=== PATIENT | male | born 1970 | race Caucasian/White ===

== ENCOUNTER 2020-12-05 13:14 | Inpatient (IN) | payer SELFPAY ==
--- NOTE | 2020-12-05 13:27 | Emergency Department Report ---
ED General Adult HPI - General Stated complaint: SWOLLEN LEGS PUI?: No Time Seen by Provider: 12/05/20 13:25 Source: patient, EMS - History of Present Illness Initial comments: Patient was brought in by EMS due to chest pain and palpitations. He is Turkish-speaking. He complains of a 2-day history of substernal chest pain associated palpitations and shortness of breath. He is reported that his legs are also swollen. He has no cough or congestion. There is no vomiting or diarrhea. He states that he came in because his family wanted him to be seen. EMS reports that the family wanted him to be seen previously, but the patient refused. He finally acquiesced today. They noticed that he was in atrial fibrillation with rapid ventricular response. He has no prior history of atrial fibrillation. He also reported significant anasarca with scleral icterus and jaundice. Patient had not noticed any color change. He denies abdominal pain. There is no vomiting. He has no cough. He states that the palpitations and chest pain started over the last 2 days. - Related Data Allergies Allergy/AdvReac Type Severity Reaction Status Date / Time No Known Allergies Allergy Unverified 12/05/20 15:43 ED Review of Systems ROS: Stated complaint: SWOLLEN LEGS Other details as noted in HPI Comment: All other systems reviewed and negative Constitutional: denies: fever Eyes: denies: vision change ENT: denies: throat pain Respiratory: denies: cough Cardiovascular: as per HPI, chest pain, palpitations Endocrine: denies: unexplained weight loss Gastrointestinal: denies: abdominal pain, vomiting Genitourinary: denies: dysuria Musculoskeletal: denies: back pain Skin: denies: rash Neurological: denies: headache Psychiatric: denies: suicidal thoughts Hematological/Lymphatic: denies: easy bruising ED Past Medical Hx - Past Medical History Previous Medical History?: No - Family History Family history: diabetes - Social History Smoking Status: Never Smoker ED Physical Exam - General Limitations: Language Barrier General appearance: alert, in no apparent distress, obese - Head Head exam: Present: atraumatic, normocephalic, normal inspection - Eye Eye exam: Present: PERRL, EOMI, scleral icterus - ENT ENT exam: Present: normal exam, mucous membranes moist - Neck Neck exam: Present: full ROM. Absent: meningismus - Respiratory Respiratory exam: Present: normal lung sounds bilaterally. Absent: respiratory distress - Cardiovascular Cardiovascular Exam: Present: tachycardia, irregular rhythm - GI/Abdominal GI/Abdominal exam: Present: soft. Absent: distended, tenderness - Extremities Exam Extremities exam: Present: pedal edema (Bilateral 4+) - Back Exam Back exam: Absent: CVA tenderness (R), CVA tenderness (L) - Neurological Exam Neurological exam: Present: alert, oriented X3. Absent: motor sensory deficit - Psychiatric Psychiatric exam: Present: normal affect, normal mood - Skin Skin exam: Present: warm, dry, other (Jaundiced) ED Course Vital Signs 12/05/20 12/05/20 12/05/20 14:58 15:01 15:15 Pulse Rate 133 H 127 H 147 H Respiratory 27 H 23 21 Rate Blood Pressure 102/83 O2 Sat by Pulse 94 Oximetry 12/05/20 12/05/20 12/05/20 15:31 15:45 16:01 Pulse Rate 134 H 123 H 134 H Respiratory 22 21 23 Rate Blood Pressure 104/80 112/75 114/77 O2 Sat by Pulse 100 98 Oximetry 12/05/20 12/05/20 12/05/20 16:13 16:15 16:31 Pulse Rate 143 H 82 95 H Respiratory 22 17 Rate Blood Pressure 106/74 101/39 O2 Sat by Pulse 100 Oximetry - Reevaluation(s) Reevaluation #1: 12/05/20 13:27 EMS was actually met upon arrival at 1305 hrs. IV and labs ordered. EKG was ordered. Reevaluation #2: 12/05/20 15:25 Sodium has been reviewed. Labs were being processed. Patient will require admission. Cardizem has been ordered. Reevaluation #3: 12/05/20 18:50 Patient did get improvement with Cardizem. Obviously, we will still proceed with admission. ED Medical Decision Making - Lab Data Result diagrams: 12/05/20 14:14 12/05/20 14:14 - EKG Data -: EKG Interpreted by Me EKG shows normal: intervals Rate: tachycardia (Patient does have atrial fibrillation with rapid ventricular response. There are nonspecific ST and T wave changes noted.) - EKG Data When compared to previous EKG there are: changes noted Interpretation: nonspecific ST-T wave kathrine - Radiology Data Radiology results: report reviewed - Medical Decision Making Patient presented with multiple issues. He was ultimately found to have new onset atrial fibrillation with RVR. This did require Cardizem. Patient has a history of alcohol consumption and was profoundly jaundiced. He likely has some degree of alcoholic liver disease. He will be admitted for further evaluation. He also has hyponatremia at 110 which will require further treatment at admission. He may benefit from fluid restriction. Patient does not have significant hypomagnesemia, but it is sufficiently low that requires treatment. There was no change in troponin. He may develop alcohol withdrawal, but does not have any evidence of tremor at this time. Patient has been discussed with the hospitalist who agrees to admit. Critical Care Time: Yes Critical care attestation.: If time is entered above; I have spent that time in minutes in the direct care of this critically ill patient, excluding procedure time. Critical care time is 35 minutes exclusive of all procedures. ED Disposition Clinical Impression: Atrial fibrillation with rapid ventricular response, Hyponatremia, Transaminitis, Jaundice Disposition: ADMITTED INPATIENT Is pt being admited?: Yes Does the pt Need Aspirin: No Condition: Critical
[2020-12-05 14:27] LABS: Hemoglobin 9.6 gm/dl (11.8-15.2)
[2020-12-05 14:45] LABS: INR 1.5 (0.87-1.13); Mean Corpuscular HGB Conc 32 % (32-34); Mean Corpuscular Volume 93 fl (84-94); Platelet Count 267 K/mm3 (140-440); Red Blood Count 3.25 M/mm3 (3.65-5.03)
[2020-12-05 14:46] LABS: Partial Thromboplastin Time 31.8 Sec. (24.2-36.6)
[2020-12-05 14:55] LABS: Alanine Aminotransferase 55 units/L (7-56); Blood Urea Nitrogen 13 mg/dL (9-20); Calcium 7.7 mg/dL (8.4-10.2); Hemolysis Index 1
[2020-12-05 15:00] LABS: BUN/Creatinine Ratio 65
[2020-12-05 15:03] LABS: Red Cell Distribution Width 23.5 % (13.2-15.2)
--- NOTE | 2020-12-05 15:05 | XRay Report ---
CHEST 2 VIEWS INDICATION / CLINICAL INFORMATION: tachycardia, anasarca. COMPARISON: None available. FINDINGS: SUPPORT DEVICES: None. HEART / MEDIASTINUM: No significant abnormality. LUNGS / PLEURA: Increased interstitial prominence and opacities in bilateral lungs. Peribronchial cuf fing is noted. No pneumothorax. ADDITIONAL FINDINGS: No significant additional findings. IMPRESSION: 1. Increased interstitial prominence and interstitial opacities in bilateral lungs. Findings could re present mild interstitial edema however underlying infection could also have this appearance. Signer Name: Jackson Wick MD Signed: 12/05/2020 3:01 PM Workstation Name: [id number]
[2020-12-05] MEDS ORDERED: MAGNESIUM SULFATE 2 GM/50 ML BAG IV NR (15:41)
--- NOTE | 2020-12-05 15:49 | History and Physical Report ---
History of Present Illness Chief complaint: I feel short of breath History of present illness: 50 YO Male with ETOH Dependence presents to ED for evaluation. Patient reports "I feel short of breath". Patient states that he has experienced shortness of breath, intermittent chest palpitations, as well as chest discomfort over the past 2 days with increased duration and frequency of the aforementioned symptoms over the same timeframe. EMS was notified and upon arrival the patient was found to be in distress and subsequently transported to [facility] for further care and evaluation of the aforementioned symptoms. The patient family reports that patient has been "feeling sick" and has been drinking a lot of alcohol over the past 1 week. Patient seen and evaluated in the emergency department. All lab and imaging studies reviewed. 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 Patient treated with medical cardioversion with improvement in the aforem entioned symptoms. Patient admitted to telemetry due to increased risk of worsening symptoms. Patient treated with IV fluid resuscitation therapy. Patient denies fever, chills, chest pain, productive cough, skin rash, recent ill contacts, or known exposure to COVID-19. No prior admission for review. No medication listed at time of admission for reconciliation. Past History Past Medical History: other (See HPI) Past Surgical History: No surgical history, Other (Reviewed) Social history: single, lives with family, alcohol abuse Family history: no significant family history Medications and Allergies Allergies Allergy/AdvReac Type Severity Reaction Status Date / Time No Known Allergies Allergy Unverified 12/05/20 15:43 Active Meds: Active Medications Diltiazem HCl (Diltiazem 25 Mg/5 Ml Inj) 10 mg IV ONCE NR Stop: 12/05/20 18:00 Magnesium Sulfate (Magnesium Sulfate 2gm/50ml) 2 gm in 50 mls @ 100 mls/hr IV ONCE NR Stop: 12/05/20 18:00 Review of Systems Constitutional: no weight loss, no weight gain, no fever, no chills Ears, nose, mouth and throat: no ear pain, no ear discharge, no decreased hearing, no nasal congestion Cardiovascular: palpitations, shortness of breath, leg edema Respiratory: no cough, no cough with sputum Gastrointestinal: no abdominal pain, no diarrhea, no change in bowel habits, no hematemesis Genitourinary Male: no hematuria, no flank pain, no discharge, no urinary frequency, no urinary hesitancy Rectal: no pain, no incontinence Musculoskeletal: no shooting arm pain, no arm numbness/tingling, no shooting leg pain Integumentary: no rash, no redness, no sores, no wounds Neurological: no head injury, no transient paralysis, no parathesias, no tingling, no seizures, no syncope, no tremors Psychiatric: no anxiety, no memory loss, no insomnia, no hypersomnia, no change in appetite, no change in libido Endocrine: no cold intolerance, no heat intolerance, no excessive thirst, no polydipsia, no polyuria, no excessive sweating Hematologic/Lymphatic: no easy bruising, no easy bleeding, no lymphadenopathy Allergic/Immunologic: no persistent infections, no anaphylaxis Exam - Constitutional Vitals: Temp Pulse Resp BP Pulse Ox 134 H 22 104/80 100 12/05/20 15:31 12/05/20 15:31 12/05/20 15:31 12/05/20 15:31 General appearance: Present: mild distress - EENT Eyes: Present: PERRL, scleral icterus ENT: hearing intact - Neck Neck: Present: supple, normal ROM - Respiratory Respiratory effort: normal Respiratory: bilateral: CTA - Cardiovascular Rhythm: irregularly irregular Heart Sounds: Present: S1 & S2. Absent: rub, click - Extremities Extremities: pulses symmetrical, No edema Extremity abnormal: edema Peripheral Pulses: within normal limits - Abdominal General gastrointestinal: Present: soft, non-tender, non-distended, normal bowel sounds Male genitourinary: Present: normal - Integumentary Integumentary: Present: clear, dry, jaundice - Musculoskeletal Musculoskeletal: generalized weakness - Psychiatric Psychiatric: appropriate mood/affect, intact judgment & insight - Neurologic Neurologic: CNII-XII intact, moves all extremities HEART Score - HEART Score Troponin: Troponin T < 0.010 ng/mL (0.00-0.029) 12/05/20 14:14 Results - Labs CBC & Chem 7: 12/05/20 14:14 12/05/20 14:14 Labs: Abnormal lab results 12/05/20 12/05/20 12/05/20 Range/Units 14:14 14:14 14:14 WBC 11.6 H (4.5-11.0) K/mm3 RBC 3.25 L (3.65-5.03) M/mm3 Hgb 9.6 L (11.8-15.2) gm/dl Hct 30.0 L (35.5-45.6) % RDW 23.5 H (13.2-15.2) % PT 18.6 H (12.2-14.9) Sec. INR 1.50 H (0.87-1.13) Sodium 110 L* (137-145) mmol/L Chloride 79.6 L (98-107) mmol/L Carbon Dioxide 19 L (22-30) mmol/L Creatinine < 0.2 L (0.8-1.3) mg/dL Glucose 105 H (75-100) mg/dL Calcium 7.7 L (8.4-10.2) mg/dL Magnesium (1.7-2.3) mg/dL Total Bilirubin 14.50 H (0.1-1.2) mg/dL AST 64 H (5-40) units/L Alkaline Phosphatase 238 H (35-129) units/L Total Protein 5.8 L (6.3-8.2) g/dL Albumin 3.0 L (3.9-5) g/dL 12/05/20 Range/Units 14:14 WBC (4.5-11.0) K/mm3 RBC (3.65-5.03) M/mm3 Hgb (11.8-15.2) gm/dl Hct (35.5-45.6) % RDW (13.2-15.2) % PT (12.2-14.9) Sec. INR (0.87-1.13) Sodium (137-145) mmol/L Chloride (98-107) mmol/L Carbon Dioxide (22-30) mmol/L Creatinine (0.8-1.3) mg/dL Glucose (75-100) mg/dL Calcium (8.4-10.2) mg/dL Magnesium 1.60 L (1.7-2.3) mg/dL Total Bilirubin (0.1-1.2) mg/dL AST (5-40) units/L Alkaline Phosphatase (35-129) units/L Total Protein (6.3-8.2) g/dL Albumin (3.9-5) g/dL Assessment and Plan - Patient Problems (1) Atrial fibrillation with rapid ventricular response Current Visit: No Status: Acute Plan to address problem: EKG, telemetry monitoring, medical cardioversion in the emergency department. Supportive care, cardiology team consulted. Further care as per cardiology team. (2) Alcoholic liver disease Current Visit: Yes Status: Acute Plan to address problem: CIWA protocol, fractionated bilirubin, CT scan abdomen and pelvis has been ordered and is pending at time of admission to evaluate for hepatobiliary obstruction (3) Hyponatremia Current Visit: No Status: Acute Plan to address problem: IV fluid resuscitation therapy, BMP, repeat BMP in a.m. Oral sodium repletion, monitor fluid balance, (4) DVT prophylaxis Current Visit: Yes Status: Acute Plan to address problem: SCD to bilateral lower extremities while in bed, patient is ambulatory
[2020-12-05] MEDS ORDERED: dilTIAZem 25 MG/5 ML INJ IV NR (16:00)
[2020-12-05 16:01] LABS: Band Neutrophils # (Manual) 0.3 K/mm3; Total Cells Counted 100
[2020-12-05 16:02] LABS: Anisocytosis 1+; Hypochromasia Few; Macrocytosis 1+; Platelet Estimate Consistent w Auto; Target Cells 2+
[2020-12-05 16:43] LABS: Bilirubin,Direct 10.4 mg/dL (0-0.2)
[2020-12-05] MEDS ORDERED: ONDANSETRON 4 MG/2 ML INJ IV PRN (17:11)
[2020-12-05] MEDS ORDERED: ALBUTEROL 2.5 MG/3 ML NEBU IH PRN (17:11)
[2020-12-05] MEDS ORDERED: IBUPROFEN 600 MG TAB PO PRN (17:11)
[2020-12-05] MEDS ORDERED: SODIUM CHLORIDE 0.9% 1000 ML 2,000 ML IV ONE (17:16)
[2020-12-05] MEDS: 1: FOLIC ACID 1 MG, MULTIPLE VITAMIN INJ, ADULT 10 ML, THIAMINE 100 MG in SODIUM CHLORID IV SCH (19:40)
--- NOTE | 2020-12-05 20:09 | Cat Scan Report ---
CT ABDOMEN AND PELVIS WITH CONTRAST INDICATION: jaundice CONTRAST: Unspecified dosage Omnipaque 300 IV COMPARISON: None available. All CT scans at this location are performed using CT dose reduction for ALARA by means of automated e xposure control. FINDINGS: Moderate right pleural effusion is seen with associated atelectatic changes in the right lo wer lobe. Minimal left pleural effusion is noted. Mild chronic changes are seen in the lung bases. No pneumoperitoneum is seen. Moderate diffuse subcutaneous edema is noted and mild edema seen through out the abdomen or pelvis. Moderate ascites is noted diffusely in the abdomen or pelvis. No urinary o bstructive changes are seen. Gallbladder may show mild sludge but no definite calculi are noted. Ther e is some fluid around the gallbladder but is probably just relates to ascites and no definite acute changes noted. No biliary dilatation is seen. Liver shows mild fatty infiltration without obvious foc al lesion. Liver is mildly enlarged and has a length of 18.8 cm. Spleen is not enlarged. I do not christen rony see evidence of cirrhosis and no evidence of portal hypertension is seen. Stomach is mildly dist ended with fluid and air. No evidence of bowel obstruction is noted. Appendix appears within normal l imits. No definite inflammatory changes are seen. No lymphadenopathy is noted. No organized fluid col lections are seen. Pancreas shows no lesions. IMPRESSION: Evidence of anasarca with bilateral pleural effusions, diffuse subcutaneous and internal edema, and moderate ascites. No focal lesions of significance are noted as described. Signer Name: Boogie Wakefield MD Signed: 12/05/2020 8:04 PM Workstation Name: [id number]
[2020-12-05] MEDS: HYDROmorphone 1 MG/1 ML INJ IV PRN (22:48)
[2020-12-05] MEDS: SODIUM CHLORIDE 1 GM TAB PO SCH (22:50)
[2020-12-06 05:42] LABS: Blood Urea Nitrogen 12 mg/dL (9-20); Calcium 6.9 mg/dL (8.4-10.2); Hemolysis Index 8
[2020-12-06 05:45] LABS: BUN/Creatinine Ratio 60
[2020-12-06] MEDS: SODIUM CHLORIDE 1 GM TAB PO SCH ×2 (06:50→12:19)
[2020-12-06] MEDS: MORPHINE 2 MG/1 ML INJ IV PRN ×3 (07:00→15:27)
[2020-12-06] MEDS ORDERED: SODIUM CHLORIDE 0.9% 1000 ML 1,000 ML ONE (09:07)
[2020-12-06] MEDS: 1: FOLIC ACID 1 MG, MULTIPLE VITAMIN INJ, ADULT 10 ML, THIAMINE 100 MG in SODIUM CHLORID IV SCH ×2 (09:20→20:58)
[2020-12-06] MEDS: SODIUM CHLORIDE 0.9% 1000 ML 1,000 ML IV SCH (10:00)
--- NOTE | 2020-12-06 10:24 | Consultation ---
History of Present Illness Consult date: 12/06/20 Requesting physician: KENYA MERCADO Consult reason: atrial fibrillation History of present illness: Patient is a 50-year-old male with a significant history of EtOH dependence. He is previously unknown to our practice. Patient presents to [facility] with chief complaint of nausea/vomiting, shortness of breath, complications, intermittent chest pain x2 days. Patient was found to be severel y hyponatremic (NA 114) and in atrial fibrillation with RVR. Bilateral lower extremity edema 3+ x5 days per patient. At time of interview patient denies any chest discomfort. He does endorse 5-6 alcoholic beverages per day. He is not followed regularly by cardiology. Patient denies any weakness, dizziness, abdominal pain, recent illness or known exposures. Patient does represent language barrier with primary language being Chinese with limited Palestinian. Thus history is supplemented by the chart. No previous admissions or diagnostic records available for comparison. Past History Past Medical History: other (See HPI) Past Surgical History: No surgical history, Other (Reviewed) Social history: single, lives with family, alcohol abuse Family history: no significant family history Medications and Allergies Allergies Allergy/AdvReac Type Severity Reaction Status Date / Time No Known Allergies Allergy Unverified 12/05/20 15:43 Active Meds: Active Medications Albuterol (Albuterol 2.5 Mg/3 Ml Nebu) 2.5 mg IH Q4HRT PRN PRN Reason: Shortness Of Breath Folic Acid (Folic Acid 1 Mg Tab) 1 mg PO QDAY WESLEY Hydromorphone HCl (Hydromorphone 1 Mg/1 Ml Inj) 0.5 mg IV Q12H PRN PRN Reason: Pain , Severe (7-10) Last Admin: 12/05/20 22:48 Dose: 0.5 mg Documented by: Folic Acid 1 mg/ Multivitamins /Minerals 10 ml/ Thiamine HCl 100 mg/ Sodium Chloride 1,000 mls @ 125 mls/hr IV .BY DURATION [facility] Last Admin: 12/05/20 19:40 Dose: 125 mls/hr Documented by: Sodium Chloride (Nacl 0.9% 1000 Ml) 1,000 mls @ 125 mls/hr IV .BY DURATION [facility] Last Admin: 12/06/20 09:20 Dose: 125 mls/hr Documented by: Amiodarone HCl 150 mg/ (Dextrose) 100 mls @ 600 mls/hr IV ONCE ONE; Protocol Stop: 12/06/20 10:24 Amiodarone HCl 150 mg/ (Dextrose) 103 mls @ 600 mls/hr IV ONCE ONE Stop: 12/06/20 10:25 Ibuprofen (Ibuprofen 600 Mg Tab) 600 mg PO Q6H PRN PRN Reason: Pain, Mild (1-3) Lorazepam (Lorazepam 2 Mg/Ml Vial) 2 mg IV Q1HR PRN PRN Reason: CIWA-Ar 8-15 Morphine Sulfate (Morphine 2 Mg/1 Ml Inj) 1 mg IV Q8H PRN PRN Reason: Pain, Moderate (4-6) Last Admin: 12/06/20 07:00 Dose: 1 mg Documented by: Multivitamins (Multivitamins ,Therapeutic Tab) 1 each PO QDAY [facility] Ondansetron HCl (Ondansetron 4 Mg/2 Ml Inj) 4 mg IV Q8H PRN PRN Reason: Nausea And Vomiting Sodium Chloride (Sodium Chloride 0.9% 10 Ml Flush Syringe) 10 ml IV BID [facility] Last Admin: 12/05/20 22:51 Dose: 10 ml Documented by: Sodium Chloride (Sodium Chloride 0.9% 10 Ml Flush Syringe) 10 ml IV PRN PRN PRN Reason: LINE FLUSH Sodium Chloride (Sodium Chloride 1 Gm Tab) 1 gm PO BID [facility] Stop: 12/06/20 17:59 Last Admin: 12/06/20 06:50 Dose: Not Given Documented by: Thiamine HCl (Thiamine 100 Mg Tab) 100 mg PO QDAY [facility] Review of Systems Constitutional: no weight loss, no weight gain, no fever, no chills, no sweats, no night sweats Ears, nose, mouth and throat: no ear pain, no ear discharge, no nasal discharge, no sinus pressure, no sinus pain Cardiovascular: chest pain, palpitations, rapid/irregular heart beat, shortness of breath, no orthopnea, no edema, no syncope, no lightheadedness Respiratory: shortness of breath, no cough, no cough with sputum, no excessive sputum, no hemoptysis, no dyspnea on exertion Gastrointestinal: nausea, vomiting, no abdominal pain, no diarrhea, no constipation, no change in bowel habits, no hematemesis, no coffee ground emesis Genitourinary Male: no flank pain Musculoskeletal: no neck stiffness, no neck pain, no shooting arm pain, no arm numbness/tingling, no low back pain, no shooting leg pain Integumentary: jaundice, no rash, no pruritis, no redness, no sores, no wounds Neurological: no head injury, no paralysis, no weakness, no parathesias, no numbness, no tingling, no seizures, no syncope Psychiatric: no anxiety Endocrine: no cold intolerance, no heat intolerance Hematologic/Lymphatic: no easy bruising, no easy bleeding Allergic/Immunologic: no urticaria Physical Examination Last Vital Signs Temp Pulse 119 H 12/06/20 10:01 Resp 17 12/06/20 10:01 BP 111/86 12/06/20 10:01 Pulse Ox 100 12/06/20 10:09 General appearance: no acute distress HEENT: Positive: PERRL, Normocephaly, Mucus Membranes Moist Neck: Positive: neck supple, trachea midline Cardiac: Positive: irregularly irregular, S1/S2 Lungs: Positive: clear to auscultation, Normal Breath Sounds Neuro: Positive: Grossly Intact Abdomen: Positive: Soft, Active Bowel Sounds Skin: Negative: Rash, Wound Musculoskeletal: No Fluid Collection, No Pain, Normal Range of Motion Extremities: Present: upper extr. pulses, lower extr. pulses, +3 Edema Results 12/05/20 14:14 12/06/20 10:01 Cardiac Enzymes 12/05/20 Range/Units 14:14 AST 64 H (5-40) units/L Coagulation 12/05/20 Range/Units 14:14 PT 18.6 H (12.2-14.9) Sec. INR 1.50 H (0.87-1.13) APTT 31.8 (24.2-36.6) Sec. CBC 12/05/20 Range/Units 14:14 WBC 11.6 H (4.5-11.0) K/mm3 RBC 3.25 L (3.65-5.03) M/mm3 Hgb 9.6 L (11.8-15.2) gm/dl Hct 30.0 L (35.5-45.6) % Plt Count 267 (140-440) K/mm3 Comprehensive Metabolic Panel 12/05/20 12/05/20 12/06/20 Range/Units 14:14 16:05 04:32 Sodium 110 L* 114 L* (137-145) mmol/L Potassium 4.8 4.6 (3.6-5.0) mmol/L Chloride 79.6 L 84.2 L (98-107) mmol/L Carbon Dioxide 19 L 21 L (22-30) mmol/L BUN 13 12 (9-20) mg/dL Creatinine < 0.2 L < 0.2 L (0.8-1.3) mg/dL Glucose 105 H 105 H (75-100) mg/dL Calcium 7.7 L 6.9 L (8.4-10.2) mg/dL Direct Bilirubin 10.4 H (0-0.2) mg/dL Indirect Bilirubin 4.6 mg/dL AST 64 H (5-40) units/L ALT 55 (7-56) units/L Alkaline Phosphatase 238 H (35-129) units/L Total Protein 5.8 L (6.3-8.2) g/dL Albumin 3.0 L (3.9-5) g/dL - Imaging and Cardiology Echo: pending EKG: report reviewed, image reviewed EKG interpretations - Telemetry EKG Rhythm: Atrial Fibrillation - EKG Supraventricular dysrhythmia: atrial fibrillation Assessment and Plan Telemetry reviewed: A. fib heart rate 105 Chest pain, intermittent * Patient is currently chest pain-free. Twelve-lead reviewed shows atrial fibrillation with no acute ischemic changes. Troponin is negative x1. Repeat troponin is pending. We will continue to trend cardiac enzymes * Echocardiogram is pending A. fib RVR * Initiate amiodarone drip with 150 mg loading dose titrate to heart rate less than 100 bpm * No beta-blockers at this time due to soft blood pressure * No anticoagulation at this time as patient is low risk for stroke/TIA/systemic embolism. [id number] evaluation tool. Hyponatremia/hypomagnesemia * Currently being repleted. Management per primary team * 3+ bilateral lower extremity edema noted. No rales or shortness of breath noted. We will plan to optimize volume control once hyponatremia is resolved. [facility] protocol for alcohol dependence * Management per primary team DVT prophylaxis * Heparin SQ Echocardiogram is pending. Will follow. This patient was seen in conjunction with Dr Dai who agrees with this assessment plan of care - Patient Problems (1) Alcohol dependence Current Visit: Yes Status: Chronic (2) Atrial fibrillation with RVR Current Visit: Yes Status: Acute (3) Hyponatremia Current Visit: Yes Status: Acute (4) Hypomagnesemia Current Visit: Yes Status: Acute (5) Chest pain Current Visit: Yes Status: Acute (6) Alcoholic liver disease Current Visit: Yes Status: Chronic (7) DVT prophylaxis Current Visit: Yes Status: Acute
[2020-12-06 10:46] LABS: Blood Urea Nitrogen 12 mg/dL (9-20); Calcium 7.8 mg/dL (8.4-10.2); Hemolysis Index 12
--- NOTE | 2020-12-06 10:46 | Progress Note ---
Assessment and Plan Assessment and plan: (1) Atrial fibrillation with rapid ventricular response Current Visit: No Status: Acute Plan to address problem: EKG, telemetry monitoring, medical cardioversion in the emergency department. Supportive care, cardiology team consulted. (2) Alcoholic liver disease Current Visit: Yes Status: Acute Plan to address problem: CIWA protocol, fractionated bilirubin, CT scan abdomen and pelvis has been ordered and is pending at time of admission to evaluate for hepatobiliary obstruction GI consulted (3) Hyponatremia Current Visit: No Status: Acute Plan to address problem: IV fluid resuscitation therapy, BMP, repeat BMP in a.m. monitor fluid balance, (4) DVT prophylaxis Current Visit: Yes Status: Acute Plan to address problem: SCD to bilateral lower extremities while in bed, patient is ambulatory 12/06/20 Patient with atrial fibrillation with RVR, severe hyponatremia, alcoholic liver disease. Consulted Cardiology, GI and Nephrology. Started on Amiodarone, iv fluids, Thiamine Sodium 114 History Interval history: shortness of breath palpitations Hospitalist Physical - Physical exam Narrative exam: Gen:Not in acute distress, lying in bed,jaundiced HEENT:Normocephalic, atraumatic Neck:supple, no JVD Lungs: Bilateral crackles, no wheeze Heart:S1 and S2 reg, no murmurs, rubs or gallop Abd:Soft, non tender, non distended, normal bowel sounds Ext: Bilateral marked pitting edema. no clubbing, no cyanosis Neuro:Awake, alert, oriented X 3, moves all extremities - Constitutional Vitals: Temp Pulse Resp BP Pulse Ox 119 H 17 111/86 100 12/06/20 10:01 12/06/20 10:01 12/06/20 10:01 12/06/20 10:09 General appearance: Present: no acute distress HEART Score - HEART Score Troponin: Troponin T < 0.010 ng/mL (0.00-0.029) 12/05/20 14:14 Results - Labs CBC & Chem 7: 12/05/20 14:14 12/06/20 10:01 Labs: Laboratory Last Values WBC 11.6 K/mm3 (4.5-11.0) H 12/05/20 14:14 RBC 3.25 M/mm3 (3.65-5.03) L 12/05/20 14:14 Hgb 9.6 gm/dl (11.8-15.2) L 12/05/20 14:14 Hct 30.0 % (35.5-45.6) L 12/05/20 14:14 MCV 93 fl (84-94) 12/05/20 14:14 MCH 30 pg (28-32) 12/05/20 14:14 MCHC 32 % (32-34) 12/05/20 14:14 RDW 23.5 % (13.2-15.2) H 12/05/20 14:14 Plt Count 267 K/mm3 (140-440) 12/05/20 14:14 Add Manual Diff Complete 12/05/20 14:14 Total Counted 100 12/05/20 14:14 Seg Neuts % (Manual) 90.0 % (40.0-70.0) H 12/05/20 14:14 Band Neutrophils % 3.0 % 12/05/20 14:14 Lymphocytes % (Manual) 4.0 % (13.4-35.0) L 12/05/20 14:14 Monocytes % (Manual) 2.0 % (0.0-7.3) 12/05/20 14:14 Eosinophils % (Manual) 1.0 % (0.0-4.3) 12/05/20 14:14 Nucleated RBC % Not Reportable 12/05/20 14:14 Seg Neutrophils # Man 10.4 K/mm3 (1.8-7.7) H 12/05/20 14:14 Band Neutrophils # 0.3 K/mm3 12/05/20 14:14 Lymphocytes # (Manual) 0.5 K/mm3 (1.2-5.4) L 12/05/20 14:14 Abs React Lymphs (Man) 0.0 K/mm3 12/05/20 14:14 Monocytes # (Manual) 0.2 K/mm3 (0.0-0.8) 12/05/20 14:14 Eosinophils # (Manual) 0.1 K/mm3 (0.0-0.4) 12/05/20 14:14 Basophils # (Manual) 0.0 K/mm3 (0.0-0.1) 12/05/20 14:14 Metamyelocytes # 0.0 K/mm3 12/05/20 14:14 Myelocytes # 0.0 K/mm3 12/05/20 14:14 Promyelocytes # 0.0 K/mm3 12/05/20 14:14 Blast Cells # 0.0 K/mm3 12/05/20 14:14 WBC Morphology Not Reportable 12/05/20 14:14 Hypersegmented Neuts Not Reportable 12/05/20 14:14 Hyposegmented Neuts Not Reportable 12/05/20 14:14 Hypogranular Neuts Not Reportable 12/05/20 14:14 Smudge Cells Not Reportable 12/05/20 14:14 Toxic Granulation Not Reportable 12/05/20 14:14 Toxic Vacuolation Not Reportable 12/05/20 14:14 Dohle Bodies Not Reportable 12/05/20 14:14 Pelger-Huet Anomaly Not Reportable 12/05/20 14:14 Tamiko Rods Not Reportable 12/05/20 14:14 Platelet Estimate Consistent w auto 12/05/20 14:14 Clumped Platelets Not Reportable 12/05/20 14:14 Plt Clumps, EDTA Not Reportable 12/05/20 14:14 Large Platelets Not Reportable 12/05/20 14:14 Giant Platelets Not Reportable 12/05/20 14:14 Platelet Satelliting Not Reportable 12/05/20 14:14 Plt Morphology Comment Not Reportable 12/05/20 14:14 RBC Morphology Not Reportable 12/05/20 14:14 Dimorphic RBCs Not Reportable 12/05/20 14:14 Polychromasia Not Reportable 12/05/20 14:14 Hypochromasia Few 12/05/20 14:14 Poikilocytosis Not Reportable 12/05/20 14:14 Anisocytosis 1+ 12/05/20 14:14 Microcytosis Not Reportable 12/05/20 14:14 Macrocytosis 1+ 12/05/20 14:14 Spherocytes Not Reportable 12/05/20 14:14 Pappenheimer Bodies Not Reportable 12/05/20 14:14 Sickle Cells Not Reportable 12/05/20 14:14 Target Cells 2+ 12/05/20 14:14 Tear Drop Cells Not Reportable 12/05/20 14:14 Ovalocytes Not Reportable 12/05/20 14:14 Helmet Cells Not Reportable 12/05/20 14:14 Guillen-Filer Bodies Not Reportable 12/05/20 14:14 [place] Rings Not Reportable 12/05/20 14:14 [place] Cells Not Reportable 12/05/20 14:14 Bite Cells Not Reportable 12/05/20 14:14 Crenated Cell Not Reportable 12/05/20 14:14 Elliptocytes Not Reportable 12/05/20 14:14 Acanthocytes (Spur) Not Reportable 12/05/20 14:14 Rouleaux Not Reportable 12/05/20 14:14 Hemoglobin C Crystals Not Reportable 12/05/20 14:14 Schistocytes Not Reportable 12/05/20 14:14 Malaria parasites Not Reportable 12/05/20 14:14 Parrish Bodies Not Reportable 12/05/20 14:14 Hem Pathologist Commnt No 12/05/20 14:14 PT 18.6 Sec. (12.2-14.9) H 12/05/20 14:14 INR 1.50 (0.87-1.13) H 12/05/20 14:14 APTT 31.8 Sec. (24.2-36.6) 12/05/20 14:14 Sodium 114 mmol/L (137-145) L* 12/06/20 04:32 Potassium 4.6 mmol/L (3.6-5.0) 12/06/20 04:32 Chloride 84.2 mmol/L (98-107) L 12/06/20 04:32 Carbon Dioxide 21 mmol/L (22-30) L 12/06/20 04:32 Anion Gap 13 mmol/L 12/06/20 04:32 BUN 12 mg/dL (9-20) 12/06/20 04:32 Creatinine < 0.2 mg/dL (0.8-1.3) L 12/06/20 04:32 Estimated GFR > 60 ml/min 12/06/20 04:32 BUN/Creatinine Ratio 60 % 12/06/20 04:32 Glucose 105 mg/dL (75-100) H 12/06/20 04:32 Calcium 6.9 mg/dL (8.4-10.2) L 12/06/20 04:32 Magnesium 1.60 mg/dL (1.7-2.3) L 12/05/20 14:14 Total Bilirubin 15.00 mg/dL (0.1-1.2) H 12/05/20 16:05 Direct Bilirubin 10.4 mg/dL (0-0.2) H 12/05/20 16:05 Indirect Bilirubin 4.6 mg/dL 12/05/20 16:05 AST 64 units/L (5-40) H 12/05/20 14:14 ALT 55 units/L (7-56) 12/05/20 14:14 Alkaline Phosphatase 238 units/L (35-129) H 12/05/20 14:14 Troponin T < 0.010 ng/mL (0.00-0.029) 12/05/20 14:14 Total Protein 5.8 g/dL (6.3-8.2) L 12/05/20 14:14 Albumin 3.0 g/dL (3.9-5) L 12/05/20 14:14 Albumin/Globulin Ratio 1.1 % 12/05/20 14:14 Plasma/Serum Alcohol < 0.01 % (0-0.07) 12/05/20 14:14 Active Medications - Current Medications Current Medications: Generic Name Dose Route Start Last Admin Trade Name Freq PRN Reason Stop Dose Admin Albuterol 2.5 mg 12/05/20 17:11 Albuterol 2.5 Mg/3 Ml Nebu IH Q4HRT PRN Shortness Of Breath Folic Acid 1 mg 12/06/20 10:00 Folic Acid 1 Mg Tab PO QDAY [facility] Hydromorphone HCl 0.5 mg 12/05/20 17:11 12/05/20 22:48 Hydromorphone 1 Mg/1 Ml Inj IV 0.5 mg Q12H PRN Administration Pain , Severe (7-10) Folic Acid 1 mg/ Multivitamins 1,000 mls @ 125 mls/hr 12/05/20 18:00 12/05/20 19:40 /Minerals 10 ml/ Thiamine HCl IV 125 mls/hr 100 mg/ Sodium Chloride .BY DURATION [facility] Administration Sodium Chloride 1,000 mls @ 125 mls/hr 12/05/20 18:00 12/06/20 09:20 Nacl 0.9% 1000 Ml IV 125 mls/hr .BY DURATION [facility] Administration Amiodarone HCl 150 mg/ 100 mls @ 600 mls/hr 12/06/20 10:15 Dextrose IV 12/06/20 10:24 ONCE ONE Protocol Amiodarone HCl 150 mg/ 103 mls @ 600 mls/hr 12/06/20 10:15 Dextrose IV 12/06/20 10:25 ONCE ONE Ibuprofen 600 mg 12/05/20 17:11 Ibuprofen 600 Mg Tab PO Q6H PRN Pain, Mild (1-3) Lorazepam 2 mg 12/05/20 17:13 Lorazepam 2 Mg/Ml Vial IV Q1HR PRN CIWA-Ar 8-15 Morphine Sulfate 1 mg 12/05/20 17:11 12/06/20 07:00 Morphine 2 Mg/1 Ml Inj IV 1 mg Q8H PRN Administration Pain, Moderate (4-6) Multivitamins 1 each 12/06/20 10:00 Multivitamins ,Therapeutic Tab PO QDAY [facility] Ondansetron HCl 4 mg 12/05/20 17:11 Ondansetron 4 Mg/2 Ml Inj IV Q8H PRN Nausea And Vomiting Sodium Chloride 10 ml 12/05/20 22:00 12/05/20 22:51 Sodium Chloride 0.9% 10 Ml Flush Syringe IV 10 ml BID [facility] Administration Sodium Chloride 10 ml 12/05/20 17:11 Sodium Chloride 0.9% 10 Ml Flush Syringe IV PRN PRN LINE FLUSH Sodium Chloride 1 gm 12/05/20 18:00 12/06/20 06:50 Sodium Chloride 1 Gm Tab PO 12/06/20 17:59 Not Given BID [facility] Thiamine HCl 100 mg 12/06/20 10:00 Thiamine 100 Mg Tab PO QDAY [facility]
[2020-12-06 11:00] LABS: BUN/Creatinine Ratio 60
[2020-12-06] MEDS ORDERED: AMIODARONE 150 MG in DEXTROSE 5% IN WATER 97 ML IV ONE (11:00)
[2020-12-06] MEDS ORDERED: FUROSEMIDE 20 MG/2 ML INJ IV SCH (12:00)
--- NOTE | 2020-12-06 12:04 | Consultation ---
History of Present Illness - Reason for Consult Consult date: 12/06/20 hyponatremia - History of Present Illness This is a 50 year old man who presents with edema, found to be hyponatremic to 110 on arrival as well as A-fib with RVR. Notes regular alcohol use; family notes that patient has been feeling sick recently. Also notes feeling short of breath with chest palpitations. Denies any known kidney disease. Feeling "ok" at time of consult Past History Past Medical History: other (See HPI) Past Surgical History: No surgical history, Other (Reviewed) Social history: single, lives with family, alcohol abuse Family history: no significant family history Medications and Allergies Allergies Allergy/AdvReac Type Severity Reaction Status Date / Time No Known Allergies Allergy Unverified 12/05/20 15:43 Active Meds: Active Medications Albuterol (Albuterol 2.5 Mg/3 Ml Nebu) 2.5 mg IH Q4HRT PRN PRN Reason: Shortness Of Breath Folic Acid (Folic Acid 1 Mg Tab) 1 mg PO QDAY [facility] Furosemide (Furosemide 20 Mg/2 Ml Inj) 20 mg IV 0600,1800 [facility] Hydromorphone HCl (Hydromorphone 1 Mg/1 Ml Inj) 0.5 mg IV Q12H PRN PRN Reason: Pain , Severe (7-10) Last Admin: 12/05/20 22:48 Dose: 0.5 mg Documented by: Folic Acid 1 mg/ Multivitamins /Minerals 10 ml/ Thiamine HCl 100 mg/ Sodium Chloride 1,000 mls @ 125 mls/hr IV .BY DURATION [facility] Last Admin: 12/05/20 19:40 Dose: 125 mls/hr Documented by: Sodium Chloride (Nacl 0.9% 1000 Ml) 1,000 mls @ 125 mls/hr IV .BY DURATION [facility] Last Admin: 12/06/20 09:20 Dose: 125 mls/hr Documented by: Amiodarone HCl 900 mg/ (Dextrose) 500 mls @ 33.333 mls/hr IV DIRECT [facility]; Protocol Ibuprofen (Ibuprofen 600 Mg Tab) 600 mg PO Q6H PRN PRN Reason: Pain, Mild (1-3) Lorazepam (Lorazepam 2 Mg/Ml Vial) 2 mg IV Q1HR PRN PRN Reason: CIWA-Ar 8-15 Morphine Sulfate (Morphine 2 Mg/1 Ml Inj) 1 mg IV Q8H PRN PRN Reason: Pain, Moderate (4-6) Last Admin: 12/06/20 07:00 Dose: 1 mg Documented by: Multivitamins (Multivitamins ,Therapeutic Tab) 1 each PO QDAY [facility] Ondansetron HCl (Ondansetron 4 Mg/2 Ml Inj) 4 mg IV Q8H PRN PRN Reason: Nausea And Vomiting Sodium Chloride (Sodium Chloride 0.9% 10 Ml Flush Syringe) 10 ml IV BID [facility] Last Admin: 12/05/20 22:51 Dose: 10 ml Documented by: Sodium Chloride (Sodium Chloride 0.9% 10 Ml Flush Syringe) 10 ml IV PRN PRN PRN Reason: LINE FLUSH Sodium Chloride (Sodium Chloride 1 Gm Tab) 1 gm PO BID [facility] Stop: 12/06/20 17:59 Last Admin: 12/06/20 06:50 Dose: Not Given Documented by: Thiamine HCl (Thiamine 100 Mg Tab) 100 mg PO QDAY [facility] Review of Systems All systems: negative (as per HPI) Exam - Vital Signs Vital signs: Vital Signs Pulse Resp Pulse Ox 133 H 27 H 94 12/05/20 14:58 12/05/20 14:58 12/05/20 14:58 - General Appearance General appearance: well-developed, appears stated age, obese, other (jaundiced appearing, anasarca noted) EENT: ATNC, PERRL, other (icteric sclera note) Neck: Present: neck supple Respiratory: Clear to Ascultation Heart: tachycardia, S1S2 Gastrointestinal: Present: normoactive bowel sounds Integumentary: no rash, warm and dry, other (jaundice) Neurologic: no focal deficit, alert and oriented x3, CN 3-12 intact Psychiatric: mood/affect appropriate Results - Lab Results 12/05/20 14:14 12/06/20 10:01 Most recent lab results Calcium 7.8 mg/dL (8.4-10.2) L 12/06/20 10:01 Phosphorus 2.50 mg/dL (2.5-4.5) 12/06/20 10:01 Magnesium 1.90 mg/dL (1.7-2.3) 12/06/20 10:01 Assessment and Plan # Hyponatremia: suspect due to alcohol abuse, decreased po intake and potential "beer drinking potomania" phenomenon. Certainly may also have hypervolemic hyponatremia in setting of liver disease, but suspect acutely worsened with alcohol abuse - agree with ongoing IVF, do not overcorrect to greater than 118 within 24 hours due to ODS risk, will need free water or desmopressin if overcorrecting - recommend q6-8 hour sodium/BMP checks - agree with banana bag, magnesium repletion - have ordered urine osm, na; likely to be less clinically helpful as he is already on IVF - defer TSH, cortisol at this time given clinical history - no indication for hypertonic saline as he is mentating appropriately, no seizures, etc # A-fib with RVR: suspect due to alcohol intake, appreciate cardiology. S/p amio bolus, echo pending # CIWA protocol for alcohol withdrawal concern: per primary, agree with mag repletion # Transminitis/Jaundice/Hyperbilirubinemia/Hypoalbuminemia: appreciate hepatology input; reviewed CT abd/pelvis. Given edema on exam, will likely need diuretics but would hold for now as likely intravascularly depleted
[2020-12-06] MEDS: AMIODARONE 150 MG in DEXTROSE 5% IN WATER 100 ML IV ONE ×2 (12:18→13:50)
[2020-12-06] MEDS: MULTIVITAMINS ,THERAPEUTIC TAB PO SCH (12:19)
[2020-12-06] MEDS: THIAMINE 100 MG TAB PO SCH (12:19)
[2020-12-06] MEDS: FOLIC ACID 1 MG TAB PO SCH (12:19)
--- NOTE | 2020-12-06 12:22 | Gastroenterology Consultation ---
History of Present Illness - Reason for Consult Consult date: 12/06/20 Jaundice Requesting physician: KENYA MERCADO - History of Present Illness Utilized telephone diplomatic interpreter/translator #[id number] Patient reports that he came in for lower extremity edema which is worsening over the last few days. He denies increased alcohol intake recently, drinks 3 to 4 bottles 16 ounce beers every 2 to 3 days Reports intermittent chest pain ever since fell down playing football and hurt himself Denies jaundice until today Denies known history of liver disease Of note, ER notes document that " The patient family reports that patient has been "feeling sick" and has been drinking a lot of alcohol over the past 1 week. " And he was found to have afib with RVR Obtained/updated/reviewed patient's current medications Past History Past Medical History: other (See HPI) Past Surgical History: No surgical history, Other (Reviewed) Social history: single, lives with family, alcohol abuse Family history: no significant family history Medications and Allergies Allergies Allergy/AdvReac Type Severity Reaction Status Date / Time No Known Allergies Allergy Unverified 12/05/20 15:43 Active Meds: Active Medications Albuterol (Albuterol 2.5 Mg/3 Ml Nebu) 2.5 mg IH Q4HRT PRN PRN Reason: Shortness Of Breath Folic Acid (Folic Acid 1 Mg Tab) 1 mg PO QDAY [facility] Last Admin: 12/06/20 12:19 Dose: 1 mg Documented by: Furosemide (Furosemide 20 Mg/2 Ml Inj) 20 mg IV 0600,1800 [facility] Last Admin: 12/06/20 12:20 Dose: 20 mg Documented by: Hydromorphone HCl (Hydromorphone 1 Mg/1 Ml Inj) 0.5 mg IV Q12H PRN PRN Reason: Pain , Severe (7-10) Last Admin: 12/05/20 22:48 Dose: 0.5 mg Documented by: Folic Acid 1 mg/ Multivitamins /Minerals 10 ml/ Thiamine HCl 100 mg/ Sodium Chloride 1,000 mls @ 125 mls/hr IV .BY DURATION [facility] Last Admin: 12/05/20 19:40 Dose: 125 mls/hr Documented by: Sodium Chloride (Nacl 0.9% 1000 Ml) 1,000 mls @ 125 mls/hr IV .BY DURATION [facility] Last Admin: 12/06/20 09:20 Dose: 125 mls/hr Documented by: Amiodarone HCl 900 mg/ (Dextrose) 500 mls @ 33.333 mls/hr IV DIRECT [facility]; Protocol Ibuprofen (Ibuprofen 600 Mg Tab) 600 mg PO Q6H PRN PRN Reason: Pain, Mild (1-3) Lorazepam (Lorazepam 2 Mg/Ml Vial) 2 mg IV Q1HR PRN PRN Reason: CIWA-Ar 8-15 Morphine Sulfate (Morphine 2 Mg/1 Ml Inj) 1 mg IV Q8H PRN PRN Reason: Pain, Moderate (4-6) Last Admin: 12/06/20 07:00 Dose: 1 mg Documented by: Multivitamins (Multivitamins ,Therapeutic Tab) 1 each PO QDAY [facility] Last Admin: 12/06/20 12:19 Dose: 1 each Documented by: Ondansetron HCl (Ondansetron 4 Mg/2 Ml Inj) 4 mg IV Q8H PRN PRN Reason: Nausea And Vomiting Sodium Chloride (Sodium Chloride 0.9% 10 Ml Flush Syringe) 10 ml IV BID [facility] Last Admin: 12/06/20 12:19 Dose: 10 ml Documented by: Sodium Chloride (Sodium Chloride 0.9% 10 Ml Flush Syringe) 10 ml IV PRN PRN PRN Reason: LINE FLUSH Sodium Chloride (Sodium Chloride 1 Gm Tab) 1 gm PO BID [facility] Stop: 12/06/20 17:59 Last Admin: 12/06/20 12:19 Dose: 1 gm Documented by: Thiamine HCl (Thiamine 100 Mg Tab) 100 mg PO QDAY [facility] Last Admin: 12/06/20 12:19 Dose: 100 mg Documented by: Review of Systems - Review of Systems All systems: negative (10 Systems reviewed and negative except as mentioned above in the history of present illness) Exam - Constitutional Vital Signs: Temp Pulse Resp BP Pulse Ox 132 H 28 H 112/84 99 12/06/20 11:31 12/06/20 11:31 12/06/20 11:31 12/06/20 11:01 General appearance: obese - EENT Eyes: scleral icterus - Neck Neck: supple - Respiratory Respiratory effort: normal - Cardiovascular Rhythm: other (Tachycardic) - Gastrointestinal General gastrointestinal: Present: soft, non-tender - Integumentary Integumentary: Present: dry - Musculoskeletal Musculoskeletal: normal - Neurologic Neurological: strength equal bilaterally - Psychiatric Psychiatric: appropriate mood/affect - Labs CBC & Chem 7: 12/05/20 14:14 12/06/20 10:01 Lab Results: Laboratory Results - last 24 hr 12/05/20 12/05/20 12/05/20 14:14 14:14 14:14 WBC 11.6 H RBC 3.25 L Hgb 9.6 L Hct 30.0 L MCV 93 MCH 30 MCHC 32 RDW 23.5 H Plt Count 267 Add Manual Diff Complete Total Counted 100 Seg Neuts % (Manual) 90.0 H Band Neutrophils % 3.0 Lymphocytes % (Manual) 4.0 L Monocytes % (Manual) 2.0 Eosinophils % (Manual) 1.0 Nucleated RBC % Not Reportable Seg Neutrophils # Man 10.4 H Band Neutrophils # 0.3 Lymphocytes # (Manual) 0.5 L Abs React Lymphs (Man) 0.0 Monocytes # (Manual) 0.2 Eosinophils # (Manual) 0.1 Basophils # (Manual) 0.0 Metamyelocytes # 0.0 Myelocytes # 0.0 Promyelocytes # 0.0 Blast Cells # 0.0 WBC Morphology Not Reportable Hypersegmented Neuts Not Reportable Hyposegmented Neuts Not Reportable Hypogranular Neuts Not Reportable Smudge Cells Not Reportable Toxic Granulation Not Reportable Toxic Vacuolation Not Reportable Dohle Bodies Not Reportable Pelger-Huet Anomaly Not Reportable Tamiko Rods Not Reportable Platelet Estimate Consistent w auto Clumped Platelets Not Reportable Plt Clumps, EDTA Not Reportable Large Platelets Not Reportable Giant Platelets Not Reportable Platelet Satelliting Not Reportable Plt Morphology Comment Not Reportable RBC Morphology Not Reportable Dimorphic RBCs Not Reportable Polychromasia Not Reportable Hypochromasia Few Poikilocytosis Not Reportable Anisocytosis 1+ Microcytosis Not Reportable Macrocytosis 1+ Spherocytes Not Reportable Pappenheimer Bodies Not Reportable Sickle Cells Not Reportable Target Cells 2+ Tear Drop Cells Not Reportable Ovalocytes Not Reportable Helmet Cells Not Reportable Guillen-Dunlevy Bodies Not Reportable [place] Rings Not Reportable [place] Cells Not Reportable Bite Cells Not Reportable Crenated Cell Not Reportable Elliptocytes Not Reportable Acanthocytes (Spur) Not Reportable Rouleaux Not Reportable Hemoglobin C Crystals Not Reportable Schistocytes Not Reportable Malaria parasites Not Reportable Parrish Bodies Not Reportable Hem Pathologist Commnt No PT 18.6 H INR 1.50 H APTT 31.8 Sodium 110 L* Potassium 4.8 Chloride 79.6 L Carbon Dioxide 19 L Anion Gap 16 BUN 13 Creatinine < 0.2 L Estimated GFR > 60 BUN/Creatinine Ratio 65 Glucose 105 H Calcium 7.7 L Phosphorus Magnesium Total Bilirubin 14.50 H Direct Bilirubin Indirect Bilirubin AST 64 H ALT 55 Alkaline Phosphatase 238 H Troponin T < 0.010 Total Protein 5.8 L Albumin 3.0 L Albumin/Globulin Ratio 1.1 Plasma/Serum Alcohol 12/05/20 12/05/20 12/05/20 14:14 14:14 16:05 WBC RBC Hgb Hct MCV MCH MCHC RDW Plt Count Add Manual Diff Total Counted Seg Neuts % (Manual) Band Neutrophils % Lymphocytes % (Manual) Monocytes % (Manual) Eosinophils % (Manual) Nucleated RBC % Seg Neutrophils # Man Band Neutrophils # Lymphocytes # (Manual) Abs React Lymphs (Man) Monocytes # (Manual) Eosinophils # (Manual) Basophils # (Manual) Metamyelocytes # Myelocytes # Promyelocytes # Blast Cells # WBC Morphology Hypersegmented Neuts Hyposegmented Neuts Hypogranular Neuts Smudge Cells Toxic Granulation Toxic Vacuolation Dohle Bodies Pelger-Huet Anomaly Tamiko Rods Platelet Estimate Clumped Platelets Plt Clumps, EDTA Large Platelets Giant Platelets Platelet Satelliting Plt Morphology Comment RBC Morphology Dimorphic RBCs Polychromasia Hypochromasia Poikilocytosis Anisocytosis Microcytosis Macrocytosis Spherocytes Pappenheimer Bodies Sickle Cells Target Cells Tear Drop Cells Ovalocytes Helmet Cells Guillen-Dunlevy Bodies Melissa Rings Bernardo Cells Bite Cells Crenated Cell Elliptocytes Acanthocytes (Spur) Rouleaux Hemoglobin C Crystals Schistocytes Malaria parasites Parrish Bodies Hem Pathologist Commnt PT INR APTT Sodium Potassium Chloride Carbon Dioxide Anion Gap BUN Creatinine Estimated GFR BUN/Creatinine Ratio Glucose Calcium Phosphorus Magnesium 1.60 L Total Bilirubin 15.00 H Direct Bilirubin 10.4 H Indirect Bilirubin 4.6 AST ALT Alkaline Phosphatase Troponin T Total Protein Albumin Albumin/Globulin Ratio Plasma/Serum Alcohol < 0.01 12/06/20 12/06/20 12/06/20 04:32 10:01 10:01 WBC RBC Hgb Hct MCV MCH MCHC RDW Plt Count Add Manual Diff Total Counted Seg Neuts % (Manual) Band Neutrophils % Lymphocytes % (Manual) Monocytes % (Manual) Eosinophils % (Manual) Nucleated RBC % Seg Neutrophils # Man Band Neutrophils # Lymphocytes # (Manual) Abs React Lymphs (Man) Monocytes # (Manual) Eosinophils # (Manual) Basophils # (Manual) Metamyelocytes # Myelocytes # Promyelocytes # Blast Cells # WBC Morphology Hypersegmented Neuts Hyposegmented Neuts Hypogranular Neuts Smudge Cells Toxic Granulation Toxic Vacuolation Dohle Bodies Pelger-Huet Anomaly Tamiko Rods Platelet Estimate Clumped Platelets Plt Clumps, EDTA Large Platelets Giant Platelets Platelet Satelliting Plt Morphology Comment RBC Morphology Dimorphic RBCs Polychromasia Hypochromasia Poikilocytosis Anisocytosis Microcytosis Macrocytosis Spherocytes Pappenheimer Bodies Sickle Cells Target Cells Tear Drop Cells Ovalocytes Helmet Cells Guillen-Dunlevy Bodies Melissa Rings Bernardo Cells Bite Cells Crenated Cell Elliptocytes Acanthocytes (Spur) Rouleaux Hemoglobin C Crystals Schistocytes Malaria parasites Parrish Bodies Hem Pathologist Commnt PT INR APTT Sodium 114 L* 114 L* Potassium 4.6 5.2 H Chloride 84.2 L 84.0 L Carbon Dioxide 21 L 22 Anion Gap 13 12 BUN 12 12 Creatinine < 0.2 L < 0.2 L Estimated GFR > 60 > 60 BUN/Creatinine Ratio 60 60 Glucose 105 H 100 Calcium 6.9 L 7.8 L Phosphorus 2.50 Magnesium 1.90 Total Bilirubin Direct Bilirubin Indirect Bilirubin AST ALT Alkaline Phosphatase Troponin T < 0.010 Total Protein Albumin Albumin/Globulin Ratio Plasma/Serum Alcohol Assessment and Plan Suspect acute on chronic alcoholic liver disease based upon pattern of liver injury patient does have an elevated meld score generally would recommend starting steroids. However given uncertainty regarding volume of alcohol consumption will order further testing hepatitis panel etc. and make a decision regarding initiation of steroids based upon those results. Additionally, outpatient follow-up does appear to be an issue so it is unclear that the benefits would outweigh the risks of initiating steroids - Patient Problems (1) Jaundice Current Visit: Yes Status: Acute (2) Hyponatremia Current Visit: Yes Status: Acute (3) Alcohol dependence Current Visit: Yes Status: Chronic
[2020-12-06] MEDS: AMIODARONE 900 MG in DEXTROSE 5% IN WATER 482 ML IV SCH ×2 (12:32→15:26)
[2020-12-06 13:38] LABS: Osmolality,Urine 573 Mosm/kg
[2020-12-06 13:59] LABS: INR 1.54 (0.87-1.13)
[2020-12-06] MEDS ORDERED: THIAMINE 100 MG, FOLIC ACID 1 MG, MULTIPLE VITAMIN INJ, ADULT 10 ML in SODIUM CHLORIDE ... IV ONE (14:00)
[2020-12-06 14:01] LABS: Albumin 3.1 g/dL (3.9-5)
[2020-12-06 14:20] LABS: Bilirubin,Direct 11.8 mg/dL (0-0.2)
[2020-12-06 17:11] LABS: Blood Urea Nitrogen 14 mg/dL (9-20); Calcium 7.6 mg/dL (8.4-10.2); Hemolysis Index 2
[2020-12-06 17:17] LABS: BUN/Creatinine Ratio 70
[2020-12-06] MEDS: HYDROmorphone 1 MG/1 ML INJ IV PRN (17:39)
[2020-12-06] MEDS: LORazepam 2 MG/ML VIAL IV PRN (19:20)
[2020-12-06 23:31] LABS: BUN/Creatinine Ratio 75; Blood Urea Nitrogen 15 mg/dL (9-20); Calcium 7.5 mg/dL (8.4-10.2); Hemolysis Index 21
[2020-12-07] MEDS: SODIUM CHLORIDE 0.9% 1000 ML 1,000 ML IV SCH (01:25)
[2020-12-07 06:00] LABS: BUN/Creatinine Ratio 80; Blood Urea Nitrogen 16 mg/dL (9-20); Calcium 7.7 mg/dL (8.4-10.2); Hemolysis Index 2
--- NOTE | 2020-12-07 10:12 | Electrocardiograph Report ---
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
--- NOTE | 2020-12-07 10:13 | Electrocardiograph Report ---
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
--- NOTE | 2020-12-07 10:15 | Electrocardiograph Report ---
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
--- NOTE | 2020-12-07 10:16 | Progress Note ---
Assessment and Plan Assessment and plan: (1) Atrial fibrillation with rapid ventricular response Current Visit: No Status: Acute Plan to address problem: EKG, telemetry monitoring, medical cardioversion in the emergency department. Supportive care, cardiology team consulted. (2) Alcoholic liver disease Current Visit: Yes Status: Acute Plan to address problem: CIWA protocol, fractionated bilirubin, CT scan abdomen and pelvis has been ordered and is pending at time of admission to evaluate for hepatobiliary obstruction GI consulted (3) Hyponatremia Current Visit: No Status: Acute Plan to address problem: IV fluid resuscitation therapy, BMP, repeat BMP in a.m. monitor fluid balance, (4) DVT prophylaxis Current Visit: Yes Status: Acute Plan to address problem: SCD to bilateral lower extremities while in bed, patient is ambulatory 12/06/20 Patient with atrial fibrillation with RVR, severe hyponatremia, alcoholic liver disease. Consulted Cardiology, GI and Nephrology. Started on Amiodarone, iv fluids, Thiamine Sodium 114 12/07/20 Patient with atrial fibrillation with RVR, severe hyponatremia, alcoholic liver disease. Cardiology, GI and Nephrology following. Started on Amiodarone, iv fluids, Thiamine Sodium 117 today, slight increased History Interval history: shortness of breath palpitations Hospitalist Physical - Physical exam Narrative exam: Gen:Not in acute distress, lying in bed,jaundiced HEENT:Normocephalic, atraumatic Neck:supple, no JVD Lungs: Bilateral crackles, no wheeze Heart:S1 and S2 reg, no murmurs, rubs or gallop Abd:Soft, non tender, non distended, normal bowel sounds Ext: Bilateral marked pitting edema. no clubbing, no cyanosis Neuro:Awake, alert, oriented X 3, moves all extremities - Constitutional Vitals: Temp Pulse Resp BP Pulse Ox 97.4 F L 63 20 101/78 92 12/07/20 08:03 12/07/20 08:03 12/07/20 08:03 12/07/20 08:03 12/07/20 08:03 General appearance: Present: no acute distress HEART Score - HEART Score Troponin: Troponin T < 0.010 ng/mL (0.00-0.029) 12/07/20 04:51 Results - Labs CBC & Chem 7: 12/05/20 14:14 12/07/20 04:51 Labs: Laboratory Last Values WBC 11.6 K/mm3 (4.5-11.0) H 12/05/20 14:14 RBC 3.25 M/mm3 (3.65-5.03) L 12/05/20 14:14 Hgb 9.6 gm/dl (11.8-15.2) L 12/05/20 14:14 Hct 30.0 % (35.5-45.6) L 12/05/20 14:14 MCV 93 fl (84-94) 12/05/20 14:14 MCH 30 pg (28-32) 12/05/20 14:14 MCHC 32 % (32-34) 12/05/20 14:14 RDW 23.5 % (13.2-15.2) H 12/05/20 14:14 Plt Count 267 K/mm3 (140-440) 12/05/20 14:14 Add Manual Diff Complete 12/05/20 14:14 Total Counted 100 12/05/20 14:14 Seg Neuts % (Manual) 90.0 % (40.0-70.0) H 12/05/20 14:14 Band Neutrophils % 3.0 % 12/05/20 14:14 Lymphocytes % (Manual) 4.0 % (13.4-35.0) L 12/05/20 14:14 Monocytes % (Manual) 2.0 % (0.0-7.3) 12/05/20 14:14 Eosinophils % (Manual) 1.0 % (0.0-4.3) 12/05/20 14:14 Nucleated RBC % Not Reportable 12/05/20 14:14 Seg Neutrophils # Man 10.4 K/mm3 (1.8-7.7) H 12/05/20 14:14 Band Neutrophils # 0.3 K/mm3 12/05/20 14:14 Lymphocytes # (Manual) 0.5 K/mm3 (1.2-5.4) L 12/05/20 14:14 Abs React Lymphs (Man) 0.0 K/mm3 12/05/20 14:14 Monocytes # (Manual) 0.2 K/mm3 (0.0-0.8) 12/05/20 14:14 Eosinophils # (Manual) 0.1 K/mm3 (0.0-0.4) 12/05/20 14:14 Basophils # (Manual) 0.0 K/mm3 (0.0-0.1) 12/05/20 14:14 Metamyelocytes # 0.0 K/mm3 12/05/20 14:14 Myelocytes # 0.0 K/mm3 12/05/20 14:14 Promyelocytes # 0.0 K/mm3 12/05/20 14:14 Blast Cells # 0.0 K/mm3 12/05/20 14:14 WBC Morphology Not Reportable 12/05/20 14:14 Hypersegmented Neuts Not Reportable 12/05/20 14:14 Hyposegmented Neuts Not Reportable 12/05/20 14:14 Hypogranular Neuts Not Reportable 12/05/20 14:14 Smudge Cells Not Reportable 12/05/20 14:14 Toxic Granulation Not Reportable 12/05/20 14:14 Toxic Vacuolation Not Reportable 12/05/20 14:14 Dohle Bodies Not Reportable 12/05/20 14:14 Pelger-Huet Anomaly Not Reportable 12/05/20 14:14 Tamiko Rods Not Reportable 12/05/20 14:14 Platelet Estimate Consistent w auto 12/05/20 14:14 Clumped Platelets Not Reportable 12/05/20 14:14 Plt Clumps, EDTA Not Reportable 12/05/20 14:14 Large Platelets Not Reportable 12/05/20 14:14 Giant Platelets Not Reportable 12/05/20 14:14 Platelet Satelliting Not Reportable 12/05/20 14:14 Plt Morphology Comment Not Reportable 12/05/20 14:14 RBC Morphology Not Reportable 12/05/20 14:14 Dimorphic RBCs Not Reportable 12/05/20 14:14 Polychromasia Not Reportable 12/05/20 14:14 Hypochromasia Few 12/05/20 14:14 Poikilocytosis Not Reportable 12/05/20 14:14 Anisocytosis 1+ 12/05/20 14:14 Microcytosis Not Reportable 12/05/20 14:14 Macrocytosis 1+ 12/05/20 14:14 Spherocytes Not Reportable 12/05/20 14:14 Pappenheimer Bodies Not Reportable 12/05/20 14:14 Sickle Cells Not Reportable 12/05/20 14:14 Target Cells 2+ 12/05/20 14:14 Tear Drop Cells Not Reportable 12/05/20 14:14 Ovalocytes Not Reportable 12/05/20 14:14 Helmet Cells Not Reportable 12/05/20 14:14 [place] Bodies Not Reportable 12/05/20 14:14 [place] Rings Not Reportable 12/05/20 14:14 [place] Cells Not Reportable 12/05/20 14:14 Bite Cells Not Reportable 12/05/20 14:14 Crenated Cell Not Reportable 12/05/20 14:14 Elliptocytes Not Reportable 12/05/20 14:14 Acanthocytes (Spur) Not Reportable 12/05/20 14:14 Rouleaux Not Reportable 12/05/20 14:14 Hemoglobin C Crystals Not Reportable 12/05/20 14:14 Schistocytes Not Reportable 12/05/20 14:14 Malaria parasites Not Reportable 12/05/20 14:14 Parrish Bodies Not Reportable 12/05/20 14:14 Hem Pathologist Commnt No 12/05/20 14:14 PT 19.0 Sec. (12.2-14.9) H 12/06/20 13:18 INR 1.54 (0.87-1.13) H 12/06/20 13:18 APTT 31.8 Sec. (24.2-36.6) 12/05/20 14:14 Sodium 117 mmol/L (137-145) L* 12/07/20 04:51 Potassium 4.4 mmol/L (3.6-5.0) 12/07/20 04:51 Chloride 87.5 mmol/L (98-107) L 12/07/20 04:51 Carbon Dioxide 17 mmol/L (22-30) L 12/07/20 04:51 Anion Gap 17 mmol/L 12/07/20 04:51 BUN 16 mg/dL (9-20) 12/07/20 04:51 Creatinine < 0.2 mg/dL (0.8-1.3) L 12/07/20 04:51 Estimated GFR > 60 ml/min 12/07/20 04:51 BUN/Creatinine Ratio 80 % 12/07/20 04:51 Glucose 115 mg/dL (75-100) H 12/07/20 04:51 Calcium 7.7 mg/dL (8.4-10.2) L 12/07/20 04:51 Phosphorus 2.50 mg/dL (2.5-4.5) 12/06/20 10:01 Magnesium 1.90 mg/dL (1.7-2.3) 12/07/20 04:51 Iron 61 ug/dL (49-181) 12/06/20 13:18 TIBC 326 mcg/dL (250-450) 12/06/20 13:18 Total Bilirubin 17.50 mg/dL (0.1-1.2) H 12/06/20 13:18 Direct Bilirubin 11.8 mg/dL (0-0.2) H 12/06/20 13:18 Indirect Bilirubin 5.7 mg/dL 12/06/20 13:18 AST 70 units/L (5-40) H 12/06/20 13:18 ALT 52 units/L (7-56) 12/06/20 13:18 Alkaline Phosphatase 232 units/L (35-129) H 12/06/20 13:18 Troponin T < 0.010 ng/mL (0.00-0.029) 12/07/20 04:51 Total Protein 6.1 g/dL (6.3-8.2) L 12/06/20 13:18 Albumin 3.1 g/dL (3.9-5) L 12/06/20 13:18 Albumin/Globulin Ratio 1.0 % 12/06/20 13:18 Urine Osmolality 573 Mosm/kg 12/06/20 Unknown Urine Sodium 10 mmol/L 12/06/20 Unknown Plasma/Serum Alcohol < 0.01 % (0-0.07) 12/05/20 14:14 Hep Bs Antigen Nonreactive (Negative) 12/06/20 13:18 Hepatitis C Antibody Non-reactive (NonReactive) 12/06/20 13:18 Gaffney/IV: Voiding Method Toilet Active Medications - Current Medications Current Medications: Generic Name Dose Route Start Last Admin Trade Name Freq PRN Reason Stop Dose Admin Albuterol 2.5 mg 12/05/20 17:11 Albuterol 2.5 Mg/3 Ml Nebu IH Q4HRT PRN Shortness Of Breath Folic Acid 1 mg 12/06/20 10:00 12/06/20 12:19 Folic Acid 1 Mg Tab PO 1 mg QDAY WESLEY Administration Hydromorphone HCl 0.5 mg 12/05/20 17:11 12/06/20 17:39 Hydromorphone 1 Mg/1 Ml Inj IV 0.5 mg Q12H PRN Administration Pain , Severe (7-10) Amiodarone HCl 900 mg/ 500 mls @ 33.333 mls/hr 12/06/20 12:00 12/06/20 18:35 Dextrose IV 0.5 mg/min DIRECT WESLEY 16.667 mls/hr Titration Protocol 1 MG/MIN Sodium Chloride 1,000 mls @ 125 mls/hr 12/06/20 13:30 12/07/20 01:25 Nacl 0.9% 1000 Ml IV 125 mls/hr DIRECT WESLEY Administration Ibuprofen 600 mg 12/05/20 17:11 Ibuprofen 600 Mg Tab PO Q6H PRN Pain, Mild (1-3) Lorazepam 2 mg 12/05/20 17:13 12/06/20 19:20 Lorazepam 2 Mg/Ml Vial IV 2 mg Q1HR PRN Administration [facility]15 Morphine Sulfate 1 mg 12/05/20 17:11 12/06/20 15:27 Morphine 2 Mg/1 Ml Inj IV 1 mg Q8H PRN Administration Pain, Moderate (4-6) Multivitamins 1 each 12/06/20 10:00 12/06/20 12:19 Multivitamins ,Therapeutic Tab PO 1 each QDAY WESLEY Administration Ondansetron HCl 4 mg 12/05/20 17:11 Ondansetron 4 Mg/2 Ml Inj IV Q8H PRN Nausea And Vomiting Sodium Chloride 10 ml 12/05/20 22:00 12/06/20 23:19 Sodium Chloride 0.9% 10 Ml Flush Syringe IV 10 ml BID WESLEY Administration Sodium Chloride 10 ml 12/05/20 17:11 Sodium Chloride 0.9% 10 Ml Flush Syringe IV PRN PRN LINE FLUSH Thiamine HCl 100 mg 12/06/20 10:00 12/06/20 12:19 Thiamine 100 Mg Tab PO 100 mg QDAY WESLEY Administration
[2020-12-07 10:38] LABS: Albumin 3.1 g/dL (3.9-5)
[2020-12-07 10:49] LABS: Bilirubin,Direct 13.1 mg/dL (0-0.2)
--- NOTE | 2020-12-07 12:37 | Progress Note ---
Assessment and Plan HFrEF Dilated cardiomyopathy Chest pain, intermittent * Patient is currently chest pain-free. Twelve-lead reviewed shows atrial fibrillation with no acute ischemic changes. Troponin is negative x1. Repeat troponin is pending. We will continue to trend cardiac enzymes * Echo 12/06/2020-EF 10 to 15% left ventricular diastolic function is indeterminate, right ventricle is mild to moderately dilated, right ventricle is severely hypokinetic, left atrium is severely dilated, mild pulmonary hypertension, mild tricuspid regurgitation, IVC is dilated IVC collapses with >50% inspiration. * Hold MACHELLE/ARB in setting of soft BP A. fib RVR * Patient afib 100s-110s on monitor * Continue amiodarone drip. Titrate to heart rate less than 100 bpm * No beta-blockers at this time due to soft blood pressure * Recommend starting Eliquis once liver status stable. Hyponatremia/hypomagnesemia * Currently being repleted. Management per primary team * 3+ bilateral lower extremity edema noted. No rales or shortness of breath noted. We will plan to optimize volume control once hyponatremia is resolved. [facility] protocol for alcohol dependence * Management per primary team Amio gtt. Volume optimization once hyponatremia corrected. Will continue to follow. This patient was seen in conjunction with Dr Dai who agrees with this assessment plan of care - Patient Problems (1) HFrEF (heart failure with reduced ejection fraction) Current Visit: Yes Status: Acute (2) Dilated cardiomyopathy Current Visit: Yes Status: Acute (3) Atrial fibrillation with RVR Current Visit: Yes Status: Acute (4) Chest pain Current Visit: Yes Status: Acute (5) Hypomagnesemia Current Visit: Yes Status: Acute (6) Hyponatremia Current Visit: Yes Status: Acute (7) Jaundice Current Visit: Yes Status: Acute (8) Alcohol dependence Current Visit: Yes Status: Chronic (9) Alcoholic liver disease Current Visit: Yes Status: Chronic Subjective Date of service: 12/07/20 Principal diagnosis: HFrEF, Afib w/RVR, Alcoholic liver disease Interval history: Patient in bed reports no chest pain Afib 100s-110s on monitor Objective Last Vital Signs Temp 97.4 F L 12/07/20 08:03 Pulse 63 12/07/20 08:03 Resp 20 12/07/20 08:03 BP 101/78 12/07/20 08:03 Pulse Ox 92 12/07/20 10:35 - Physical Examination General: No Apparent Distress HEENT: Positive: PERRL, Normocephaly, Mucus Membranes Moist Neck: Positive: neck supple Cardiac: Positive: irregularly irregular Lungs: Positive: Decreased Breath Sounds Neuro: Positive: Grossly Intact Abdomen: Positive: Soft, Active Bowel Sounds Skin: Negative: Rash, Wound Musculoskeletal: No Fluid Collection, No Pain, Normal Range of Motion Extremities: Present: upper extr. pulses, lower extr. pulses, +3 Edema - Labs and Meds Cardiac Enzymes 12/06/20 12/07/20 Range/Units 13:18 04:51 AST 70 H 69 H (5-40) units/L Coagulation 12/06/20 Range/Units 13:18 PT 19.0 H (12.2-14.9) Sec. INR 1.54 H (0.87-1.13) Comprehensive Metabolic Panel 12/06/20 12/06/20 12/06/20 Range/Units 13:18 16:19 22:51 Sodium 116 L* 116 L* (137-145) mmol/L Potassium 4.4 4.7 (3.6-5.0) mmol/L Chloride 84.8 L 86.0 L (98-107) mmol/L Carbon Dioxide 19 L 16 L (22-30) mmol/L BUN 14 15 (9-20) mg/dL Creatinine < 0.2 L < 0.2 L (0.8-1.3) mg/dL Glucose 119 H 118 H (75-100) mg/dL Calcium 7.6 L 7.5 L (8.4-10.2) mg/dL Direct Bilirubin 11.8 H (0-0.2) mg/dL Indirect Bilirubin 5.7 mg/dL AST 70 H (5-40) units/L ALT 52 (7-56) units/L Alkaline Phosphatase 232 H (35-129) units/L Total Protein 6.1 L (6.3-8.2) g/dL Albumin 3.1 L (3.9-5) g/dL 12/07/20 12/07/20 Range/Units 04:51 04:51 Sodium 117 L* (137-145) mmol/L Potassium 4.4 (3.6-5.0) mmol/L Chloride 87.5 L (98-107) mmol/L Carbon Dioxide 17 L (22-30) mmol/L BUN 16 (9-20) mg/dL Creatinine < 0.2 L (0.8-1.3) mg/dL Glucose 115 H (75-100) mg/dL Calcium 7.7 L (8.4-10.2) mg/dL Direct Bilirubin 13.1 H (0-0.2) mg/dL Indirect Bilirubin 6.1 mg/dL AST 69 H (5-40) units/L ALT 53 (7-56) units/L Alkaline Phosphatase 229 H (35-129) units/L Total Protein 5.7 L (6.3-8.2) g/dL Albumin 3.1 L (3.9-5) g/dL - Imaging and Cardiology EKG: report reviewed, image reviewed Echo: report reviewed - Telemetry EKG Rhythm: Atrial Fibrillation - EKG Supraventricular dysrhythmia: atrial fibrillation
--- NOTE | 2020-12-07 12:49 | Gastroenterology Progress Note ---
Assessment and Plan 50 yo male admitted for anasarca, afib with RVR, and severe hyponatremia. # Elevated liver enzymes # Ascites # Jaundice - possible acute on chronic liver disease 2/2 alcohol complicated with hyponatremia, afib with RVR, and anasarca. - noted to have CHF with EF 10-15 % on TTE - Na slowly increasing at 117 today. - cardiology and nephrology on board. - currently on amiodarone drip for afib. - Hep B/C negative. Rec - recommend diagnostic paracentesis. Avoid therapeutic paracentesis given borderline BP. - recommend IV albumin - could consider steroid for acute alcoholic hepatitis but it's unclear any significant recent alcohol intake and unclear if reliable outpatient follow up. - monitor LFTs and INR. currently normal mental status. - would need volume diuresis. Would defer to cardiology and nephrology. - will follow. - Patient Problems (1) Transaminitis Current Visit: Yes Status: Acute (2) Alcoholic liver disease Current Visit: Yes Status: Chronic Subjective Date of service: 12/07/20 Principal diagnosis: HFrEF, Afib w/RVR, Alcoholic liver disease Interval history: Patient complains of chest pain and leg swelling. No abdominal pain, nausea/vomiting. Objective - Constitutional Vitals: Temp Pulse Resp BP Pulse Ox 98.1 F 113 H 20 97/70 96 12/07/20 11:17 12/07/20 11:17 12/07/20 11:17 12/07/20 11:17 12/07/20 11:17 General appearance: no acute distress - EENT Eyes: EOM intact, scleral icterus ENT: hearing intact - Respiratory Respiratory: bilateral: diminished - Cardiovascular Rhythm: irregularly irregular Heart Sounds: Present: S1 & S2 - Gastrointestinal General gastrointestinal: Present: soft, non-tender, distended, normal bowel sounds - Integumentary Integumentary: Present: jaundice - Psychiatric Psychiatric: appropriate mood/affect - Labs CBC & Chem 7: 12/05/20 14:14 12/07/20 04:51 Labs: Laboratory Results - last 24 hr 12/06/20 12/06/20 12/06/20 13:18 13:18 13:18 PT INR Sodium Potassium Chloride Carbon Dioxide Anion Gap BUN Creatinine Estimated GFR BUN/Creatinine Ratio Glucose Calcium Magnesium Iron 61 TIBC 326 Total Bilirubin 17.50 H Direct Bilirubin 11.8 H Indirect Bilirubin 5.7 AST 70 H ALT 52 Alkaline Phosphatase 232 H Troponin T Total Protein 6.1 L Albumin 3.1 L Albumin/Globulin Ratio 1.0 Urine Osmolality Urine Sodium Hep Bs Antigen Nonreactive Hepatitis C Antibody Non-reactive 12/06/20 12/06/20 12/06/20 13:18 16:19 22:51 PT 19.0 H INR 1.54 H Sodium 116 L* 116 L* Potassium 4.4 4.7 Chloride 84.8 L 86.0 L Carbon Dioxide 19 L 16 L Anion Gap 17 19 BUN 14 15 Creatinine < 0.2 L < 0.2 L Estimated GFR > 60 > 60 BUN/Creatinine Ratio 70 75 Glucose 119 H 118 H Calcium 7.6 L 7.5 L Magnesium Iron TIBC Total Bilirubin Direct Bilirubin Indirect Bilirubin AST ALT Alkaline Phosphatase Troponin T Total Protein Albumin Albumin/Globulin Ratio Urine Osmolality Urine Sodium Hep Bs Antigen Hepatitis C Antibody 12/06/20 12/07/20 12/07/20 Unknown 04:51 04:51 PT INR Sodium 117 L* Potassium 4.4 Chloride 87.5 L Carbon Dioxide 17 L Anion Gap 17 BUN 16 Creatinine < 0.2 L Estimated GFR > 60 BUN/Creatinine Ratio 80 Glucose 115 H Calcium 7.7 L Magnesium 1.90 Iron TIBC Total Bilirubin 19.20 H Direct Bilirubin 13.1 H Indirect Bilirubin 6.1 AST 69 H ALT 53 Alkaline Phosphatase 229 H Troponin T < 0.010 Total Protein 5.7 L Albumin 3.1 L Albumin/Globulin Ratio 1.2 Urine Osmolality 573 Urine Sodium 10 Hep Bs Antigen Hepatitis C Antibody
[2020-12-07] MEDS: FOLIC ACID 1 MG TAB PO SCH (12:58)
[2020-12-07] MEDS: THIAMINE 100 MG TAB PO SCH (12:58)
[2020-12-07] MEDS: MULTIVITAMINS ,THERAPEUTIC TAB PO SCH (12:59)
--- NOTE | 2020-12-07 15:22 | Progress Note ---
Assessment and Plan # Hyponatremia: suspect due to alcohol abuse, decreased po intake and potential "beer drinking potomania" phenomenon. Certainly may also have hypervolemic hyponatremia in setting of liver disease, but suspect acutely worsened with alcohol abuse - agree with ongoing IVF, appropriate correction so far with sodium 110->117 after 24 hours, continue current course as tolerated - recommend q6-8 hour sodium/BMP checks - agree with banana bag, magnesium repletion - reviewed urine osm, na; less clinically helpful as he is already on IVF - defer TSH, cortisol at this time given clinical history - no indication for hypertonic saline as he is mentating appropriately, no seizures, etc # A-fib with RVR: suspect due to alcohol intake, appreciate cardiology. S/p amio bolus, echo reviewed and note low EF # CIWA protocol for alcohol withdrawal concern: per primary, agree with mag repletion # Transminitis/Jaundice/Hyperbilirubinemia/Hypoalbuminemia: appreciate hepa tology input; reviewed CT abd/pelvis. Given edema on exam, will likely need diuretics but would hold for now as likely intravascularly depleted and hyponatremia Subjective Date of service: 12/07/20 Principal diagnosis: HFrEF, Afib w/RVR, Alcoholic liver disease Interval history: No major changes noted, patient resting this PM Objective - Exam Narrative Exam: General appearance: well-developed, appears stated age, obese, other (jaundiced appearing, anasarca noted) EENT: ATNC, PERRL, other (icteric sclera note) Neck: Present: neck supple Respiratory: Clear to Ascultation Heart: tachycardia, S1S2 Gastrointestinal: Present: normoactive bowel sounds Integumentary: no rash, warm and dry, other (jaundice) Neurologic: no focal deficit, alert and oriented x3, CN 3-12 intact Psychiatric: mood/affect appropriate - Vital Signs Vital signs: Vital Signs - 12hr 12/07/20 12/07/20 12/07/20 06:03 08:03 10:35 Temperature 97.9 F 97.4 F L Pulse Rate 99 H 63 Respiratory 18 20 Rate Blood Pressure 101/78 Blood Pressure 103/82 [Left] O2 Sat by Pulse 92 92 92 Oximetry 12/07/20 11:17 Temperature 98.1 F Pulse Rate 113 H Respiratory 20 Rate Blood Pressure 97/70 Blood Pressure [Left] O2 Sat by Pulse 96 Oximetry - Lab 12/05/20 14:14 12/07/20 04:51 Most recent lab results Calcium 7.7 mg/dL (8.4-10.2) L 12/07/20 04:51 Phosphorus 2.50 mg/dL (2.5-4.5) 12/06/20 10:01 Magnesium 1.90 mg/dL (1.7-2.3) 12/07/20 04:51 Urine Sodium 10 mmol/L 12/06/20 Unknown Medications & Allergies - Medications Allergies/Adverse Reactions: Allergies No Known Allergies Allergy (Unverified 12/05/20 15:43) Active Medications: Generic Name Dose Route Start Last Admin Trade Name Freq PRN Reason Stop Dose Admin Albuterol 2.5 mg 12/05/20 17:11 Albuterol 2.5 Mg/3 Ml Nebu IH Q4HRT PRN Shortness Of Breath Folic Acid 1 mg 12/06/20 10:00 12/06/20 12:19 Folic Acid 1 Mg Tab PO 1 mg QDAY WESLEY Administration Hydromorphone HCl 0.5 mg 12/05/20 17:11 12/06/20 17:39 Hydromorphone 1 Mg/1 Ml Inj IV 0.5 mg Q12H PRN Administration Pain , Severe (7-10) Amiodarone HCl 900 mg/ 500 mls @ 33.333 mls/hr 12/06/20 12:00 12/06/20 18:35 Dextrose IV 0.5 mg/min DIRECT WESLEY 16.667 mls/hr Titration Protocol 1 MG/MIN Sodium Chloride 1,000 mls @ 125 mls/hr 12/06/20 13:30 12/07/20 01:25 Nacl 0.9% 1000 Ml IV 125 mls/hr DIRECT WESLEY Administration Ibuprofen 600 mg 12/05/20 17:11 Ibuprofen 600 Mg Tab PO Q6H PRN Pain, Mild (1-3) Lorazepam 2 mg 12/05/20 17:13 12/06/20 19:20 Lorazepam 2 Mg/Ml Vial IV 2 mg Q1HR PRN Administration CIWA-Ar 8-15 Morphine Sulfate 1 mg 12/05/20 17:11 12/06/20 15:27 Morphine 2 Mg/1 Ml Inj IV 1 mg Q8H PRN Administration Pain, Moderate (4-6) Multivitamins 1 each 12/06/20 10:00 12/06/20 12:19 Multivitamins ,Therapeutic Tab PO 1 each QDAY WESLEY Administration Ondansetron HCl 4 mg 12/05/20 17:11 Ondansetron 4 Mg/2 Ml Inj IV Q8H PRN Nausea And Vomiting Sodium Chloride 10 ml 12/05/20 22:00 12/06/20 23:19 Sodium Chloride 0.9% 10 Ml Flush Syringe IV 10 ml BID WESLEY Administration Sodium Chloride 10 ml 12/05/20 17:11 Sodium Chloride 0.9% 10 Ml Flush Syringe IV PRN PRN LINE FLUSH Thiamine HCl 100 mg 12/06/20 10:00 12/06/20 12:19 Thiamine 100 Mg Tab PO 100 mg QDAY WESLEY Administration
[2020-12-07] MEDS: AMIODARONE 900 MG in DEXTROSE 5% IN WATER 482 ML IV SCH (22:04)
[2020-12-08] MEDS: MORPHINE 2 MG/1 ML INJ IV PRN (01:48)
[2020-12-08] MEDS: LORazepam 2 MG/ML VIAL IV PRN ×2 (04:02→22:20)
[2020-12-08 05:01] LABS: Hematocrit 28.8 % (35.5-45.6); Hemoglobin 9.4 gm/dl (11.8-15.2); Mean Corpuscular HGB Conc 33 % (32-34); Mean Corpuscular Volume 97 fl (84-94); Platelet Count 251 K/mm3 (140-440); Red Blood Count 2.97 M/mm3 (3.65-5.03)
[2020-12-08 05:08] LABS: Red Cell Distribution Width 22.7 % (13.2-15.2)
[2020-12-08 05:11] LABS: INR 1.69 (0.87-1.13)
[2020-12-08 05:17] LABS: Alanine Aminotransferase 57 units/L (7-56); Albumin 2.8 g/dL (3.9-5); Blood Urea Nitrogen 17 mg/dL (9-20); Calcium 7.4 mg/dL (8.4-10.2); Hemolysis Index 14
[2020-12-08 05:22] LABS: BUN/Creatinine Ratio 85
[2020-12-08] MEDS: SODIUM CHLORIDE 0.9% 1000 ML 1,000 ML IV SCH (05:57)
--- NOTE | 2020-12-08 09:36 | Progress Note ---
Assessment and Plan # Hyponatremia: suspect due to alcohol abuse, decreased po intake and potential "beer drinking potomania" phenomenon. Certainly may also have hypervolemic hyponatremia in setting of liver disease, but suspect acutely worsened with alcohol abuse - sodium dropped back down to 112, was improving from 110->117 yesterday, appears to be off IVF for past day. Would restart IVF (normal saline given hypochloremia), if concerned for volume status can simultaneously provide bolus of loop diuretic such as Lasix or Bumex which should also promote greater water loss than salt loss and not worsen hyponatremia, but would need to be cautious for over-diuresis and worsening dehydration - recommend q6-8 hour sodium/BMP checks - agree with banana bag, magnesium repletion - reviewed urine osm, na; less clinically helpful as he was already on IVF - defer TSH, cortisol at this time given clinical history - no indication for hypertonic saline as he is mentating appropriately, no seiz ures, etc # A-fib with RVR: suspect due to alcohol intake, appreciate cardiology. S/p amio bolus, echo reviewed and note low EF # CIWA protocol for alcohol withdrawal concern: per primary, agree with mag repletion # Transminitis/Jaundice/Hyperbilirubinemia/Hypoalbuminemia: appreciate hepatology input; reviewed CT abd/pelvis. Given edema on exam, he is likely third spacing much fluid and is intravascularly dry still, will likely still need diuretic but would hold for now unless his respiratory status worsens Subjective Date of service: 12/08/20 Principal diagnosis: HFrEF, Afib w/RVR, Alcoholic liver disease Interval history: Awake this AM, does appear restless however Objective - Exam Narrative Exam: General appearance: well-developed, appears stated age, obese, other (jaundiced appearing, anasarca noted) EENT: ATNC, PERRL, other (icteric sclera note) Neck: Present: neck supple Respiratory: Clear to Ascultation Heart: tachycardia, S1S2 Gastrointestinal: Present: normoactive bowel sounds Integumentary: no rash, warm and dry, other (jaundice) Neurologic: no focal deficit, alert and oriented x3, CN 3-12 intact Psychiatric: mood/affect appropriate - Vital Signs Vital signs: Vital Signs - 12hr 12/07/20 12/07/20 12/08/20 22:00 23:26 00:00 Temperature 98.2 F Pulse Rate 55 L 103 H Respiratory 20 Rate Blood Pressure 112/85 O2 Sat by Pulse 97 62 L Oximetry 12/08/20 12/08/20 12/08/20 01:54 04:33 07:40 Temperature 98.0 F Pulse Rate Respiratory 18 Rate Blood Pressure 127/83 O2 Sat by Pulse 98 98 Oximetry 12/08/20 08:54 Temperature 98.1 F Pulse Rate 79 Respiratory 20 Rate Blood Pressure 112/75 O2 Sat by Pulse 92 Oximetry - Lab 12/08/20 04:10 12/08/20 04:10 Most recent lab results Calcium 7.4 mg/dL (8.4-10.2) L 12/08/20 04:10 Phosphorus 2.50 mg/dL (2.5-4.5) 12/06/20 10:01 Magnesium 1.90 mg/dL (1.7-2.3) 12/07/20 04:51 Urine Sodium 10 mmol/L 12/06/20 Unknown Medications & Allergies - Medications Allergies/Adverse Reactions: Allergies No Known Allergies Allergy (Unverified 12/05/20 15:43) Home Medications: Home Medications Medication Instructions Recorded Confirmed Last Taken Type No Known Home Medications [No 12/08/20 12/08/20 Unknown History Reported Home Medications] Active Medications: Generic Name Dose Route Start Last Admin Trade Name Freq PRN Reason Stop Dose Admin Albuterol 2.5 mg 12/05/20 17:11 Albuterol 2.5 Mg/3 Ml Nebu IH Q4HRT PRN Shortness Of Breath Folic Acid 1 mg 12/06/20 10:00 12/07/20 12:58 Folic Acid 1 Mg Tab PO 1 mg QDAY WESLEY Administration Hydromorphone HCl 0.5 mg 12/05/20 17:11 12/06/20 17:39 Hydromorphone 1 Mg/1 Ml Inj IV 0.5 mg Q12H PRN Administration Pain , Severe (7-10) Amiodarone HCl 900 mg/ 500 mls @ 33.333 mls/hr 12/06/20 12:00 12/07/20 22:04 Dextrose IV 0.5 mg/min DIRECT WESLEY 16.667 mls/hr Administration Protocol 1 MG/MIN Sodium Chloride 1,000 mls @ 75 mls/hr 12/08/20 05:45 12/08/20 05:57 Nacl 0.9% 1000 Ml IV 75 mls/hr DIRECT WESLEY Administration Ibuprofen 600 mg 12/05/20 17:11 Ibuprofen 600 Mg Tab PO Q6H PRN Pain, Mild (1-3) Lorazepam 2 mg 12/05/20 17:13 12/08/20 04:02 Lorazepam 2 Mg/Ml Vial IV 2 mg Q1HR PRN Administration [facility] 8-15 Morphine Sulfate 1 mg 12/05/20 17:11 12/08/20 01:48 Morphine 2 Mg/1 Ml Inj IV 1 mg Q8H PRN Administration Pain, Moderate (4-6) Multivitamins 1 each 12/06/20 10:00 12/07/20 12:59 Multivitamins ,Therapeutic Tab PO 1 each QDAY WESLEY Administration Ondansetron HCl 4 mg 12/05/20 17:11 Ondansetron 4 Mg/2 Ml Inj IV Q8H PRN Nausea And Vomiting Sodium Chloride 10 ml 12/05/20 22:00 12/07/20 21:20 Sodium Chloride 0.9% 10 Ml Flush Syringe IV 10 ml BID WESLEY Administration Sodium Chloride 10 ml 12/05/20 17:11 Sodium Chloride 0.9% 10 Ml Flush Syringe IV PRN PRN LINE FLUSH Thiamine HCl 100 mg 12/06/20 10:00 12/07/20 12:58 Thiamine 100 Mg Tab PO 100 mg QDAY WESLEY Administration
--- NOTE | 2020-12-08 10:07 | Progress Note ---
Assessment and Plan Assessment and plan: (1) Atrial fibrillation with rapid ventricular response Current Visit: No Status: Acute Plan to address problem: EKG, telemetry monitoring, medical cardioversion in the emergency department. Supportive care, cardiology team consulted. (2) Alcoholic liver disease Current Visit: Yes Status: Acute Plan to address problem: CIWA protocol, fractionated bilirubin, CT scan abdomen and pelvis has been ordered and is pending at time of admission to evaluate for hepatobiliary obstruction GI consulted (3) Hyponatremia Current Visit: No Status: Acute Plan to address problem: IV fluid resuscitation therapy, BMP, repeat BMP in a.m. monitor fluid balance, (4) DVT prophylaxis Current Visit: Yes Status: Acute Plan to address problem: SCD to bilateral lower extremities while in bed, patient is ambulatory Anasarca 12/06/20 Patient with atrial fibrillation with RVR, severe hyponatremia, a lcoholic liver disease. Consulted Cardiology, GI and Nephrology. Started on Amiodarone, iv fluids, Thiamine Sodium 114 12/07/20 Patient with atrial fibrillation with RVR, severe hyponatremia, alcoholi c liver disease. Cardiology, GI and Nephrology following. Started on Amiodarone, iv fluids, Thiamine Sodium 117 today, slight increased 12/08/20 Patient with atrial fibrillation with RVR, severe hyponatremia, alcoholic liver disease. Cardiology, GI and Nephrology following. On Amiodarone, iv fluids, Thiamine Sodium 112 today, worsening I discussed case with GI. She is contemplating poss starting steroids. Will order Coronavirus PCR as suggested by GI. Repeat CXR today. History Interval history: shortness of breath palpitations Generalized edema No fever Hospitalist Physical - Physical exam Narrative exam: Gen:Not in acute distress, lying in bed,jaundiced HEENT:Normocephalic, atraumatic Neck:supple, no JVD Lungs: Bilateral crackles, no wheeze Heart:S1 and S2 reg, no murmurs, rubs or gallop Abd:Soft, non tender, non distended, normal bowel sounds Ext: Bilateral marked pitting edema. no clubbing, no cyanosis Neuro:Awake, alert, oriented X 3, moves all extremities Skin:anasarca - Constitutional Vitals: Temp Pulse Resp BP Pulse Ox 98.1 F 79 20 112/75 92 12/08/20 08:54 12/08/20 08:54 12/08/20 08:54 12/08/20 08:54 12/08/20 08:54 General appearance: Present: no acute distress HEART Score - HEART Score Troponin: Troponin T < 0.010 ng/mL (0.00-0.029) 12/07/20 04:51 Results - Labs CBC & Chem 7: 12/08/20 04:10 12/08/20 04:10 Labs: Laboratory Last Values WBC 10.5 K/mm3 (4.5-11.0) 12/08/20 04:10 RBC 2.97 M/mm3 (3.65-5.03) L 12/08/20 04:10 Hgb 9.4 gm/dl (11.8-15.2) L 12/08/20 04:10 Hct 28.8 % (35.5-45.6) L 12/08/20 04:10 MCV 97 fl (84-94) H 12/08/20 04:10 MCH 32 pg (28-32) 12/08/20 04:10 MCHC 33 % (32-34) 12/08/20 04:10 RDW 22.7 % (13.2-15.2) H 12/08/20 04:10 Plt Count 251 K/mm3 (140-440) 12/08/20 04:10 Add Manual Diff Complete 12/05/20 14:14 Total Counted 100 12/05/20 14:14 Seg Neuts % (Manual) 90.0 % (40.0-70.0) H 12/05/20 14:14 Band Neutrophils % 3.0 % 12/05/20 14:14 Lymphocytes % (Manual) 4.0 % (13.4-35.0) L 12/05/20 14:14 Monocytes % (Manual) 2.0 % (0.0-7.3) 12/05/20 14:14 Eosinophils % (Manual) 1.0 % (0.0-4.3) 12/05/20 14:14 Nucleated RBC % Not Reportable 12/05/20 14:14 Seg Neutrophils # Man 10.4 K/mm3 (1.8-7.7) H 12/05/20 14:14 Band Neutrophils # 0.3 K/mm3 12/05/20 14:14 Lymphocytes # (Manual) 0.5 K/mm3 (1.2-5.4) L 12/05/20 14:14 Abs React Lymphs (Man) 0.0 K/mm3 12/05/20 14:14 Monocytes # (Manual) 0.2 K/mm3 (0.0-0.8) 12/05/20 14:14 Eosinophils # (Manual) 0.1 K/mm3 (0.0-0.4) 12/05/20 14:14 Basophils # (Manual) 0.0 K/mm3 (0.0-0.1) 12/05/20 14:14 Metamyelocytes # 0.0 K/mm3 12/05/20 14:14 Myelocytes # 0.0 K/mm3 12/05/20 14:14 Promyelocytes # 0.0 K/mm3 12/05/20 14:14 Blast Cells # 0.0 K/mm3 12/05/20 14:14 WBC Morphology Not Reportable 12/05/20 14:14 Hypersegmented Neuts Not Reportable 12/05/20 14:14 Hyposegmented Neuts Not Reportable 12/05/20 14:14 Hypogranular Neuts Not Reportable 12/05/20 14:14 Smudge Cells Not Reportable 12/05/20 14:14 Toxic Granulation Not Reportable 12/05/20 14:14 Toxic Vacuolation Not Reportable 12/05/20 14:14 Dohle Bodies Not Reportable 12/05/20 14:14 Pelger-Huet Anomaly Not Reportable 12/05/20 14:14 Tamiko Rods Not Reportable 12/05/20 14:14 Platelet Estimate Consistent w auto 12/05/20 14:14 Clumped Platelets Not Reportable 12/05/20 14:14 Plt Clumps, EDTA Not Reportable 12/05/20 14:14 Large Platelets Not Reportable 12/05/20 14:14 Giant Platelets Not Reportable 12/05/20 14:14 Platelet Satelliting Not Reportable 12/05/20 14:14 Plt Morphology Comment Not Reportable 12/05/20 14:14 RBC Morphology Not Reportable 12/05/20 14:14 Dimorphic RBCs Not Reportable 12/05/20 14:14 Polychromasia Not Reportable 12/05/20 14:14 Hypochromasia Few 12/05/20 14:14 Poikilocytosis Not Reportable 12/05/20 14:14 Anisocytosis 1+ 12/05/20 14:14 Microcytosis Not Reportable 12/05/20 14:14 Macrocytosis 1+ 12/05/20 14:14 Spherocytes Not Reportable 12/05/20 14:14 Pappenheimer Bodies Not Reportable 12/05/20 14:14 Sickle Cells Not Reportable 12/05/20 14:14 Target Cells 2+ 12/05/20 14:14 Tear Drop Cells Not Reportable 12/05/20 14:14 Ovalocytes Not Reportable 12/05/20 14:14 Helmet Cells Not Reportable 12/05/20 14:14 Guillen-Ixonia Bodies Not Reportable 12/05/20 14:14 Demarest Rings Not Reportable 12/05/20 14:14 Lyons Cells Not Reportable 12/05/20 14:14 Bite Cells Not Reportable 12/05/20 14:14 Crenated Cell Not Reportable 12/05/20 14:14 Elliptocytes Not Reportable 12/05/20 14:14 Acanthocytes (Spur) Not Reportable 12/05/20 14:14 Rouleaux Not Reportable 12/05/20 14:14 Hemoglobin C Crystals Not Reportable 12/05/20 14:14 Schistocytes Not Reportable 12/05/20 14:14 Malaria parasites Not Reportable 12/05/20 14:14 Parrish Bodies Not Reportable 12/05/20 14:14 Hem Pathologist Commnt No 12/05/20 14:14 PT 20.5 Sec. (12.2-14.9) H 12/08/20 04:10 INR 1.69 (0.87-1.13) H 12/08/20 04:10 APTT 31.8 Sec. (24.2-36.6) 12/05/20 14:14 Sodium 112 mmol/L (137-145) L* 12/08/20 04:10 Potassium 4.8 mmol/L (3.6-5.0) 12/08/20 04:10 Chloride 82.7 mmol/L (98-107) L 12/08/20 04:10 Carbon Dioxide 19 mmol/L (22-30) L 12/08/20 04:10 Anion Gap 15 mmol/L 12/08/20 04:10 BUN 17 mg/dL (9-20) 12/08/20 04:10 Creatinine < 0.2 mg/dL (0.8-1.3) L 12/08/20 04:10 Estimated GFR > 60 ml/min 12/08/20 04:10 BUN/Creatinine Ratio 85 % 12/08/20 04:10 Glucose 99 mg/dL (75-100) 12/08/20 04:10 Calcium 7.4 mg/dL (8.4-10.2) L 12/08/20 04:10 Phosphorus 2.50 mg/dL (2.5-4.5) 12/06/20 10:01 Magnesium 1.90 mg/dL (1.7-2.3) 12/07/20 04:51 Iron 61 ug/dL (49-181) 12/06/20 13:18 TIBC 326 mcg/dL (250-450) 12/06/20 13:18 Total Bilirubin 16.40 mg/dL (0.1-1.2) H 12/08/20 04:10 Direct Bilirubin 13.1 mg/dL (0-0.2) H 12/07/20 04:51 Indirect Bilirubin 6.1 mg/dL 12/07/20 04:51 AST 79 units/L (5-40) H 12/08/20 04:10 ALT 57 units/L (7-56) H 12/08/20 04:10 Alkaline Phosphatase 231 units/L (35-129) H 12/08/20 04:10 Troponin T < 0.010 ng/mL (0.00-0.029) 12/07/20 04:51 Total Protein 5.2 g/dL (6.3-8.2) L 12/08/20 04:10 Albumin 2.8 g/dL (3.9-5) L 12/08/20 04:10 Albumin/Globulin Ratio 1.2 % 12/08/20 04:10 Urine Osmolality 573 Mosm/kg 12/06/20 Unknown Urine Sodium 10 mmol/L 12/06/20 Unknown Plasma/Serum Alcohol < 0.01 % (0-0.07) 12/05/20 14:14 Hep Bs Antigen Nonreactive (Negative) 12/06/20 13:18 Hepatitis C Antibody Non-reactive (NonReactive) 12/06/20 13:18 Gaffney/IV: Voiding Method Toilet Active Medications - Current Medications Current Medications: Generic Name Dose Route Start Last Admin Trade Name Freq PRN Reason Stop Dose Admin Albuterol 2.5 mg 12/05/20 17:11 Albuterol 2.5 Mg/3 Ml Nebu IH Q4HRT PRN Shortness Of Breath Folic Acid 1 mg 12/06/20 10:00 12/07/20 12:58 Folic Acid 1 Mg Tab PO 1 mg QDAY WESELY Administration Hydromorphone HCl 0.5 mg 12/05/20 17:11 12/06/20 17:39 Hydromorphone 1 Mg/1 Ml Inj IV 0.5 mg Q12H PRN Administration Pain , Severe (7-10) Amiodarone HCl 900 mg/ 500 mls @ 33.333 mls/hr 12/06/20 12:00 12/07/20 22:04 Dextrose IV 0.5 mg/min DIRECT WESLEY 16.667 mls/hr Administration Protocol 1 MG/MIN Sodium Chloride 1,000 mls @ 75 mls/hr 12/08/20 05:45 12/08/20 05:57 Nacl 0.9% 1000 Ml IV 75 mls/hr DIRECT WESLEY Administration Ibuprofen 600 mg 12/05/20 17:11 Ibuprofen 600 Mg Tab PO Q6H PRN Pain, Mild (1-3) Lorazepam 2 mg 12/05/20 17:13 12/08/20 04:02 Lorazepam 2 Mg/Ml Vial IV 2 mg Q1HR PRN Administration [facility] 8-15 Morphine Sulfate 1 mg 12/05/20 17:11 12/08/20 01:48 Morphine 2 Mg/1 Ml Inj IV 1 mg Q8H PRN Administration Pain, Moderate (4-6) Multivitamins 1 each 12/06/20 10:00 12/07/20 12:59 Multivitamins ,Therapeutic Tab PO 1 each QDAY WESLEY Administration Ondansetron HCl 4 mg 12/05/20 17:11 Ondansetron 4 Mg/2 Ml Inj IV Q8H PRN Nausea And Vomiting Sodium Chloride 10 ml 12/05/20 22:00 12/07/20 21:20 Sodium Chloride 0.9% 10 Ml Flush Syringe IV 10 ml BID WESLEY Administration Sodium Chloride 10 ml 12/05/20 17:11 Sodium Chloride 0.9% 10 Ml Flush Syringe IV PRN PRN LINE FLUSH Thiamine HCl 100 mg 12/06/20 10:00 12/07/20 12:58 Thiamine 100 Mg Tab PO 100 mg QDAY WESLEY Administration
--- NOTE | 2020-12-08 10:24 | Gastroenterology Progress Note ---
Assessment and Plan 50 yo male admitted for anasarca, afib with RVR, and severe hyponatremia. # Elevated liver enzymes # Ascites # Jaundice - possible acute on chronic liver disease 2/2 alcohol complicated with hyponatremia, afib with RVR, and anasarca. - noted to have CHF with EF 10-15 % on TTE - Na down to 112. - cardiology and nephrology on board. - currently on amiodarone drip for afib. - Hep B/C negative. Rec - recommend diagnostic paracentesis. Avoid therapeutic paracentesis given borderline BP. Radiology available for paracentesis on Thursday. - recommend IV albumin - elevated discrimate Maddrey score at 42, recommend starting steroid with prednisolone 40 mg daily for alcoholic hepatitis. Will need to monitor for response in next few days and also ensure follow up. - rule out any infectious process. Initially CXR showing interstitial opacities, edema vs underlying infection. consider ruling out COVID as well. - monitor LFTs and INR. currently normal mental status. - would need volume diuresis. Would defer to cardiology and nephrology. - avoid hepato toxic medications. currently on amiodarone but cardiology recommending BB and digoxin in attempt to stop amiodarone given liver disease. - recommend checking cortisol, TSH for hyponaremia workup. Discussed with nephrology. - will follow. 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 Reports mild chest pain. No abdominal pain, nausea/vomiting. Per nursing, he pulled out his IV overnight. Nurse working on establishing IV access. Objective - Constitutional Vitals: Temp Pulse Resp BP Pulse Ox 98.1 F 79 20 112/75 92 12/08/20 08:54 12/08/20 08:54 12/08/20 08:54 12/08/20 08:54 12/08/20 08:54 General appearance: no acute distress - EENT Eyes: scleral icterus ENT: hearing intact - Neck Neck: supple - Respiratory Respiratory effort: labored Respiratory: bilateral: diminished - Cardiovascular Rhythm: irregularly irregular Heart Sounds: Present: S1 & S2 - Extremities Extremity abnormal: edema - Gastrointestinal General gastrointestinal: Present: soft, non-tender, distended, normal bowel sounds - Integumentary Integumentary: Present: warm - Neurologic Neurological: oriented to person, oriented to place - Labs CBC & Chem 7: 12/08/20 04:10 12/08/20 04:10 Labs: Laboratory Results - last 24 hr 12/07/20 12/08/20 12/08/20 04:51 04:10 04:10 WBC 10.5 RBC 2.97 L Hgb 9.4 L Hct 28.8 L MCV 97 H MCH 32 MCHC 33 RDW 22.7 H Plt Count 251 PT 20.5 H INR 1.69 H Sodium Potassium Chloride Carbon Dioxide Anion Gap BUN Creatinine Estimated GFR BUN/Creatinine Ratio Glucose Calcium Total Bilirubin 19.20 H Direct Bilirubin 13.1 H Indirect Bilirubin 6.1 AST 69 H ALT 53 Alkaline Phosphatase 229 H Total Protein 5.7 L Albumin 3.1 L Albumin/Globulin Ratio 1.2 12/08/20 04:10 WBC RBC Hgb Hct MCV MCH MCHC RDW Plt Count PT INR Sodium 112 L* Potassium 4.8 Chloride 82.7 L Carbon Dioxide 19 L Anion Gap 15 BUN 17 Creatinine < 0.2 L Estimated GFR > 60 BUN/Creatinine Ratio 85 Glucose 99 Calcium 7.4 L Total Bilirubin 16.40 H Direct Bilirubin Indirect Bilirubin AST 79 H ALT 57 H Alkaline Phosphatase 231 H Total Protein 5.2 L Albumin 2.8 L Albumin/Globulin Ratio 1.2
[2020-12-08] MEDS: THIAMINE 100 MG TAB PO SCH (11:01)
[2020-12-08] MEDS: MULTIVITAMINS ,THERAPEUTIC TAB PO SCH (11:01)
[2020-12-08] MEDS: FOLIC ACID 1 MG TAB PO SCH (11:01)
--- NOTE | 2020-12-08 11:31 | Progress Note ---
Assessment and Plan He has converted to sinus rhythm. Initiate low-dose metoprolol to see if he tolerates this with the hope of controlling his heart rate. Ultimately, I will probably initiate digoxin as well. The hope is not to have to use amiodarone in the long-term considering his underlying liver disease. - Patient Problems (1) Acute HFrEF (heart failure with reduced ejection fraction) Current Visit: Yes Status: Acute (2) Atrial fibrillation with RVR Current Visit: Yes Status: Acute (3) Dilated cardiomyopathy Current Visit: Yes Status: Acute (4) Right ventricular dysfunction Current Visit: Yes Status: Acute (5) Hyponatremia Current Visit: Yes Status: Acute (6) Chest pain Current Visit: Yes Status: Resolved (7) Alcoholic liver disease Current Visit: Yes Status: Chronic (8) Alcohol dependence Current Visit: Yes Status: Chronic Subjective Date of service: 12/08/20 Principal diagnosis: HFrEF, Afib w/RVR, Alcoholic liver disease, CMP Interval history: No complaint. Objective Vital Signs Temp Pulse Resp BP Pulse Ox 12/08/20 11:09 94 12/08/20 08:54 98.1 F 79 20 112/75 92 12/08/20 07:40 98 12/08/20 04:33 98.0 F 18 127/83 12/08/20 01:54 98 12/08/20 00:00 103 H 12/07/20 23:26 98.2 F 55 L 20 112/85 62 L 12/07/20 22:00 97 12/07/20 19:43 97.9 F 52 L 18 100/66 58 L 12/07/20 16:09 53 L 100 12/07/20 14:41 106 H 13 107/81 91 12/07/20 14:31 94 H 18 107/81 95 12/07/20 14:21 103 H 15 107/81 77 L 12/07/20 14:11 104 H 18 107/81 87 12/07/20 14:09 100 H 13 107/81 12/07/20 14:00 98 - Physical Examination General: No Apparent Distress HEENT: Positive: EOMI, Normocephaly, Mucus Membranes Moist Neck: Positive: neck supple, trachea midline, JVD/HJR Cardiac: Positive: Reg Rate and Rhythm, S1/S2 Lungs: Positive: clear to auscultation Neuro: Positive: Grossly Intact Abdomen: Positive: Soft, Active Bowel Sounds. Negative: Tender Skin: Positive: Clear Musculoskeletal: Normal Range of Motion Extremities: Present: +3 Edema (Bilateral lower extremities) - Labs and Meds Cardiac Enzymes 12/08/20 Range/Units 04:10 AST 79 H (5-40) units/L Coagulation 12/08/20 Range/Units 04:10 PT 20.5 H (12.2-14.9) Sec. INR 1.69 H (0.87-1.13) CBC 12/08/20 Range/Units 04:10 WBC 10.5 (4.5-11.0) K/mm3 RBC 2.97 L (3.65-5.03) M/mm3 Hgb 9.4 L (11.8-15.2) gm/dl Hct 28.8 L (35.5-45.6) % Plt Count 251 (140-440) K/mm3 Comprehensive Metabolic Panel 12/08/20 Range/Units 04:10 Sodium 112 L* (137-145) mmol/L Potassium 4.8 (3.6-5.0) mmol/L Chloride 82.7 L (98-107) mmol/L Carbon Dioxide 19 L (22-30) mmol/L BUN 17 (9-20) mg/dL Creatinine < 0.2 L (0.8-1.3) mg/dL Glucose 99 (75-100) mg/dL Calcium 7.4 L (8.4-10.2) mg/dL AST 79 H (5-40) units/L ALT 57 H (7-56) units/L Alkaline Phosphatase 231 H (35-129) units/L Total Protein 5.2 L (6.3-8.2) g/dL Albumin 2.8 L (3.9-5) g/dL - Imaging and Cardiology Echo: report reviewed - Telemetry EKG Rhythm: Sinus Rhythm
[2020-12-08] MEDS ORDERED: prednisoLONE SOD PHOSPHATE 15 MG/5 ML ORAL LIQD PO SCH (12:00)
--- NOTE | 2020-12-08 13:26 | XRay Report ---
CHEST 1 VIEW INDICATION / CLINICAL INFORMATION: bilateral opacities, follow up. COMPARISON: 12/05/2020 FINDINGS: SUPPORT DEVICES: None. HEART / MEDIASTINUM: Stable cardiomegaly. LUNGS / PLEURA: Mild interstitial prominence appear significantly improved and nearly completely reso lved.. No areas of consolidation or pleural effusion are noted. No pneumothorax. ADDITIONAL FINDINGS: No significant additional findings. IMPRESSION: 1. Near resolution of previously noted bilateral interstitial pulmonary opacities. Signer Name: Jil Dave MD Signed: 12/08/2020 1:22 PM Workstation Name: [id number]
[2020-12-08] MEDS: prednisoLONE SOD PHOSPHATE 15 MG/5 ML ORAL LIQD PO SCH (14:43)
[2020-12-08] MEDS: METOPROLOL TARTRATE 25 MG TAB PO SCH ×2 (14:43→22:21)
[2020-12-08] MEDS: DIGOXIN 0.125 MG TAB PO SCH (14:50)
[2020-12-08] MEDS: AMIODARONE 900 MG in DEXTROSE 5% IN WATER 482 ML IV SCH (23:23)
[2020-12-09 05:33] LABS: Hematocrit 28.2 % (35.5-45.6); Hemoglobin 9.1 gm/dl (11.8-15.2); Mean Corpuscular HGB Conc 32 % (32-34); Mean Corpuscular Volume 98 fl (84-94); Platelet Count 228 K/mm3 (140-440); Red Blood Count 2.88 M/mm3 (3.65-5.03)
[2020-12-09 05:38] LABS: Red Cell Distribution Width 23.6 % (13.2-15.2)
[2020-12-09] MEDS: SODIUM CHLORIDE 0.9% 1000 ML 1,000 ML IV SCH ×2 (05:38→21:11)
[2020-12-09] MEDS: LORazepam 2 MG/ML VIAL IV PRN (05:58)
[2020-12-09 06:04] LABS: Alanine Aminotransferase 60 units/L (7-56); Albumin 2.9 g/dL (3.9-5); Blood Urea Nitrogen 24 mg/dL (9-20); Calcium 7.8 mg/dL (8.4-10.2); Hemolysis Index 26
[2020-12-09 06:20] LABS: BUN/Creatinine Ratio 80
[2020-12-09] MEDS ORDERED: SODIUM POLYSTYRENE 15 GM/60 ML ORAL LIQD PO SCH (08:00)
--- NOTE | 2020-12-09 09:22 | Progress Note ---
Assessment and Plan # Hyponatremia: suspect due to alcohol abuse, decreased po intake and potential "beer drinking potomania" phenomenon. Certainly may also have hypervolemic hyponatremia in setting of liver disease, but suspect acutely worsened with alcohol abuse - sodium marginally improved 114, was improving from 110->117, had worsened to 112 yesterday. - Appears to be on IVF (normal saline given hypochloremia), will continue, will add albumin bolus x1 to encourage normal saline to remain in intravascular space given hypoalbuminemia and third spacing - if concerned for volume status can simultaneously provide bolus of loop diuretic such as Lasix or Bumex which should also promote greater water loss than salt loss and not worsen hyponatremia, but would need to be cautious for over-diuresis and worsening dehydration - recommend q6-8 hour sodium/BMP checks - agree with banana bag, magnesium repletion - reviewed urine osm, na; less clinically helpful as he was already on IVF - TSH WNL; cortisol pending - no indication for hypertonic saline as he is mentating appropriately, no s eizures, etc. Also would like to avoid salt tabs to avoid more fluid gains; note a candidate for tolvaptan given liver # A-fib with RVR: suspect due to alcohol intake, appreciate cardiology. S/p amio bolus, echo reviewed and note low EF. Now on metoprolol # CIWA protocol for alcohol withdrawal concern: per primary, agree with mag repletion # Transminitis/Jaundice/Hyperbilirubinemia/Hypoalbuminemia: appreciate hepatology input; reviewed CT abd/pelvis. Given edema on exam, he is likely third spacing much fluid and is intravascularly dry still, will likely still need diuretic but would hold for now unless his respiratory status worsens. Agree with steroid per GI Subjective Date of service: 12/09/20 Principal diagnosis: HFrEF, Afib w/RVR, Alcoholic liver disease Interval history: Awake this AM, ruling out COVID-19. Remains restless. Started on steroids per GI/hepatology Objective - Exam Narrative Exam: General appearance: well-developed, appears stated age, obese, other (jaundiced appearing, anasarca noted) EENT: ATNC, PERRL, other (icteric sclera note) Neck: Present: neck supple Respiratory: Clear to Ascultation Heart: tachycardia, S1S2 Gastrointestinal: Present: normoactive bowel sounds Integumentary: no rash, warm and dry, other (jaundice) Neurologic: no focal deficit, alert and oriented x3, CN 3-12 intact Psychiatric: mood/affect appropriate - Vital Signs Vital signs: Vital Signs - 12hr 12/08/20 12/08/20 12/09/20 22:00 23:40 01:00 Temperature 97.7 F Pulse Rate 68 57 L Respiratory 28 H Rate Blood Pressure 91/59 O2 Sat by Pulse 90 98 Oximetry 12/09/20 08:32 Temperature Pulse Rate Respiratory Rate Blood Pressure O2 Sat by Pulse 98 Oximetry - Lab 12/09/20 04:44 12/09/20 04:44 Most recent lab results Calcium 7.8 mg/dL (8.4-10.2) L 12/09/20 04:44 Phosphorus 2.50 mg/dL (2.5-4.5) 12/06/20 10:01 Magnesium 1.90 mg/dL (1.7-2.3) 12/07/20 04:51 Urine Sodium 10 mmol/L 12/06/20 Unknown Medications & Allergies - Medications Allergies/Adverse Reactions: Allergies No Known Allergies Allergy (Unverified 12/05/20 15:43) Home Medications: Home Medications Medication Instructions Recorded Confirmed Last Taken Type No Known Home Medications [No 12/08/20 12/08/20 Unknown History Reported Home Medications] Active Medications: Generic Name Dose Route Start Last Admin Trade Name Freq PRN Reason Stop Dose Admin Albuterol 2.5 mg 12/05/20 17:11 Albuterol 2.5 Mg/3 Ml Nebu IH Q4HRT PRN Shortness Of Breath Digoxin 0.125 mg 12/08/20 12:00 12/08/20 14:50 Digoxin 0.125 Mg Tab PO 0.125 mg DAILY WESLEY Administration Folic Acid 1 mg 12/06/20 10:00 12/08/20 11:01 Folic Acid 1 Mg Tab PO 1 mg QDAY WESLEY Administration Hydromorphone HCl 0.5 mg 12/05/20 17:11 12/06/20 17:39 Hydromorphone 1 Mg/1 Ml Inj IV 0.5 mg Q12H PRN Administration Pain , Severe (7-10) Sodium Chloride 1,000 mls @ 75 mls/hr 12/08/20 05:45 12/09/20 05:38 Nacl 0.9% 1000 Ml IV 75 mls/hr DIRECT WESLEY Administration Lorazepam 2 mg 12/05/20 17:13 12/09/20 05:58 Lorazepam 2 Mg/Ml Vial IV 2 mg Q1HR PRN Administration MIKAYLA-Mauro 8-15 Metoprolol Tartrate 12.5 mg 12/08/20 12:00 12/08/20 22:21 Metoprolol Tartrate 25 Mg Tab PO 12.5 mg BID WESLEY Administration Morphine Sulfate 1 mg 12/05/20 17:11 12/08/20 01:48 Morphine 2 Mg/1 Ml Inj IV 1 mg Q8H PRN Administration Pain, Moderate (4-6) Multivitamins 1 each 12/06/20 10:00 12/08/20 11:01 Multivitamins ,Therapeutic Tab PO 1 each QDAY WESLEY Administration Ondansetron HCl 4 mg 12/05/20 17:11 Ondansetron 4 Mg/2 Ml Inj IV Q8H PRN Nausea And Vomiting Prednisolone Sodium Phosphate 40 mg 12/08/20 12:00 12/08/20 14:43 Prednisolone Sod Phosphate 15 Mg/5 Ml Oral Liqd PO 40 mg QDAY WESLEY Administration Sodium Chloride 10 ml 12/05/20 22:00 12/08/20 22:20 Sodium Chloride 0.9% 10 Ml Flush Syringe IV 10 ml BID WESLEY Administration Sodium Chloride 10 ml 12/05/20 17:11 Sodium Chloride 0.9% 10 Ml Flush Syringe IV PRN PRN LINE FLUSH Sodium Polystyrene Sulfonate 30 gm 12/09/20 08:00 Sodium Polystyrene 15 Gm/60 Ml Oral Liqd PO 12/09/20 12:00 ONCE WESLEY Thiamine HCl 100 mg 12/06/20 10:00 12/08/20 11:01 Thiamine 100 Mg Tab PO 100 mg QDAY WESLEY Administration
[2020-12-09] MEDS: FOLIC ACID 1 MG TAB PO SCH (10:44)
[2020-12-09] MEDS: DIGOXIN 0.125 MG TAB PO SCH (10:44)
[2020-12-09] MEDS: prednisoLONE SOD PHOSPHATE 15 MG/5 ML ORAL LIQD PO SCH (10:47)
[2020-12-09] MEDS: METOPROLOL TARTRATE 25 MG TAB PO SCH ×2 (10:47→21:12)
[2020-12-09] MEDS: THIAMINE 100 MG TAB PO SCH (10:48)
[2020-12-09] MEDS: MULTIVITAMINS ,THERAPEUTIC TAB PO SCH (10:48)
--- NOTE | 2020-12-09 10:57 | Gastroenterology Progress Note ---
Assessment and Plan 50 yo male admitted for anasarca, afib with RVR, CHF with EF 10-15 % on TTE, and severe hyponatremia. Rec - recommend diagnostic paracentesis. Avoid therapeutic paracentesis given borderline BP. Radiology available for paracentesis on Thursday. - due to Maddrey score at 42, started prednisolone 40 mg daily for alcoholic hepatitis. Will continue current dose for now and monitor response - would need volume diuresis. Would defer to cardiology and nephrology. - avoid hepato toxic medications. currently on amiodarone but cardiology recommending BB and digoxin in attempt to stop amiodarone given liver disease. - Patient Problems (1) Jaundice Current Visit: Yes Status: Acute (2) Hyponatremia Current Visit: Yes Status: Acute (3) Alcohol dependence Current Visit: Yes Status: Chronic Subjective Date of service: 12/09/20 Principal diagnosis: HFrEF, Afib w/RVR, Alcoholic liver disease Interval history: pt in restraints today (pulled out IV prior), denies abd pain currently, no melena Objective - Constitutional Vitals: Temp Pulse Resp BP Pulse Ox 97.7 F 57 L 28 H 91/59 98 12/08/20 23:40 12/08/20 23:40 12/08/20 23:40 12/08/20 23:40 12/09/20 10:52 General appearance: other (jaundiced) - EENT Eyes: scleral icterus - Cardiovascular Rhythm: regular - Extremities Extremity abnormal: edema - Gastrointestinal General gastrointestinal: Present: soft - Labs CBC & Chem 7: 12/09/20 04:44 12/09/20 04:44 Labs: Laboratory Results - last 24 hr 12/09/20 12/09/20 12/09/20 04:44 04:44 04:44 WBC 12.9 H RBC 2.88 L Hgb 9.1 L Hct 28.2 L MCV 98 H MCH 32 MCHC 32 RDW 23.6 H Plt Count 228 Sodium 114 L* Potassium 5.4 H Chloride 82.9 L Carbon Dioxide 16 L Anion Gap 21 BUN 24 H Creatinine 0.3 L D Estimated GFR > 60 BUN/Creatinine Ratio 80 Glucose 81 Calcium 7.8 L Total Bilirubin 18.60 H AST 88 H ALT 60 H Alkaline Phosphatase 213 H Total Protein 5.0 L Albumin 2.9 L Albumin/Globulin Ratio 1.4 TSH 1.490
[2020-12-09] MEDS ORDERED: ALBUMIN HUMAN 25% (25 GM/100 ML) INJ IV ONE (11:00)
--- NOTE | 2020-12-09 11:06 | Progress Note ---
Assessment and Plan Discontinue amiodarone especially with his liver disease. Continue digoxin and metoprolol as tolerated. I did not give him a loading dose of digoxin when it was initiated yesterday due to potential for interaction with amiodarone. Obtain digoxin level in a.m. and give additional or loading doses as necessary. - Patient Problems (1) Acute HFrEF (heart failure with reduced ejection fraction) Current Visit: Yes Status: Acute (2) Atrial fibrillation with RVR Current Visit: Yes Status: Acute (3) Dilated cardiomyopathy Current Visit: Yes Status: Acute (4) Right ventricular dysfunction Current Visit: Yes Status: Acute (5) Hyponatremia Current Visit: Yes Status: Acute (6) Chest pain Current Visit: Yes Status: Resolved (7) Alcoholic liver disease Current Visit: Yes Status: Chronic (8) Alcohol dependence Current Visit: Yes Status: Chronic Subjective Date of service: 12/09/20 Principal diagnosis: HFrEF, Afib w/RVR, Alcoholic liver disease Interval history: The patient apparently desaturated and is on facemask this morning. He has converted to sinus rhythm. Objective Vital Signs Temp Pulse Resp BP Pulse Ox 12/09/20 10:52 98 12/09/20 08:32 98 12/09/20 01:00 98 12/08/20 23:40 97.7 F 57 L 28 H 91/59 90 12/08/20 22:00 68 12/08/20 20:26 100 12/08/20 20:06 97.5 F L 63 18 87/61 85 12/08/20 17:44 98.3 F 57 L 20 86/55 91 12/08/20 12:45 98.5 F 82 0 L 116/78 100 12/08/20 11:09 94 - Physical Examination General: No Apparent Distress HEENT: Positive: EOMI, Normocephaly, Mucus Membranes Moist Neck: Positive: neck supple, trachea midline, JVD/HJR Cardiac: Positive: Reg Rate and Rhythm, S1/S2 Lungs: Positive: clear to auscultation Neuro: Positive: Grossly Intact Abdomen: Positive: Soft, Active Bowel Sounds. Negative: Tender Skin: Positive: Clear Musculoskeletal: Normal Range of Motion Extremities: Present: +3 Edema (Bilateral lower extremities) - Labs and Meds Cardiac Enzymes 12/09/20 Range/Units 04:44 AST 88 H (5-40) units/L CBC 12/09/20 Range/Units 04:44 WBC 12.9 H (4.5-11.0) K/mm3 RBC 2.88 L (3.65-5.03) M/mm3 Hgb 9.1 L (11.8-15.2) gm/dl Hct 28.2 L (35.5-45.6) % Plt Count 228 (140-440) K/mm3 Comprehensive Metabolic Panel 12/09/20 Range/Units 04:44 Sodium 114 L* (137-145) mmol/L Potassium 5.4 H (3.6-5.0) mmol/L Chloride 82.9 L (98-107) mmol/L Carbon Dioxide 16 L (22-30) mmol/L BUN 24 H (9-20) mg/dL Creatinine 0.3 L D (0.8-1.3) mg/dL Glucose 81 (75-100) mg/dL Calcium 7.8 L (8.4-10.2) mg/dL AST 88 H (5-40) units/L ALT 60 H (7-56) units/L Alkaline Phosphatase 213 H (35-129) units/L Total Protein 5.0 L (6.3-8.2) g/dL Albumin 2.9 L (3.9-5) g/dL - Imaging and Cardiology EKG: image reviewed Echo: report reviewed - Telemetry EKG Rhythm: Sinus Rhythm
[2020-12-09] MEDS: PHYTONADIONE 10 MG/1 ML (ADULT ONLY)*INJECTION SUB-Q SCH (11:39)
--- NOTE | 2020-12-09 11:40 | Progress Note ---
Assessment and Plan Assessment and plan: (1) Atrial fibrillation with rapid ventricular response Current Visit: No Status: Acute Plan to address problem: EKG, telemetry monitoring, medical cardioversion in the emergency department. Supportive care, cardiology team consulted. (2) Alcoholic liver disease Current Visit: Yes Status: Acute Plan to address problem: CIWA protocol, fractionated bilirubin, CT scan abdomen and pelvis has been ordered and is pending at time of admission to evaluate for hepatobiliary obstruction GI consulted (3) Hyponatremia Current Visit: No Status: Acute Plan to address problem: IV fluid resuscitation therapy, BMP, repeat BMP in a.m. monitor fluid balance, (4) DVT prophylaxis Current Visit: Yes Status: Acute Plan to address problem: SCD to bilateral lower extremities while in bed, patient is ambulatory Anasarca 12/06/20 Patient with atrial fibrillation with RVR, severe hyponatremia, a lcoholic liver disease. Consulted Cardiology, GI and Nephrology. Started on Amiodarone, iv fluids, Thiamine Sodium 114 12/07/20 Patient with atrial fibrillation with RVR, severe hyponatremia, alcoholi c liver disease. Cardiology, GI and Nephrology following. Started on Amiodarone, iv fluids, Thiamine Sodium 117 today, slight increased 12/08/20 Patient with atrial fibrillation with RVR, severe hyponatremia, alcoholic liver disease. Cardiology, GI and Nephrology following. On Amiodarone, iv fluids, Thiamine Sodium 112 today, worsening I discussed case with GI. She is contemplating poss starting steroids. Will order Coronavirus PCR as suggested by GI. Repeat CXR today. 12/09/20 Patient with atrial fibrillation with RVR, severe hyponatremia, alcoholic liver disease. Cardiology, GI and Nephrology following. On Amiodarone, iv fluids, Thiamine Sodium 114 today, Hyperkalemia with Potassium 5.4. Give kayexalate I discussed case with GI. She has started him on Prednisone. Ordered Coronavirus PCR as suggested by GI. Sanjay manjarrez as Nurse had difficulty obtaining urine because of edema of penis, scrotum. History Interval history: shortness of breath palpitations Generalized edema No fever Hospitalist Physical - Physical exam Narrative exam: Gen:Not in acute distress, lying in bed,jaundiced HEENT:Normocephalic, atraumatic Neck:supple, no JVD Lungs: Bilateral crackles, no wheeze Heart:S1 and S2 reg, no murmurs, rubs or gallop Abd:Soft, non tender, non distended, normal bowel sounds Ext: Bilateral marked pitting edema. no clubbing, no cyanosis Neuro:Awake, alert, oriented X 3, moves all extremities Skin:anasarca - Constitutional Vitals: Temp Pulse Resp BP Pulse Ox 97.7 F 57 L 28 H 91/59 98 12/08/20 23:40 12/08/20 23:40 12/08/20 23:40 12/08/20 23:40 12/09/20 10:52 General appearance: Present: no acute distress HEART Score - HEART Score Troponin: Troponin T < 0.010 ng/mL (0.00-0.029) 12/07/20 04:51 Results - Labs CBC & Chem 7: 12/09/20 04:44 12/09/20 04:44 Labs: Laboratory Last Values WBC 12.9 K/mm3 (4.5-11.0) H 12/09/20 04:44 RBC 2.88 M/mm3 (3.65-5.03) L 12/09/20 04:44 Hgb 9.1 gm/dl (11.8-15.2) L 12/09/20 04:44 Hct 28.2 % (35.5-45.6) L 12/09/20 04:44 MCV 98 fl (84-94) H 12/09/20 04:44 MCH 32 pg (28-32) 12/09/20 04:44 MCHC 32 % (32-34) 12/09/20 04:44 RDW 23.6 % (13.2-15.2) H 12/09/20 04:44 Plt Count 228 K/mm3 (140-440) 12/09/20 04:44 Add Manual Diff Complete 12/05/20 14:14 Total Counted 100 12/05/20 14:14 Seg Neuts % (Manual) 90.0 % (40.0-70.0) H 12/05/20 14:14 Band Neutrophils % 3.0 % 12/05/20 14:14 Lymphocytes % (Manual) 4.0 % (13.4-35.0) L 12/05/20 14:14 Monocytes % (Manual) 2.0 % (0.0-7.3) 12/05/20 14:14 Eosinophils % (Manual) 1.0 % (0.0-4.3) 12/05/20 14:14 Nucleated RBC % Not Reportable 12/05/20 14:14 Seg Neutrophils # Man 10.4 K/mm3 (1.8-7.7) H 12/05/20 14:14 Band Neutrophils # 0.3 K/mm3 12/05/20 14:14 Lymphocytes # (Manual) 0.5 K/mm3 (1.2-5.4) L 12/05/20 14:14 Abs React Lymphs (Man) 0.0 K/mm3 12/05/20 14:14 Monocytes # (Manual) 0.2 K/mm3 (0.0-0.8) 12/05/20 14:14 Eosinophils # (Manual) 0.1 K/mm3 (0.0-0.4) 12/05/20 14:14 Basophils # (Manual) 0.0 K/mm3 (0.0-0.1) 12/05/20 14:14 Metamyelocytes # 0.0 K/mm3 12/05/20 14:14 Myelocytes # 0.0 K/mm3 12/05/20 14:14 Promyelocytes # 0.0 K/mm3 12/05/20 14:14 Blast Cells # 0.0 K/mm3 12/05/20 14:14 WBC Morphology Not Reportable 12/05/20 14:14 Hypersegmented Neuts Not Reportable 12/05/20 14:14 Hyposegmented Neuts Not Reportable 12/05/20 14:14 Hypogranular Neuts Not Reportable 12/05/20 14:14 Smudge Cells Not Reportable 12/05/20 14:14 Toxic Granulation Not Reportable 12/05/20 14:14 Toxic Vacuolation Not Reportable 12/05/20 14:14 Dohle Bodies Not Reportable 12/05/20 14:14 Pelger-Huet Anomaly Not Reportable 12/05/20 14:14 Tamiko Rods Not Reportable 12/05/20 14:14 Platelet Estimate Consistent w auto 12/05/20 14:14 Clumped Platelets Not Reportable 12/05/20 14:14 Plt Clumps, EDTA Not Reportable 12/05/20 14:14 Large Platelets Not Reportable 12/05/20 14:14 Giant Platelets Not Reportable 12/05/20 14:14 Platelet Satelliting Not Reportable 12/05/20 14:14 Plt Morphology Comment Not Reportable 12/05/20 14:14 RBC Morphology Not Reportable 12/05/20 14:14 Dimorphic RBCs Not Reportable 12/05/20 14:14 Polychromasia Not Reportable 12/05/20 14:14 Hypochromasia Few 12/05/20 14:14 Poikilocytosis Not Reportable 12/05/20 14:14 Anisocytosis 1+ 12/05/20 14:14 Microcytosis Not Reportable 12/05/20 14:14 Macrocytosis 1+ 12/05/20 14:14 Spherocytes Not Reportable 12/05/20 14:14 Pappenheimer Bodies Not Reportable 12/05/20 14:14 Sickle Cells Not Reportable 12/05/20 14:14 Target Cells 2+ 12/05/20 14:14 Tear Drop Cells Not Reportable 12/05/20 14:14 Ovalocytes Not Reportable 12/05/20 14:14 Helmet Cells Not Reportable 12/05/20 14:14 Guillen-Iota Bodies Not Reportable 12/05/20 14:14 Cadiz Rings Not Reportable 12/05/20 14:14 Bernardo Cells Not Reportable 12/05/20 14:14 Bite Cells Not Reportable 12/05/20 14:14 Crenated Cell Not Reportable 12/05/20 14:14 Elliptocytes Not Reportable 12/05/20 14:14 Acanthocytes (Spur) Not Reportable 12/05/20 14:14 Rouleaux Not Reportable 12/05/20 14:14 Hemoglobin C Crystals Not Reportable 12/05/20 14:14 Schistocytes Not Reportable 12/05/20 14:14 Malaria parasites Not Reportable 12/05/20 14:14 Parrish Bodies Not Reportable 12/05/20 14:14 Hem Pathologist Commnt No 12/05/20 14:14 PT 20.5 Sec. (12.2-14.9) H 12/08/20 04:10 INR 1.69 (0.87-1.13) H 12/08/20 04:10 APTT 31.8 Sec. (24.2-36.6) 12/05/20 14:14 Sodium 114 mmol/L (137-145) L* 12/09/20 04:44 Potassium 5.4 mmol/L (3.6-5.0) H 12/09/20 04:44 Chloride 82.9 mmol/L (98-107) L 12/09/20 04:44 Carbon Dioxide 16 mmol/L (22-30) L 12/09/20 04:44 Anion Gap 21 mmol/L 12/09/20 04:44 BUN 24 mg/dL (9-20) H 12/09/20 04:44 Creatinine 0.3 mg/dL (0.8-1.3) L D 12/09/20 04:44 Estimated GFR > 60 ml/min 12/09/20 04:44 BUN/Creatinine Ratio 80 % 12/09/20 04:44 Glucose 81 mg/dL (75-100) 12/09/20 04:44 Calcium 7.8 mg/dL (8.4-10.2) L 12/09/20 04:44 Phosphorus 2.50 mg/dL (2.5-4.5) 12/06/20 10:01 Magnesium 1.90 mg/dL (1.7-2.3) 12/07/20 04:51 Iron 61 ug/dL (49-181) 12/06/20 13:18 TIBC 326 mcg/dL (250-450) 12/06/20 13:18 Total Bilirubin 18.60 mg/dL (0.1-1.2) H 12/09/20 04:44 Direct Bilirubin 13.1 mg/dL (0-0.2) H 12/07/20 04:51 Indirect Bilirubin 6.1 mg/dL 12/07/20 04:51 AST 88 units/L (5-40) H 12/09/20 04:44 ALT 60 units/L (7-56) H 12/09/20 04:44 Alkaline Phosphatase 213 units/L (35-129) H 12/09/20 04:44 Troponin T < 0.010 ng/mL (0.00-0.029) 12/07/20 04:51 Total Protein 5.0 g/dL (6.3-8.2) L 12/09/20 04:44 Albumin 2.9 g/dL (3.9-5) L 12/09/20 04:44 Albumin/Globulin Ratio 1.4 % 12/09/20 04:44 TSH 1.490 mlU/mL (0.270-4.200) 12/09/20 04:44 Urine Osmolality 573 Mosm/kg 12/06/20 Unknown Urine Sodium 10 mmol/L 12/06/20 Unknown Plasma/Serum Alcohol < 0.01 % (0-0.07) 12/05/20 14:14 Hep Bs Antigen Nonreactive (Negative) 12/06/20 13:18 Hepatitis C Antibody Non-reactive (NonReactive) 12/06/20 13:18 Manjarrez/IV: Voiding Method Toilet Active Medications - Current Medications Current Medications: Generic Name Dose Route Start Last Admin Trade Name Freq PRN Reason Stop Dose Admin Albuterol 2.5 mg 12/05/20 17:11 Albuterol 2.5 Mg/3 Ml Nebu IH Q4HRT PRN Shortness Of Breath Digoxin 0.125 mg 12/08/20 12:00 12/09/20 10:44 Digoxin 0.125 Mg Tab PO 0.125 mg DAILY WESLEY Administration Folic Acid 1 mg 12/06/20 10:00 12/09/20 10:44 Folic Acid 1 Mg Tab PO 1 mg QDAY WESLEY Administration Hydromorphone HCl 0.5 mg 12/05/20 17:11 12/06/20 17:39 Hydromorphone 1 Mg/1 Ml Inj IV 0.5 mg Q12H PRN Administration Pain , Severe (7-10) Sodium Chloride 1,000 mls @ 75 mls/hr 12/08/20 05:45 12/09/20 05:38 Nacl 0.9% 1000 Ml IV 75 mls/hr DIRECT WESLEY Administration Lorazepam 2 mg 12/05/20 17:13 12/09/20 05:58 Lorazepam 2 Mg/Ml Vial IV 2 mg Q1HR PRN Administration CIWA-Ar 8-15 Metoprolol Tartrate 12.5 mg 12/08/20 12:00 12/09/20 10:47 Metoprolol Tartrate 25 Mg Tab PO 12.5 mg BID WESLEY Administration Morphine Sulfate 1 mg 12/05/20 17:11 12/08/20 01:48 Morphine 2 Mg/1 Ml Inj IV 1 mg Q8H PRN Administration Pain, Moderate (4-6) Multivitamins 1 each 12/06/20 10:00 12/09/20 10:48 Multivitamins ,Therapeutic Tab PO 1 each QDAY WESLEY Administration Ondansetron HCl 4 mg 12/05/20 17:11 Ondansetron 4 Mg/2 Ml Inj IV Q8H PRN Nausea And Vomiting Phytonadione 5 mg 12/09/20 11:00 Phytonadione 10 Mg/1 Ml (Adult Only)*Injection* SUB-Q 12/11/20 10:01 DAILY WESLEY Prednisolone Sodium Phosphate 40 mg 12/08/20 12:00 12/09/20 10:47 Prednisolone Sod Phosphate 15 Mg/5 Ml Oral Liqd PO 40 mg QDAY WESLEY Administration Sodium Chloride 10 ml 12/05/20 22:00 12/09/20 10:47 Sodium Chloride 0.9% 10 Ml Flush Syringe IV Not Given BID WESLEY Sodium Chloride 10 ml 12/05/20 17:11 Sodium Chloride 0.9% 10 Ml Flush Syringe IV PRN PRN LINE FLUSH Sodium Polystyrene Sulfonate 30 gm 12/09/20 08:00 Sodium Polystyrene 15 Gm/60 Ml Oral Liqd PO 12/09/20 12:00 ONCE WESLEY Thiamine HCl 100 mg 12/06/20 10:00 12/09/20 10:48 Thiamine 100 Mg Tab PO 100 mg QDAY WESLEY Administration
[2020-12-09 16:29] LABS: Bacteria,Urine 1+ /HPF (Negative); Bilirubin,Urine MOD (Negative); Blood,Urine NEG (Negative); Broad Casts,Urine 1 /LPF; Color,Urine Amber (Yellow); Hyaline Casts,Urine 88 /LPF; Mucus,Urine 2+ /HPF
[2020-12-09 16:43] LABS: Ictotest,Urine 2 (Negative)
[2020-12-10] MEDS: LORazepam 2 MG/ML VIAL IV PRN (00:19)
[2020-12-10 05:45] LABS: Alanine Aminotransferase 56 units/L (7-56); Albumin 2.8 g/dL (3.9-5); Blood Urea Nitrogen 24 mg/dL (9-20); Calcium 7.8 mg/dL (8.4-10.2); Hemolysis Index 45
[2020-12-10 06:00] LABS: BUN/Creatinine Ratio 120
--- NOTE | 2020-12-10 09:37 | Progress Note ---
Assessment and Plan Impression * Hyponatremia, hypervolemic - likely due to alcohol abuse, decreased po intake and potential "beer drinking potomania" phenomenon vs hypervolemic hyponatremia in setting of liver disease * Alcoholic hepatitis * Cardiomyopathy - EF 10-15% * Transamintis * Hyperbilirubinemia * Anasarca * Alcohol abuse * Atrial fibrillation Plan: * Will discontinue IVF in setting of increase in patient's oxygen requirement * Start diuresis - will give Lasix 20mg IV BID w/ Albumim * Sodium w/ gradual improvement - BMP q8h * GI recommendations noted * Rate control per cardiology * CIWA protocol per primary team * Replete lytes prn Subjective Date of service: 12/10/20 Principal diagnosis: HFrEF, Afib w/RVR, Alcoholic liver disease Interval history: Patient with increase in oxygen requirement - currently on 6L NC oxygen Objective - Vital Signs Vital signs: Vital Signs - 12hr 12/09/20 12/09/20 12/10/20 22:00 23:23 04:01 Temperature 98.0 F 98.6 F Pulse Rate 81 Respiratory 18 18 Rate Blood Pressure 135/109 116/71 O2 Sat by Pulse 98 Oximetry - General Appearance General appearance: well-developed, well-nourished EENT: ATNC Respiratory: Present: Decreased Breath Sounds Cardiology: regular, S1S2, other (patient with generalized edema/anasarca - pitting edema to flank) Gastrointestinal: no tenderness Integumentary: warm and dry Psychiatric: cooperative - Lab 12/09/20 04:44 12/10/20 04:27 Most recent lab results Calcium 7.8 mg/dL (8.4-10.2) L 12/10/20 04:27 Phosphorus 2.50 mg/dL (2.5-4.5) 12/06/20 10:01 Magnesium 1.90 mg/dL (1.7-2.3) 12/07/20 04:51 Urine Sodium 10 mmol/L 12/06/20 Unknown Medications & Allergies - Medications Allergies/Adverse Reactions: Allergies No Known Allergies Allergy (Unverified 12/05/20 15:43) Home Medications: Home Medications Medication Instructions Recorded Confirmed Last Taken Type No Known Home Medications [No 12/08/20 12/08/20 Unknown History Reported Home Medications] Active Medications: Generic Name Dose Route Start Last Admin Trade Name Freq PRN Reason Stop Dose Admin Albuterol 2.5 mg 12/05/20 17:11 12/09/20 20:33 Albuterol 2.5 Mg/3 Ml Nebu IH 2.5 mg Q4HRT PRN Administration Shortness Of Breath Digoxin 0.125 mg 12/08/20 12:00 12/09/20 10:44 Digoxin 0.125 Mg Tab PO 0.125 mg DAILY WESLEY Administration Folic Acid 1 mg 12/06/20 10:00 12/09/20 10:44 Folic Acid 1 Mg Tab PO 1 mg QDAY WESLEY Administration Hydromorphone HCl 0.5 mg 12/05/20 17:11 12/06/20 17:39 Hydromorphone 1 Mg/1 Ml Inj IV 0.5 mg Q12H PRN Administration Pain , Severe (7-10) Sodium Chloride 1,000 mls @ 75 mls/hr 12/08/20 05:45 12/09/20 21:11 Nacl 0.9% 1000 Ml IV 75 mls/hr DIRECT WESLEY Administration Ceftriaxone Sodium 1 gm in 50 mls @ 100 mls/hr 12/10/20 08:00 Rocephin/Ns 1 Gm/50 Ml IV Q24H WESLEY Protocol Lorazepam 2 mg 12/05/20 17:13 12/10/20 00:19 Lorazepam 2 Mg/Ml Vial IV 2 mg Q1HR PRN Administration MIKAYLA-Mauro 8-15 Metoprolol Tartrate 12.5 mg 12/08/20 12:00 12/09/20 21:12 Metoprolol Tartrate 25 Mg Tab PO 12.5 mg BID WESLEY Administration Morphine Sulfate 1 mg 12/05/20 17:11 12/08/20 01:48 Morphine 2 Mg/1 Ml Inj IV 1 mg Q8H PRN Administration Pain, Moderate (4-6) Multivitamins 1 each 12/06/20 10:00 12/09/20 10:48 Multivitamins ,Therapeutic Tab PO 1 each QDAY WESLEY Administration Ondansetron HCl 4 mg 12/05/20 17:11 Ondansetron 4 Mg/2 Ml Inj IV Q8H PRN Nausea And Vomiting Phytonadione 5 mg 12/09/20 11:00 12/09/20 11:39 Phytonadione 10 Mg/1 Ml (Adult Only)*Injection* SUB-Q 12/11/20 10:01 5 mg DAILY WESLEY Administration Prednisolone Sodium Phosphate 40 mg 12/08/20 12:00 12/09/20 10:47 Prednisolone Sod Phosphate 15 Mg/5 Ml Oral Liqd PO 40 mg QDAY WESLEY Administration Sodium Chloride 10 ml 12/05/20 22:00 12/09/20 21:12 Sodium Chloride 0.9% 10 Ml Flush Syringe IV 10 ml BID WESLEY Administration Sodium Chloride 10 ml 12/05/20 17:11 Sodium Chloride 0.9% 10 Ml Flush Syringe IV PRN PRN LINE FLUSH Thiamine HCl 100 mg 12/06/20 10:00 12/09/20 10:48 Thiamine 100 Mg Tab PO 100 mg QDAY WESLEY Administration
[2020-12-10] MEDS: cefTRIAXone/NS 1 GM/50 ML 1 GM/50 ML BAG IV SCH (09:47)
[2020-12-10] MEDS: DIGOXIN 0.125 MG TAB PO SCH (09:48)
[2020-12-10] MEDS: FOLIC ACID 1 MG TAB PO SCH (09:48)
[2020-12-10] MEDS: THIAMINE 100 MG TAB PO SCH (09:48)
[2020-12-10] MEDS: MULTIVITAMINS ,THERAPEUTIC TAB PO SCH (09:48)
[2020-12-10] MEDS: METOPROLOL TARTRATE 25 MG TAB PO SCH ×2 (09:52→21:20)
[2020-12-10] MEDS: PHYTONADIONE 10 MG/1 ML (ADULT ONLY)*INJECTION SUB-Q SCH (09:53)
[2020-12-10] MEDS: prednisoLONE SOD PHOSPHATE 15 MG/5 ML ORAL LIQD PO SCH (09:55)
[2020-12-10] MEDS: ALBUMIN HUMAN 25% (25 GM/100 ML) INJ IV SCH ×2 (10:56→23:09)
[2020-12-10] MEDS: FUROSEMIDE 20 MG/2 ML INJ IV SCH ×2 (10:56→21:19)
[2020-12-10] MEDS ORDERED: FUROSEMIDE 40 MG/4 ML INJ IV SCH (11:00)
--- NOTE | 2020-12-10 11:10 | Gastroenterology Progress Note ---
Assessment and Plan 50 yo male admitted for anasarca, afib with RVR, CHF with EF 10-15 % on TTE, and severe hyponatremia. Rec - recommend diagnostic paracentesis. Avoid therapeutic paracentesis given borderline BP. This will help differentiate between hepatic and cardiac source of ascites -Optimize cardiac status -For encephalopathy starting lactulose - due to Maddrey score at 42, started prednisolone 40 mg daily for alcoholic hepatitis. Will continue current dose for now and monitor response -Appreciate nephrology input regarding diuresis in the setting of improving hyponatremia. - avoid hepato toxic medications. 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 Patient is confused I asked him how he is feeling and he said " a little" He did not respond when asked about location and was not directly following commands When I walked into the room he was completely unclothed with no coverings on him Objective - Constitutional Vitals: Temp Pulse Resp BP Pulse Ox 98.6 F 81 18 116/71 98 12/10/20 04:01 12/09/20 22:00 12/10/20 04:01 12/10/20 04:01 12/09/20 22:00 General appearance: other (Edematous, jaundiced) - EENT Eyes: scleral icterus - Neck Neck: supple - Respiratory Respiratory effort: other (Mildly increased work of breathing) - Gastrointestinal General gastrointestinal: Present: soft - Integumentary Integumentary: Present: clear (Diffuse edema) - Neurologic Neurological: disoriented - Labs CBC & Chem 7: 12/09/20 04:44 12/10/20 04:27 Labs: Laboratory Results - last 24 hr 12/09/20 12/09/20 12/10/20 09:29 15:48 04:27 Sodium 122 L D Potassium 4.5 Chloride 92.4 L Carbon Dioxide 18 L Anion Gap 16 BUN 24 H Creatinine < 0.2 L Estimated GFR > 60 BUN/Creatinine Ratio 120 Glucose 90 Calcium 7.8 L Total Bilirubin 18.80 H AST 80 H ALT 56 Alkaline Phosphatase 177 H Total Protein 4.7 L Albumin 2.8 L Albumin/Globulin Ratio 1.5 Urine Color Meredith Urine Turbidity Slightly-cloudy Urine pH 5.0 Ur Specific [place] 1.019 Urine Protein 30 mg/dl Urine Glucose (UA) Neg Urine Ketones Neg Urine Blood Neg Urine Nitrite Neg Urine Bilirubin Mod Urine Ictotest 2 Urine Urobilinogen 4.0 Ur Leukocyte Esterase Neg Urine WBC (Auto) 31.0 H Urine RBC (Auto) 6.0 U Epithel Cells (Auto) 101.0 H Urine Bacteria (Auto) 1+ Urine WBC Clumps 2+ Hyaline Casts 88 Broad Casts 1 Urine Mucus 2+ Digoxin Coronavirus (PCR) Negative 12/10/20 04:27 Sodium Potassium Chloride Carbon Dioxide Anion Gap BUN Creatinine Estimated GFR BUN/Creatinine Ratio Glucose Calcium Total Bilirubin AST ALT Alkaline Phosphatase Total Protein Albumin Albumin/Globulin Ratio Urine Color Urine Turbidity Urine pH Ur Specific [place] Urine Protein Urine Glucose (UA) Urine Ketones Urine Blood Urine Nitrite Urine Bilirubin Urine Ictotest Urine Urobilinogen Ur Leukocyte Esterase Urine WBC (Auto) Urine RBC (Auto) U Epithel Cells (Auto) Urine Bacteria (Auto) Urine WBC Clumps Hyaline Casts Broad Casts Urine Mucus Digoxin 0.3 L Coronavirus (PCR)
--- NOTE | 2020-12-10 12:04 | Progress Note ---
Assessment and Plan Assessment and plan: (1) Atrial fibrillation with rapid ventricular response Current Visit: No Status: Acute Plan to address problem: EKG, telemetry monitoring, medical cardioversion in the emergency department. Supportive care, cardiology team consulted. (2) Alcoholic liver disease Current Visit: Yes Status: Acute Plan to address problem: CIWA protocol, fractionated bilirubin, CT scan abdomen and pelvis has been ordered and is pending at time of admission to evaluate for hepatobiliary obstruction GI consulted (3) Hyponatremia Current Visit: No Status: Acute Plan to address problem: IV fluid resuscitation therapy, BMP, repeat BMP in a.m. monitor fluid balance, (4) DVT prophylaxis Current Visit: Yes Status: Acute Plan to address problem: SCD to bilateral lower extremities while in bed, patient is ambulatory Anasarca Hyperkalemia 12/06/20 Patient with atrial fibrillation with RVR, severe hyponatremia, alcoholic liver disease. Consulted Cardiology, GI and Nephrology. Started on Amiodarone, iv fluids, Thiamine Sodium 114 12/07/20 Patient with atrial fibrillation with RVR, severe hyponatremia, alcoholic liver disease. Cardiology, GI and Nephrology following. Started on Amiodarone, iv fluids, Thiamine Sodium 117 today, slight increased 12/08/20 Patient with atrial fibrillation with RVR, severe hyponatremia, alcoholic liver disease. Cardiology, GI and Nephrology following. On Amiodarone, iv fluids, Thiamine Sodium 112 today, worsening I discussed case with GI. She is contemplating poss starting steroids. Will order Coronavirus PCR as suggested by GI. Repeat CXR today. 12/09/20 Patient with atrial fibrillation with RVR, severe hyponatremia, alcoholic liver disease. Cardiology, GI and Nephrology following. On Amiodarone, iv fluids, Thiamine Sodium 114 today, Hyperkalemia with Potassium 5.4. Give kayexalate I discussed case with GI. She has started him on Prednisone. Ordered Coronavirus PCR as suggested by GI. Sanjay manjarrez as Nurse had difficulty obtaining urine because of edema of penis, scrotum. 12/10/20 Patient with atrial fibrillation with RVR, severe hyponatremia, alco holic liver disease. Cardiology, GI and Nephrology following. iv fluids, Thiamine Sodium improving, 122 today, Hyperkalemia now resolved after kayexalate I discussed case with GI. She has started him on Prednisone for alcoholic hepatitis Ordered Coronavirus PCR as suggested by GI, negative Covid. Placed manjarrez as Nurse had difficulty obtaining urine because of edema of penis, scrotum. History Interval history: shortness of breath palpitations Generalized edema No fever Hospitalist Physical - Physical exam Narrative exam: Gen:Not in acute distress, lying in bed,jaundiced HEENT:Normocephalic, atraumatic Neck:supple, no JVD Lungs: Bilateral crackles, no wheeze Heart:S1 and S2 reg, no murmurs, rubs or gallop Abd:Soft, non tender, non distended, normal bowel sounds Ext: Bilateral marked pitting edema. no clubbing, no cyanosis Neuro:Awake, alert, oriented X 3, moves all extremities Skin:anasarca - Constitutional Vitals: Temp Pulse Resp BP Pulse Ox 98.6 F 81 18 116/71 98 12/10/20 04:01 12/09/20 22:00 12/10/20 04:01 12/10/20 04:01 12/09/20 22:00 General appearance: Present: no acute distress HEART Score - HEART Score Troponin: Troponin T < 0.010 ng/mL (0.00-0.029) 12/07/20 04:51 Results - Labs CBC & Chem 7: 12/09/20 04:44 12/10/20 04:27 Labs: Laboratory Last Values WBC 12.9 K/mm3 (4.5-11.0) H 12/09/20 04:44 RBC 2.88 M/mm3 (3.65-5.03) L 12/09/20 04:44 Hgb 9.1 gm/dl (11.8-15.2) L 12/09/20 04:44 Hct 28.2 % (35.5-45.6) L 12/09/20 04:44 MCV 98 fl (84-94) H 12/09/20 04:44 MCH 32 pg (28-32) 12/09/20 04:44 MCHC 32 % (32-34) 12/09/20 04:44 RDW 23.6 % (13.2-15.2) H 12/09/20 04:44 Plt Count 228 K/mm3 (140-440) 12/09/20 04:44 Add Manual Diff Complete 12/05/20 14:14 Total Counted 100 12/05/20 14:14 Seg Neuts % (Manual) 90.0 % (40.0-70.0) H 12/05/20 14:14 Band Neutrophils % 3.0 % 12/05/20 14:14 Lymphocytes % (Manual) 4.0 % (13.4-35.0) L 12/05/20 14:14 Monocytes % (Manual) 2.0 % (0.0-7.3) 12/05/20 14:14 Eosinophils % (Manual) 1.0 % (0.0-4.3) 12/05/20 14:14 Nucleated RBC % Not Reportable 12/05/20 14:14 Seg Neutrophils # Man 10.4 K/mm3 (1.8-7.7) H 12/05/20 14:14 Band Neutrophils # 0.3 K/mm3 12/05/20 14:14 Lymphocytes # (Manual) 0.5 K/mm3 (1.2-5.4) L 12/05/20 14:14 Abs React Lymphs (Man) 0.0 K/mm3 12/05/20 14:14 Monocytes # (Manual) 0.2 K/mm3 (0.0-0.8) 12/05/20 14:14 Eosinophils # (Manual) 0.1 K/mm3 (0.0-0.4) 12/05/20 14:14 Basophils # (Manual) 0.0 K/mm3 (0.0-0.1) 12/05/20 14:14 Metamyelocytes # 0.0 K/mm3 12/05/20 14:14 Myelocytes # 0.0 K/mm3 12/05/20 14:14 Promyelocytes # 0.0 K/mm3 12/05/20 14:14 Blast Cells # 0.0 K/mm3 12/05/20 14:14 WBC Morphology Not Reportable 12/05/20 14:14 Hypersegmented Neuts Not Reportable 12/05/20 14:14 Hyposegmented Neuts Not Reportable 12/05/20 14:14 Hypogranular Neuts Not Reportable 12/05/20 14:14 Smudge Cells Not Reportable 12/05/20 14:14 Toxic Granulation Not Reportable 12/05/20 14:14 Toxic Vacuolation Not Reportable 12/05/20 14:14 Dohle Bodies Not Reportable 12/05/20 14:14 Pelger-Huet Anomaly Not Reportable 12/05/20 14:14 Tamiko Rods Not Reportable 12/05/20 14:14 Platelet Estimate Consistent w auto 12/05/20 14:14 Clumped Platelets Not Reportable 12/05/20 14:14 Plt Clumps, EDTA Not Reportable 12/05/20 14:14 Large Platelets Not Reportable 12/05/20 14:14 Giant Platelets Not Reportable 12/05/20 14:14 Platelet Satelliting Not Reportable 12/05/20 14:14 Plt Morphology Comment Not Reportable 12/05/20 14:14 RBC Morphology Not Reportable 12/05/20 14:14 Dimorphic RBCs Not Reportable 12/05/20 14:14 Polychromasia Not Reportable 12/05/20 14:14 Hypochromasia Few 12/05/20 14:14 Poikilocytosis Not Reportable 12/05/20 14:14 Anisocytosis 1+ 12/05/20 14:14 Microcytosis Not Reportable 12/05/20 14:14 Macrocytosis 1+ 12/05/20 14:14 Spherocytes Not Reportable 12/05/20 14:14 Pappenheimer Bodies Not Reportable 12/05/20 14:14 Sickle Cells Not Reportable 12/05/20 14:14 Target Cells 2+ 12/05/20 14:14 Tear Drop Cells Not Reportable 12/05/20 14:14 Ovalocytes Not Reportable 12/05/20 14:14 Helmet Cells Not Reportable 12/05/20 14:14 Guillen-[place] Bodies Not Reportable 12/05/20 14:14 Tillman Rings Not Reportable 12/05/20 14:14 [place] Cells Not Reportable 12/05/20 14:14 Bite Cells Not Reportable 12/05/20 14:14 Crenated Cell Not Reportable 12/05/20 14:14 Elliptocytes Not Reportable 12/05/20 14:14 Acanthocytes (Spur) Not Reportable 12/05/20 14:14 Rouleaux Not Reportable 12/05/20 14:14 Hemoglobin C Crystals Not Reportable 12/05/20 14:14 Schistocytes Not Reportable 12/05/20 14:14 Malaria parasites Not Reportable 12/05/20 14:14 Parrish Bodies Not Reportable 12/05/20 14:14 Hem Pathologist Commnt No 12/05/20 14:14 PT 20.5 Sec. (12.2-14.9) H 12/08/20 04:10 INR 1.69 (0.87-1.13) H 12/08/20 04:10 APTT 31.8 Sec. (24.2-36.6) 12/05/20 14:14 Sodium 122 mmol/L (137-145) L D 12/10/20 04:27 Potassium 4.5 mmol/L (3.6-5.0) 12/10/20 04:27 Chloride 92.4 mmol/L (98-107) L 12/10/20 04:27 Carbon Dioxide 18 mmol/L (22-30) L 12/10/20 04:27 Anion Gap 16 mmol/L 12/10/20 04:27 BUN 24 mg/dL (9-20) H 12/10/20 04:27 Creatinine < 0.2 mg/dL (0.8-1.3) L 12/10/20 04:27 Estimated GFR > 60 ml/min 12/10/20 04:27 BUN/Creatinine Ratio 120 % 12/10/20 04:27 Glucose 90 mg/dL (75-100) 12/10/20 04:27 Calcium 7.8 mg/dL (8.4-10.2) L 12/10/20 04:27 Phosphorus 2.50 mg/dL (2.5-4.5) 12/06/20 10:01 Magnesium 1.90 mg/dL (1.7-2.3) 12/07/20 04:51 Iron 61 ug/dL (49-181) 12/06/20 13:18 TIBC 326 mcg/dL (250-450) 12/06/20 13:18 Total Bilirubin 18.80 mg/dL (0.1-1.2) H 12/10/20 04:27 Direct Bilirubin 13.1 mg/dL (0-0.2) H 12/07/20 04:51 Indirect Bilirubin 6.1 mg/dL 12/07/20 04:51 AST 80 units/L (5-40) H 12/10/20 04:27 ALT 56 units/L (7-56) 12/10/20 04:27 Alkaline Phosphatase 177 units/L (35-129) H 12/10/20 04:27 Troponin T < 0.010 ng/mL (0.00-0.029) 12/07/20 04:51 Total Protein 4.7 g/dL (6.3-8.2) L 12/10/20 04:27 Albumin 2.8 g/dL (3.9-5) L 12/10/20 04:27 Albumin/Globulin Ratio 1.5 % 12/10/20 04:27 TSH 1.490 mlU/mL (0.270-4.200) 12/09/20 04:44 Urine Color Meredith (Yellow) 12/09/20 15:48 Urine Turbidity Slightly-cloudy (Clear) 12/09/20 15:48 Urine pH 5.0 (5.0-7.0) 12/09/20 15:48 Ur Specific [place] 1.019 (1.003-1.030) 12/09/20 15:48 Urine Protein 30 mg/dl mg/dL (Negative) 12/09/20 15:48 Urine Glucose (UA) Neg mg/dL (Negative) 12/09/20 15:48 Urine Ketones Neg mg/dL (Negative) 12/09/20 15:48 Urine Blood Neg (Negative) 12/09/20 15:48 Urine Nitrite Neg (Negative) 12/09/20 15:48 Urine Bilirubin Mod (Negative) 12/09/20 15:48 Urine Ictotest 2 (Negative) 12/09/20 15:48 Urine Urobilinogen 4.0 mg/dL (<2.0) 12/09/20 15:48 Ur Leukocyte Esterase Neg (Negative) 12/09/20 15:48 Urine WBC (Auto) 31.0 /HPF (0.0-6.0) H 12/09/20 15:48 Urine RBC (Auto) 6.0 /HPF (0.0-6.0) 12/09/20 15:48 U Epithel Cells (Auto) 101.0 /HPF (0-13.0) H 12/09/20 15:48 Urine Bacteria (Auto) 1+ /HPF (Negative) 12/09/20 15:48 Urine WBC Clumps 2+ /HPF 12/09/20 15:48 Hyaline Casts 88 /LPF 12/09/20 15:48 Broad Casts 1 /LPF 12/09/20 15:48 Urine Mucus 2+ /HPF 12/09/20 15:48 Urine Osmolality 573 Mosm/kg 12/06/20 Unknown Urine Sodium 10 mmol/L 12/06/20 Unknown Digoxin 0.3 ng/mL (0.9-2.0) L 12/10/20 04:27 Plasma/Serum Alcohol < 0.01 % (0-0.07) 12/05/20 14:14 Coronavirus (PCR) Negative (Negative) 12/09/20 09:29 Hep Bs Antigen Nonreactive (Negative) 12/06/20 13:18 Hepatitis C Antibody Non-reactive (NonReactive) 12/06/20 13:18 Manjarrez/IV: Voiding Method Toilet Active Medications - Current Medications Current Medications: Generic Name Dose Route Start Last Admin Trade Name Freq PRN Reason Stop Dose Admin Albumin Human 25 gm 12/10/20 11:00 12/10/20 10:56 Albumin Human 25% (25 Gm/100 Ml) Inj IV 12/10/20 22:01 25 gm BID WESLEY Administration Albuterol 2.5 mg 12/05/20 17:11 12/09/20 20:33 Albuterol 2.5 Mg/3 Ml Nebu IH 2.5 mg Q4HRT PRN Administration Shortness Of Breath Digoxin 0.125 mg 12/08/20 12:00 12/10/20 09:48 Digoxin 0.125 Mg Tab PO 0.125 mg DAILY WESLEY Administration Folic Acid 1 mg 12/06/20 10:00 12/10/20 09:48 Folic Acid 1 Mg Tab PO 1 mg QDAY WESLEY Administration Furosemide 20 mg 12/10/20 11:00 12/10/20 10:56 Furosemide 20 Mg/2 Ml Inj IV 12/10/20 22:01 20 mg BID WESLEY Administration Hydromorphone HCl 0.5 mg 12/05/20 17:11 12/06/20 17:39 Hydromorphone 1 Mg/1 Ml Inj IV 0.5 mg Q12H PRN Administration Pain , Severe (7-10) Ceftriaxone Sodium 1 gm in 50 mls @ 100 mls/hr 12/10/20 08:00 12/10/20 09:47 Rocephin/Ns 1 Gm/50 Ml IV 100 mls/hr Q24H WESLEY Administration Protocol Lactulose 20 gm 12/10/20 14:00 Lactulose 20 Gm/30 Ml Oral Liqd PO TID WESLEY Lorazepam 2 mg 12/05/20 17:13 12/10/20 00:19 Lorazepam 2 Mg/Ml Vial IV 2 mg Q1HR PRN Administration Ananth 8-15 Metoprolol Tartrate 12.5 mg 12/08/20 12:00 12/10/20 09:52 Metoprolol Tartrate 25 Mg Tab PO 12.5 mg BID WESLEY Administration Morphine Sulfate 1 mg 12/05/20 17:11 12/08/20 01:48 Morphine 2 Mg/1 Ml Inj IV 1 mg Q8H PRN Administration Pain, Moderate (4-6) Multivitamins 1 each 12/06/20 10:00 12/10/20 09:48 Multivitamins ,Therapeutic Tab PO 1 each QDAY WESLEY Administration Ondansetron HCl 4 mg 12/05/20 17:11 Ondansetron 4 Mg/2 Ml Inj IV Q8H PRN Nausea And Vomiting Phytonadione 5 mg 12/09/20 11:00 12/10/20 09:53 Phytonadione 10 Mg/1 Ml (Adult Only)*Injection* SUB-Q 12/11/20 10:01 5 mg DAILY WESLEY Administration Prednisolone Sodium Phosphate 40 mg 12/08/20 12:00 12/10/20 09:55 Prednisolone Sod Phosphate 15 Mg/5 Ml Oral Liqd PO 40 mg QDAY WESLEY Administration Sodium Chloride 10 ml 12/05/20 22:00 12/10/20 09:53 Sodium Chloride 0.9% 10 Ml Flush Syringe IV 10 ml BID WESLEY Administration Sodium Chloride 10 ml 12/05/20 17:11 Sodium Chloride 0.9% 10 Ml Flush Syringe IV PRN PRN LINE FLUSH Thiamine HCl 100 mg 12/06/20 10:00 12/10/20 09:48 Thiamine 100 Mg Tab PO 100 mg QDAY WESLEY Administration
--- NOTE | 2020-12-10 13:33 | Progress Note ---
Assessment and Plan HFrEF Dilated cardiomyopathy Chest pain, intermittent * Patient is currently chest pain-free. Twelve-lead reviewed shows atrial fibrillation with no acute ischemic changes. Troponin is negative x3. AMI ruled out * Echo 12/06/2020-EF 10 to 15% left ventricular diastolic function is indeterminate, right ventricle is mild to moderately dilated, right ventricle is severely hypokinetic, left atrium is severely dilated, mild pulmonary hypertension, mild tricuspid regurgitation, IVC is dilated IVC collapses with >50% inspiration. * Hold MACHELLE/ARB in setting of soft BP A. fib RVR * Patient converted so sinus rhythm over weekend. Currently sinus 70s on monitor * Contiue digoxin 0.125mg PO QD * No beta-blockers at this time due to soft blood pressure * Recommend starting Eliquis once liver status stable. Hyponatremia/hypomagnesemia Volume Overload * Electrolytes Currently being repleted. * 3+ bilateral lower extremity edema noted. * Management per nephrology Alcoholic Liver Disease [facility] protocol for alcohol dependence * GI following Continue digoxin. Volume optimization once hyponatremia corrected. Will continue to follow. This patient was seen in conjunction with Dr Austin who agrees with this assessment plan of care - Patient Problems (1) HFrEF (heart failure with reduced ejection fraction) Current Visit: Yes Status: Acute (2) Dilated cardiomyopathy Current Visit: Yes Status: Acute (3) Atrial fibrillation with RVR Current Visit: Yes Status: Acute (4) Chest pain Current Visit: Yes Status: Resolved (5) Hypomagnesemia Current Visit: Yes Status: Acute (6) Hyponatremia Current Visit: Yes Status: Acute (7) Jaundice Current Visit: Yes Status: Acute (8) Alcohol dependence Current Visit: Yes Status: Chronic (9) Alcoholic liver disease Current Visit: Yes Status: Chronic Subjective Date of service: 12/10/20 Principal diagnosis: HFrEF, Afib w/RVR, Alcoholic liver disease Interval history: Patient restrained in bed. Reports no chest pain Sinus 70s on monitor Objective Last Vital Signs Temp 97.9 F 12/10/20 10:56 Pulse 61 12/10/20 10:56 Resp 20 12/10/20 10:56 BP 94/61 12/10/20 10:56 Pulse Ox 94 12/10/20 10:56 - Physical Examination General: No Apparent Distress HEENT: Positive: EOMI, Normocephaly, Mucus Membranes Moist Neck: Positive: neck supple, trachea midline, JVD/HJR Cardiac: Positive: Reg Rate and Rhythm Lungs: Positive: Normal Breath Sounds Neuro: Positive: Grossly Intact Abdomen: Positive: Soft, Active Bowel Sounds. Negative: Tender Skin: Positive: Clear Musculoskeletal: Normal Range of Motion Extremities: Present: upper extr. pulses, +3 Edema (Bilateral lower extremities) - Labs and Meds Cardiac Enzymes 12/10/20 Range/Units 04:27 AST 80 H (5-40) units/L Comprehensive Metabolic Panel 12/10/20 Range/Units 04:27 Sodium 122 L D (137-145) mmol/L Potassium 4.5 (3.6-5.0) mmol/L Chloride 92.4 L (98-107) mmol/L Carbon Dioxide 18 L (22-30) mmol/L BUN 24 H (9-20) mg/dL Creatinine < 0.2 L (0.8-1.3) mg/dL Glucose 90 (75-100) mg/dL Calcium 7.8 L (8.4-10.2) mg/dL AST 80 H (5-40) units/L ALT 56 (7-56) units/L Alkaline Phosphatase 177 H (35-129) units/L Total Protein 4.7 L (6.3-8.2) g/dL Albumin 2.8 L (3.9-5) g/dL - Imaging and Cardiology EKG: report reviewed, image reviewed Echo: report reviewed - Telemetry EKG Rhythm: Sinus Rhythm - EKG Sinus rhythms and dysrhythmias: sinus rhythm
--- NOTE | 2020-12-10 14:33 | Ultrasound Report ---
US abdomen limited INDICATION / CLINICAL INFORMATION: only diagnostic paracentesis with minimal amt. COMPARISON: None available. FINDINGS: Intra-abdominal ascites is noted with the largest pocket noted in the left lower quadrant. This pocke t of fluid is relatively small. Ultrasound imaging was performed in preparation for paracentesis whic h was not performed secondary to patient's inability to cooperate/consent. IMPRESSION: 1. Intra-abdominal ascites Signer Name: Frank Caldwell DO Signed: 12/10/2020 2:29 PM Workstation Name: [id number]
[2020-12-10 15:27] LABS: Blood Urea Nitrogen 22 mg/dL (9-20); Hemolysis Index 36
[2020-12-10 15:32] LABS: BUN/Creatinine Ratio 110
[2020-12-10] MEDS: LACTULOSE 20 GM/30 ML ORAL LIQD PO SCH ×2 (16:31→21:19)
[2020-12-10] MEDS: HEPARIN 5,000 UNIT/1 ML VIAL SUB-Q SCH (21:19)
[2020-12-10 22:57] LABS: Blood Urea Nitrogen 19 mg/dL (9-20); Calcium 7.8 mg/dL (8.4-10.2); Hemolysis Index 156
[2020-12-10 23:03] LABS: BUN/Creatinine Ratio 95
[2020-12-11] MEDS: HEPARIN 5,000 UNIT/1 ML VIAL SUB-Q SCH ×3 (05:00→22:28)
[2020-12-11 05:58] LABS: Hematocrit 30.9 % (35.5-45.6); Hemoglobin 9.9 gm/dl (11.8-15.2); Mean Corpuscular HGB Conc 32 % (32-34); Mean Corpuscular Volume 98 fl (84-94); Platelet Count 147 K/mm3 (140-440); Red Blood Count 3.15 M/mm3 (3.65-5.03)
[2020-12-11 05:59] LABS: Alanine Aminotransferase 49 units/L (7-56); Albumin 2.9 g/dL (3.9-5); Blood Urea Nitrogen 17 mg/dL (9-20); Calcium 7.6 mg/dL (8.4-10.2); Hemolysis Index 5
[2020-12-11 06:00] LABS: Red Cell Distribution Width 24.5 % (13.2-15.2)
[2020-12-11 06:08] LABS: BUN/Creatinine Ratio 85
--- NOTE | 2020-12-11 08:27 | Gastroenterology Progress Note ---
Assessment and Plan 50 yo male admitted for anasarca, afib with RVR, CHF with EF 10-15 % on TTE, and severe hyponatremia. Rec - recommend diagnostic paracentesis once able to obtain consent -Optimize cardiac status -For encephalopathy continue lactulose, if pt not tolerating oral can switch to rectal route - due to elevated Maddrey score will continue current dose prednisilone for now and monitor response - avoid hepato toxic medications. - Patient Problems (1) Jaundice Current Visit: Yes Status: Acute (2) Hyponatremia Current Visit: Yes Status: Acute (3) Alcohol dependence Current Visit: Yes Status: Chronic Subjective Date of service: 12/11/20 Principal diagnosis: HFrEF, Afib w/RVR, Alcoholic liver disease Interval history: Patient is very lethargic and not responding to my verbal questions Objective - Constitutional Vitals: Temp Pulse Resp BP Pulse Ox 97.4 F L 57 L 20 135/87 98 12/11/20 03:42 12/11/20 03:42 12/11/20 03:42 12/11/20 03:42 12/11/20 07:56 General appearance: no acute distress, obese - Gastrointestinal General gastrointestinal: Present: soft - Labs CBC & Chem 7: 12/11/20 05:03 12/11/20 05:03 Labs: Laboratory Results - last 24 hr 12/06/20 12/06/20 12/10/20 13:18 13:18 14:44 WBC RBC Hgb Hct MCV MCH MCHC RDW Plt Count Sodium 127 L Potassium 3.8 Chloride 95.1 L Carbon Dioxide 19 L Anion Gap 17 BUN 22 H Creatinine < 0.2 L Estimated GFR > 60 BUN/Creatinine Ratio 110 Glucose 90 Calcium 8.0 L Total Bilirubin AST ALT Alkaline Phosphatase Total Protein Albumin Albumin/Globulin Ratio Hepatitis A Ab Total Reactive H Hep Bs Antibody, Quant <5 L 12/10/20 12/11/20 12/11/20 22:23 05:03 05:03 WBC 10.3 RBC 3.15 L Hgb 9.9 L Hct 30.9 L MCV 98 H MCH 32 MCHC 32 RDW 24.5 H Plt Count 147 Sodium 126 L 128 L Potassium 4.1 3.2 L D Chloride 94.3 L 96.0 L Carbon Dioxide 21 L 22 Anion Gap 15 13 BUN 19 17 Creatinine < 0.2 L < 0.2 L Estimated GFR > 60 > 60 BUN/Creatinine Ratio 95 85 Glucose 99 97 Calcium 7.8 L 7.6 L Total Bilirubin 16.60 H AST 57 H ALT 49 Alkaline Phosphatase 154 H Total Protein 4.5 L Albumin 2.9 L Albumin/Globulin Ratio 1.8 Hepatitis A Ab Total Hep Bs Antibody, Quant
--- NOTE | 2020-12-11 08:31 | Progress Note ---
Assessment and Plan - Patient Problems (1) Acute kidney injury (ASHLYN) with acute tubular necrosis (ATN) Current Visit: Yes Status: Acute Plan to address problem: Acute kidney injury secondary to prerenal azotemia. Resolving with hydration. (2) Acute HFrEF (heart failure with reduced ejection fraction) Current Visit: Yes Status: Acute Plan to address problem: Acute systolic congestive heart failure patient with significant ascites, scrotal edema, +4 lower extremity pitting edema. Patient ejection fraction 10 to 15% Continue volume diuresis. Patient been ruled out for acute coronary syndrome negative troponin x3. (3) Atrial fibrillation with RVR Current Visit: Yes Status: Acute Plan to address problem: Patient is now converted medically to normal sinus rhythm. Continue digoxin. Beta-patricio and calcium channel blockers on hold secondary to hypotension. May initiate 1 AV jim blocking agent with blood pressure stabilizes. (4) Alcohol dependence Current Visit: Yes Status: Chronic Plan to address problem: Patient on CIWA protocol. Remains restrained. Thiamine, folic acid Assist with normal sleep and behavior. Continue restraints for now. (5) Alcoholic liver disease Current Visit: Yes Status: Chronic Plan to address problem: Patient alcoholic liver disease elevated transaminases. CT scan abdomen pelvis. Started on prednisone. Subjective Date of service: 12/11/20 Principal diagnosis: HFrEF, Afib w/RVR, Alcoholic liver disease Interval history: 50 YO Male with ETOH Dependence presents to ED for evaluation. Patient reports "I feel short of breath". Patient states that he has experienced shortness of breath, intermittent chest palpitations, as well as chest discomfort over the past 2 days with increased duration and frequency of the aforementioned symptoms over the same timeframe. EMS was notified and upon arrival the patient was found to be in distress and subsequently transported to [facility] for further care and evaluation of the aforementioned symptoms. The patient family reports that patient has been "feeling sick" and has been drinking a lot of alcohol over the past 1 week. Patient seen and evaluated in the emergency department. All lab and imaging studies reviewed. 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 Patient treated with medical cardioversion 12/06/20 Patient with atrial fibrillation with RVR, severe hyponatremia, alcoholic liver disease. Consulted Cardiology, GI and Nephrology. Started on Amiodarone, iv fluids, Thiamine Sodium 114 12/07/20 Patient with atrial fibrillation with RVR, severe hyponatremia, alcoholic liver disease. Cardiology, GI and Nephrology following. Started on Amiodarone, iv fluids, Thiamine Sodium 117 today, slight increased 12/08/20 Patient with atrial fibrillation with RVR, severe hyponatremia, alcoholic liver disease. Cardiology, GI and Nephrology following. On Amiodarone, iv fluids, Thiamine Sodium 112 today, worsening I discussed case with GI. She is contemplating poss starting steroids. Will order Coronavirus PCR as suggested by GI. Repeat CXR today. 12/09/20 Patient with atrial fibrillation with RVR, severe hyponatremia, alcoholic liver disease. Cardiology, GI and Nephrology following. On Amiodarone, iv fluids, Thiamine Sodium 114 today, Hyperkalemia with Potassium 5.4. Give kayexalate I discussed case with GI. She has started him on Prednisone. Ordered Coronavirus PCR as suggested by GI. Place manjarrez as Nurse had difficulty obtaining urine because of edema of penis, scrotum. 12/10/20 Patient with atrial fibrillation with RVR, severe hyponatremia, alcoholic liver disease. Cardiology, GI and Nephrology following. iv fluids, Thiamine Sodium improving, 122 today, Hyperkalemia now resolved after kayexalate I discussed case with GI. She has started him on Prednisone for alcoholic hepatitis Ordered Coronavirus PCR as suggested by GI, negative Covid. Placed manjarrez as Nurse had difficulty obtaining urine because of edema of penis, scrotum. 12/11/2020. Patient rate well controlled at this particular time. Patient in bed somewhat agitated in restraints. Initial exam consistent with delirium tremors alcohol withdrawal Objective - Constitutional Vitals: Vital Signs - 12hr 12/10/20 12/10/20 12/10/20 21:34 22:00 23:14 Temperature 98.2 F Pulse Rate 63 Respiratory 24 19 Rate Blood Pressure 138/118 O2 Sat by Pulse 97 95 99 Oximetry 12/11/20 12/11/20 03:42 07:56 Temperature 97.4 F L Pulse Rate 57 L Respiratory 20 Rate Blood Pressure 135/87 O2 Sat by Pulse 100 98 Oximetry General appearance: Present: mild distress, other (Tremors restraints) - EENT ENT: other (Erythematous conjunctiva) - Respiratory Respiratory effort: normal Respiratory: bilateral: CTA - Cardiovascular Rhythm: other (Tachycardia) Extremities: pulses intact, No edema, normal color, Full ROM Extremity abnormal: edema - Gastrointestinal General gastrointestinal: Present: soft, non-tender, non-distended, normal bowel sounds - Musculoskeletal Musculoskeletal: generalized weakness - Neurologic Neurologic: moves all extremities - Psychiatric Psychiatric: agitated - Labs CBC & Chem 7: 12/11/20 05:03 12/11/20 05:03 Labs: Abnormal lab results 12/06/20 12/06/20 12/10/20 Range/Units 13:18 13:18 14:44 RBC (3.65-5.03) M/mm3 Hgb (11.8-15.2) gm/dl Hct (35.5-45.6) % MCV (84-94) fl RDW (13.2-15.2) % Sodium 127 L (137-145) mmol/L Potassium (3.6-5.0) mmol/L Chloride 95.1 L (98-107) mmol/L Carbon Dioxide 19 L (22-30) mmol/L BUN 22 H (9-20) mg/dL Creatinine < 0.2 L (0.8-1.3) mg/dL Calcium 8.0 L (8.4-10.2) mg/dL Total Bilirubin (0.1-1.2) mg/dL AST (5-40) units/L Alkaline Phosphatase (35-129) units/L Total Protein (6.3-8.2) g/dL Albumin (3.9-5) g/dL Hepatitis A Ab Total Reactive H (Nonreactive) Hep Bs Antibody, Quant <5 L (>=10) mIU/mL 12/10/20 12/11/20 12/11/20 Range/Units 22:23 05:03 05:03 RBC 3.15 L (3.65-5.03) M/mm3 Hgb 9.9 L (11.8-15.2) gm/dl Hct 30.9 L (35.5-45.6) % MCV 98 H (84-94) fl RDW 24.5 H (13.2-15.2) % Sodium 126 L 128 L (137-145) mmol/L Potassium 3.2 L D (3.6-5.0) mmol/L Chloride 94.3 L 96.0 L (98-107) mmol/L Carbon Dioxide 21 L (22-30) mmol/L BUN (9-20) mg/dL Creatinine < 0.2 L < 0.2 L (0.8-1.3) mg/dL Calcium 7.8 L 7.6 L (8.4-10.2) mg/dL Total Bilirubin 16.60 H (0.1-1.2) mg/dL AST 57 H (5-40) units/L Alkaline Phosphatase 154 H (35-129) units/L Total Protein 4.5 L (6.3-8.2) g/dL Albumin 2.9 L (3.9-5) g/dL Hepatitis A Ab Total (Nonreactive) Hep Bs Antibody, Quant (>=10) mIU/mL HEART Score - HEART Score Troponin: Troponin T < 0.010 ng/mL (0.00-0.029) 12/07/20 04:51
--- NOTE | 2020-12-11 09:41 | Progress Note ---
Assessment and Plan Impression * Hyponatremia, hypervolemic * Alcoholic hepatitis * Cardiomyopathy - EF 10-15% * Transamintis * Hyperbilirubinemia * Anasarca * Alcohol abuse * Atrial fibrillation Plan: * Patient w/ good UOP > 4 liters - Continue Lasix 20mg IV BID w/ Albumim * Sodium improved - continue close monitoring * KCl 40meq ordered * GI recommendations noted * Rate control per cardiology * CIWA protocol per primary team * Replete lytes prn Subjective Date of service: 12/11/20 Principal diagnosis: HFrEF, Afib w/RVR, Alcoholic liver disease Interval history: No acute events overnight Objective - Vital Signs Vital signs: Vital Signs - 12hr 12/10/20 12/10/20 12/11/20 22:00 23:14 03:42 Temperature 98.2 F 97.4 F L Pulse Rate 63 57 L Respiratory 24 19 20 Rate Blood Pressure 138/118 135/87 O2 Sat by Pulse 95 99 100 Oximetry 12/11/20 12/11/20 07:56 08:23 Temperature 97.4 F L Pulse Rate 70 Respiratory 18 Rate Blood Pressure 128/93 O2 Sat by Pulse 98 100 Oximetry - General Appearance General appearance: well-developed, well-nourished EENT: ATNC Respiratory: Present: Clear to Ascultation Cardiology: regular, S1S2, other (generalized edema/anasarca) Gastrointestinal: no tenderness, no distended, other (flank edema) Integumentary: other (jaundiced) Neurologic: other (alert) Musculoskeletal: other (2+ edema) - Lab 12/11/20 05:03 12/11/20 05:03 Most recent lab results Calcium 7.6 mg/dL (8.4-10.2) L 12/11/20 05:03 Phosphorus 2.50 mg/dL (2.5-4.5) 12/06/20 10:01 Magnesium 1.90 mg/dL (1.7-2.3) 12/07/20 04:51 Urine Sodium 10 mmol/L 12/06/20 Unknown Medications & Allergies - Medications Allergies/Adverse Reactions: Allergies No Known Allergies Allergy (Unverified 12/05/20 15:43) Home Medications: Home Medications Medication Instructions Recorded Confirmed Last Taken Type No Known Home Medications [No 12/08/20 12/08/20 Unknown History Reported Home Medications] Active Medications: Generic Name Dose Route Start Last Admin Trade Name Freq PRN Reason Stop Dose Admin Albumin Human 25 gm 12/11/20 10:00 Albumin Human 25% (25 Gm/100 Ml) Inj IV BID WESLEY Albuterol 2.5 mg 12/05/20 17:11 12/09/20 20:33 Albuterol 2.5 Mg/3 Ml Nebu IH 2.5 mg Q4HRT PRN Administration Shortness Of Breath Digoxin 0.125 mg 12/08/20 12:00 12/10/20 09:48 Digoxin 0.125 Mg Tab PO 0.125 mg DAILY WESLEY Administration Folic Acid 1 mg 12/06/20 10:00 12/10/20 09:48 Folic Acid 1 Mg Tab PO 1 mg QDAY WESLEY Administration Furosemide 20 mg 12/11/20 10:00 Furosemide 20 Mg/2 Ml Inj IV BID WESLEY Heparin Sodium (Porcine) 5,000 unit 12/10/20 22:00 12/11/20 05:00 Heparin 5,000 Unit/1 Ml Vial SUB-Q 5,000 unit Q8HR WESLEY Administration Hydromorphone HCl 0.5 mg 12/05/20 17:11 12/06/20 17:39 Hydromorphone 1 Mg/1 Ml Inj IV 0.5 mg Q12H PRN Administration Pain , Severe (7-10) Ceftriaxone Sodium 1 gm in 50 mls @ 100 mls/hr 12/10/20 08:00 12/10/20 09:47 Rocephin/Ns 1 Gm/50 Ml IV 100 mls/hr Q24H WESLEY Administration Protocol Lactulose 20 gm 12/10/20 14:00 12/10/20 21:19 Lactulose 20 Gm/30 Ml Oral Liqd PO 20 gm TID WESLEY Administration Lorazepam 2 mg 12/05/20 17:13 12/10/20 00:19 Lorazepam 2 Mg/Ml Vial IV 2 mg Q1HR PRN Administration CIPARESH-Ar 8-15 Metoprolol Tartrate 12.5 mg 12/08/20 12:00 12/10/20 21:20 Metoprolol Tartrate 25 Mg Tab PO 12.5 mg BID WESLEY Administration Morphine Sulfate 1 mg 12/05/20 17:11 12/08/20 01:48 Morphine 2 Mg/1 Ml Inj IV 1 mg Q8H PRN Administration Pain, Moderate (4-6) Multivitamins 1 each 12/06/20 10:00 12/10/20 09:48 Multivitamins ,Therapeutic Tab PO 1 each QDAY WESLEY Administration Ondansetron HCl 4 mg 12/05/20 17:11 Ondansetron 4 Mg/2 Ml Inj IV Q8H PRN Nausea And Vomiting Phytonadione 5 mg 12/09/20 11:00 12/10/20 09:53 Phytonadione 10 Mg/1 Ml (Adult Only)*Injection* SUB-Q 12/11/20 10:01 5 mg DAILY WESLEY Administration Prednisolone Sodium Phosphate 40 mg 12/08/20 12:00 12/10/20 09:55 Prednisolone Sod Phosphate 15 Mg/5 Ml Oral Liqd PO 40 mg QDAY WESLEY Administration Sodium Chloride 10 ml 12/05/20 22:00 12/10/20 21:19 Sodium Chloride 0.9% 10 Ml Flush Syringe IV 10 ml BID WESLEY Administration Sodium Chloride 10 ml 12/05/20 17:11 Sodium Chloride 0.9% 10 Ml Flush Syringe IV PRN PRN LINE FLUSH Thiamine HCl 100 mg 12/06/20 10:00 12/10/20 09:48 Thiamine 100 Mg Tab PO 100 mg QDAY WESLEY Administration
[2020-12-11] MEDS ORDERED: POTASSIUM CHLORIDE ER 20 MEQ TAB PO NR (10:08)
[2020-12-11] MEDS: FUROSEMIDE 20 MG/2 ML INJ IV SCH ×2 (11:36→22:28)
[2020-12-11] MEDS: prednisoLONE SOD PHOSPHATE 15 MG/5 ML ORAL LIQD PO SCH (11:39)
[2020-12-11] MEDS: LACTULOSE 20 GM/30 ML ORAL LIQD PO SCH ×3 (11:44→22:29)
[2020-12-11] MEDS: cefTRIAXone/NS 1 GM/50 ML 1 GM/50 ML BAG IV SCH (11:45)
[2020-12-11] MEDS: FOLIC ACID 1 MG TAB PO SCH (11:48)
[2020-12-11] MEDS: METOPROLOL TARTRATE 25 MG TAB PO SCH ×2 (11:49→22:28)
[2020-12-11] MEDS: THIAMINE 100 MG TAB PO SCH (11:49)
[2020-12-11] MEDS: DIGOXIN 0.125 MG TAB PO SCH (11:50)
[2020-12-11] MEDS: PHYTONADIONE 10 MG/1 ML (ADULT ONLY)*INJECTION SUB-Q SCH (11:51)
[2020-12-11] MEDS: MULTIVITAMINS ,THERAPEUTIC TAB PO SCH (11:53)
--- NOTE | 2020-12-11 13:53 | Progress Note ---
Assessment and Plan HFrEF Dilated cardiomyopathy Chest pain, intermittent * Patient is currently chest pain-free. Twelve-lead reviewed shows atrial fibrillation with no acute ischemic changes. Troponin is negative x3. AMI ruled out * Echo 12/06/2020-EF 10 to 15% left ventricular diastolic function is indeterminate, right ventricle is mild to moderately dilated, right ventricle is severely hypokinetic, left atrium is severely dilated, mild pulmonary hypertension, mild tricuspid regurgitation, IVC is dilated IVC collapses with >50% inspiration. * Hold MACHELLE/ARB in setting of soft BP A. fib RVR * Patient converted to sinus rhythm over weekend. Currently sinus 70s on monitor * Contiue digoxin 0.125mg PO QD. Recheck digoxin level * No beta-blockers at this time due to soft blood pressure * Recommend starting Eliquis once liver status stable. Hyponatremia/hypomagnesemia Volume Overload * Electrolytes Currently being repleted. * 3+ bilateral lower extremity edema noted. * Management per nephrology Alcoholic Liver Disease [facility] protocol for alcohol dependence * GI following Continue digoxin. Will continue to follow. This patient was seen in conjunction with Dr Austin who agrees with this assessment plan of care - Patient Problems (1) HFrEF (heart failure with reduced ejection fraction) Current Visit: Yes Status: Acute (2) Dilated cardiomyopathy Current Visit: Yes Status: Acute (3) Atrial fibrillation with RVR Current Visit: Yes Status: Acute (4) Chest pain Current Visit: Yes Status: Resolved (5) Hypomagnesemia Current Visit: Yes Status: Acute (6) Hyponatremia Current Visit: Yes Status: Acute (7) Jaundice Current Visit: Yes Status: Acute (8) Alcohol dependence Current Visit: Yes Status: Chronic (9) Alcoholic liver disease Current Visit: Yes Status: Chronic Subjective Date of service: 12/11/20 Principal diagnosis: HFrEF, Afib w/RVR, Alcoholic liver disease Interval history: Patient restrained in bed. Reports no chest pain Sinus 70s on monitor with no events Objective Vital Signs Temp Pulse Pulse Resp BP BP Pulse Ox 12/11/20 12:04 98.7 F 76 20 133/112 91 12/11/20 11:50 99 H 12/11/20 11:49 99 H 12/11/20 08:23 97.4 F L 70 18 128/93 100 12/11/20 07:56 98 12/11/20 03:42 97.4 F L 57 L 20 135/87 100 12/10/20 23:14 98.2 F 63 19 138/118 99 12/10/20 22:00 24 95 12/10/20 21:34 97 12/10/20 20:10 67 161/74 100 12/10/20 19:42 97.7 F 69 19 85/61 100 12/10/20 17:24 60 20 95 12/10/20 15:46 98.1 F 60 18 130/65 100 - Physical Examination General: No Apparent Distress HEENT: Positive: EOMI, Normocephaly, Mucus Membranes Moist Neck: Positive: neck supple, trachea midline, JVD/HJR Cardiac: Positive: Reg Rate and Rhythm Lungs: Positive: Decreased Breath Sounds Neuro: Positive: Grossly Intact Abdomen: Positive: Soft, Active Bowel Sounds. Negative: Tender Skin: Positive: Clear Musculoskeletal: Normal Range of Motion Extremities: Present: upper extr. pulses, +3 Edema (Bilateral lower extremities) - Labs and Meds Cardiac Enzymes 12/11/20 Range/Units 05:03 AST 57 H (5-40) units/L CBC 12/11/20 Range/Units 05:03 WBC 10.3 (4.5-11.0) K/mm3 RBC 3.15 L (3.65-5.03) M/mm3 Hgb 9.9 L (11.8-15.2) gm/dl Hct 30.9 L (35.5-45.6) % Plt Count 147 (140-440) K/mm3 Comprehensive Metabolic Panel 12/10/20 12/10/20 12/11/20 Range/Units 14:44 22:23 05:03 Sodium 127 L 126 L 128 L (137-145) mmol/L Potassium 3.8 4.1 3.2 L D (3.6-5.0) mmol/L Chloride 95.1 L 94.3 L 96.0 L (98-107) mmol/L Carbon Dioxide 19 L 21 L 22 (22-30) mmol/L BUN 22 H 19 17 (9-20) mg/dL Creatinine < 0.2 L < 0.2 L < 0.2 L (0.8-1.3) mg/dL Glucose 90 99 97 (75-100) mg/dL Calcium 8.0 L 7.8 L 7.6 L (8.4-10.2) mg/dL AST 57 H (5-40) units/L ALT 49 (7-56) units/L Alkaline Phosphatase 154 H (35-129) units/L Total Protein 4.5 L (6.3-8.2) g/dL Albumin 2.9 L (3.9-5) g/dL - Imaging and Cardiology EKG: report reviewed, image reviewed Echo: report reviewed - Telemetry EKG Rhythm: Sinus Rhythm - EKG Sinus rhythms and dysrhythmias: sinus rhythm
[2020-12-11] MEDS: ALBUMIN HUMAN 25% (25 GM/100 ML) INJ IV SCH ×2 (15:50→22:40)
[2020-12-12] MEDS: LORazepam 2 MG/ML VIAL IV PRN ×4 (03:24→23:05)
[2020-12-12] MEDS: HEPARIN 5,000 UNIT/1 ML VIAL SUB-Q SCH ×3 (06:09→22:51)
[2020-12-12 08:47] LABS: Blood Urea Nitrogen 14 mg/dL (9-20); Calcium 8.3 mg/dL (8.4-10.2); Hemolysis Index 7
--- NOTE | 2020-12-12 08:50 | Progress Note ---
Assessment and Plan - Patient Problems (1) Acute kidney injury (ASHLYN) with acute tubular necrosis (ATN) Current Visit: Yes Status: Acute Plan to address problem: Acute kidney injury secondary to prerenal azotemia. Resolving with hydration. Secondary to vasomotor nephropathy. (2) Acute HFrEF (heart failure with reduced ejection fraction) Current Visit: Yes Status: Acute Plan to address problem: Acute systolic congestive heart failure patient with significant ascites, scrotal edema, +4 lower extremity pitting edema. Patient ejection fraction 10 to 15% Continue volume diuresis. Patient been ruled out for acute coronary syndrome negative troponin x3. Continue to diuresis tolerated. (3) Atrial fibrillation with RVR Current Visit: Yes Status: Acute Plan to address problem: Patient is now converted medically to normal sinus rhythm. Continue digoxin. Beta-patricio and calcium channel blockers on hold secondary to hypotension. May initiate 1 AV jim blocking agent with blood pressure stabilizes. (4) Alcohol dependence Current Visit: Yes Status: Chronic Plan to address problem: Patient on CIWA protocol. Remains restrained. Thiamine, folic acid Assist with normal sleep and behavior. Continue restraints for now. (5) Alcoholic liver disease Current Visit: Yes Status: Chronic Plan to address problem: Patient alcoholic liver disease elevated transaminases. CT scan abdomen pelvis. Started on prednisone. Discussed case with GI. Nothing else to add at this time. Subjective Date of service: 12/12/20 Principal diagnosis: HFrEF, Afib w/RVR, Alcoholic liver disease Interval history: 50 YO Male with ETOH Dependence presents to ED for evaluation. Patient reports "I feel short of breath". Patient states that he has experienced shortness of breath, intermittent chest palpitations, as well as chest discomfort over the past 2 days with increased duration and frequency of the aforementioned symptoms over the same timeframe. EMS was notified and upon arrival the patient was found to be in distress and subsequently transported to [facility] for further care and evaluation of the aforementioned symptoms. The patient family reports that patient has been "feeling sick" and has been drinking a lot of alcohol over the past 1 week. Patient seen and evaluated in the emergency department. All lab and imaging studies reviewed. 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 Patient treated with medical cardioversion 12/06/20 Patient with atrial fibrillation with RVR, severe hyponatremia, alcoholic liver disease. Consulted Cardiology, GI and Nephrology. Started on Amiodarone, iv fluids, Thiamine Sodium 114 12/07/20 Patient with atrial fibrillation with RVR, severe hyponatremia, alcoholic liver disease. Cardiology, GI and Nephrology following. Started on Amiodarone, iv fluids, Thiamine Sodium 117 today, slight increased 12/08/20 Patient with atrial fibrillation with RVR, severe hyponatremia, al coholic liver disease. Cardiology, GI and Nephrology following. On Amiodarone, iv fluids, Thiamine Sodium 112 today, worsening I discussed case with GI. She is contemplating poss starting steroids. Will order Coronavirus PCR as suggested by GI. Repeat CXR today. 12/09/20 Patient with atrial fibrillation with RVR, severe hyponatremia, alcoholic liver disease. Cardiology, GI and Nephrology following. On Amiodarone, iv fluids, Thiamine Sodium 114 today, Hyperkalemia with Potassium 5.4. Give kayexalate I discussed case with GI. She has started him on Prednisone. Ordered Coronavirus PCR as suggested by GI. Place manjarrez as Nurse had difficulty obtaining urine because of edema of penis, scrotum. 12/10/20 Patient with atrial fibrillation with RVR, severe hyponatremia, alcoholic liver disease. Cardiology, GI and Nephrology following. iv fluids, Thiamine Sodium improving, 122 today, Hyperkalemia now resolved after kayexalate I discussed case with GI. She has started him on Prednisone for alcoholic hepatitis Ordered Coronavirus PCR as suggested by GI, negative Covid. Placed manjarrez as Nurse had difficulty obtaining urine because of edema of penis, scrotum. 12/11/2020. Patient rate well controlled at this particular time. Patient in bed somewhat agitated in restraints. Initial exam consistent with delirium tremors alcohol withdrawal 12/12/2020. Patient remains restrained. Signs and symptoms as well as presentation consistent with alcohol withdrawal. No new events overnight. No rhythm changes over p.m. Objective - Constitutional Vitals: Vital Signs - 12hr 12/11/20 12/11/20 12/11/20 21:43 22:00 22:28 Temperature Pulse Rate 69 82 Respiratory 24 Rate Blood Pressure 119/64 O2 Sat by Pulse 100 95 Oximetry 12/11/20 12/12/20 12/12/20 23:20 04:01 04:38 Temperature 98.7 F 98.0 F Pulse Rate 67 44 L 68 Respiratory 18 20 Rate Blood Pressure 121/94 112/92 O2 Sat by Pulse 100 100 Oximetry General appearance: Present: no acute distress, other (Restrained agitated with tremors.) - EENT Eyes: PERRL, EOM intact - Respiratory Respiratory: bilateral: rales, rhonchi - Cardiovascular Rhythm: regular Extremities: pulses intact, Full ROM Extremity abnormal: edema, erythema - Gastrointestinal General gastrointestinal: Present: soft, non-tender, non-distended, normal bowel sounds, other (Resolving ascites) - Musculoskeletal Musculoskeletal: generalized weakness - Neurologic Neurologic: moves all extremities - Psychiatric Psychiatric: agitated - Labs CBC & Chem 7: 12/11/20 05:03 12/12/20 08:06 Labs: Abnormal lab results 12/11/20 12/12/20 Range/Units 12:14 08:06 Sodium 134 L (137-145) mmol/L Potassium 3.1 L (3.6-5.0) mmol/L Chloride 97.4 L (98-107) mmol/L Glucose 103 H (75-100) mg/dL Calcium 8.3 L (8.4-10.2) mg/dL Digoxin 0.3 L (0.9-2.0) ng/mL HEART Score - HEART Score Troponin: Troponin T < 0.010 ng/mL (0.00-0.029) 12/07/20 04:51
[2020-12-12 08:57] LABS: BUN/Creatinine Ratio 70
[2020-12-12] MEDS: LACTULOSE 20 GM/30 ML ORAL LIQD PO SCH (09:47)
[2020-12-12] MEDS: cefTRIAXone/NS 1 GM/50 ML 1 GM/50 ML BAG IV SCH (09:47)
--- NOTE | 2020-12-12 09:53 | Progress Note ---
Assessment and Plan Impression * Hyponatremia, hypervolemic * Alcoholic hepatitis * Cardiomyopathy - EF 10-15% * Transamintis * Hyperbilirubinemia * Anasarca * Alcohol abuse * Atrial fibrillation Plan: * Continue Lasix 20mg IV BID w/ Albumim * Sodium improved - continue close monitoring * KCl 40meq BID x 2 doses * GI recommendations noted * Rate control per cardiology * CIWA protocol per primary team * Replete lytes prn Subjective Date of service: 12/12/20 Principal diagnosis: HFrEF, Afib w/RVR, Alcoholic liver disease Interval history: No acute events overnight Objective - Vital Signs Vital signs: Vital Signs - 12hr 12/11/20 12/11/20 12/11/20 22:00 22:28 23:20 Temperature 98.7 F Pulse Rate 69 82 67 Respiratory 24 18 Rate Blood Pressure 119/64 121/94 O2 Sat by Pulse 95 100 Oximetry 12/12/20 12/12/20 12/12/20 04:01 04:38 08:19 Temperature 98.0 F 98.0 F Pulse Rate 44 L 68 65 Respiratory 20 20 Rate Blood Pressure 112/92 122/97 O2 Sat by Pulse 100 98 Oximetry - General Appearance General appearance: well-developed, well-nourished EENT: ATNC, sclera incterus Neck: no JVD Respiratory: Present: Clear to Ascultation Cardiology: irregular Gastrointestinal: normal, no tenderness, no distended Integumentary: other (jaundiced) Neurologic: confused Musculoskeletal: other (2+edema) - Lab 12/13/20 05:18 12/13/20 05:18 Most recent lab results Calcium 8.3 mg/dL (8.4-10.2) L 12/12/20 08:06 Phosphorus 2.50 mg/dL (2.5-4.5) 12/06/20 10:01 Magnesium 1.90 mg/dL (1.7-2.3) 12/07/20 04:51 Urine Sodium 10 mmol/L 12/06/20 Unknown Medications & Allergies - Medications Allergies/Adverse Reactions: Allergies No Known Allergies Allergy (Unverified 12/05/20 15:43) Home Medications: Home Medications Medication Instructions Recorded Confirmed Last Taken Type No Known Home Medications [No 12/08/20 12/08/20 Unknown History Reported Home Medications] Active Medications: Generic Name Dose Route Start Last Admin Trade Name Param PRN Reason Stop Dose Admin Albumin Human 25 gm 12/11/20 11:00 12/11/20 22:40 Albumin Human 25% (25 Gm/100 Ml) Inj IV 25 gm BID WESLEY Administration Albuterol 2.5 mg 12/05/20 17:11 12/09/20 20:33 Albuterol 2.5 Mg/3 Ml Nebu IH 2.5 mg Q4HRT PRN Administration Shortness Of Breath Digoxin 0.125 mg 12/08/20 12:00 12/11/20 11:50 Digoxin 0.125 Mg Tab PO 0.125 mg DAILY WESLEY Administration Folic Acid 1 mg 12/06/20 10:00 12/11/20 11:48 Folic Acid 1 Mg Tab PO 1 mg QDAY WESLEY Administration Furosemide 20 mg 12/11/20 11:00 12/11/20 22:28 Furosemide 20 Mg/2 Ml Inj IV 20 mg BID WESLEY Administration Heparin Sodium (Porcine) 5,000 unit 12/10/20 22:00 12/12/20 06:09 Heparin 5,000 Unit/1 Ml Vial SUB-Q 5,000 unit Q8HR WESLEY Administration Hydromorphone HCl 0.5 mg 12/05/20 17:11 12/06/20 17:39 Hydromorphone 1 Mg/1 Ml Inj IV 0.5 mg Q12H PRN Administration Pain , Severe (7-10) Ceftriaxone Sodium 1 gm in 50 mls @ 100 mls/hr 12/10/20 08:00 12/12/20 09:47 Rocephin/Ns 1 Gm/50 Ml IV 100 mls/hr Q24H WESLEY Administration Protocol Lactulose 20 gm 12/10/20 14:00 12/12/20 09:47 Lactulose 20 Gm/30 Ml Oral Liqd PO 20 gm TID WESLEY Administration Lorazepam 2 mg 12/05/20 17:13 12/12/20 07:02 Lorazepam 2 Mg/Ml Vial IV 2 mg Q1HR PRN Administration MIKAYLA-Mauro 8-15 Metoprolol Tartrate 12.5 mg 12/08/20 12:00 12/11/20 22:28 Metoprolol Tartrate 25 Mg Tab PO 12.5 mg BID WESLEY Administration Morphine Sulfate 1 mg 12/05/20 17:11 12/08/20 01:48 Morphine 2 Mg/1 Ml Inj IV 1 mg Q8H PRN Administration Pain, Moderate (4-6) Multivitamins 1 each 12/06/20 10:00 12/11/20 11:53 Multivitamins ,Therapeutic Tab PO 1 each QDAY WESLEY Administration Ondansetron HCl 4 mg 12/05/20 17:11 Ondansetron 4 Mg/2 Ml Inj IV Q8H PRN Nausea And Vomiting Potassium Chloride 40 meq 12/12/20 10:00 Potassium Chloride Er 20 Meq Tab PO 12/12/20 22:01 BID WESLEY Prednisolone Sodium Phosphate 40 mg 12/08/20 12:00 12/11/20 11:39 Prednisolone Sod Phosphate 15 Mg/5 Ml Oral Liqd PO 40 mg QDAY WESLEY Administration Sodium Chloride 10 ml 12/05/20 22:00 12/12/20 09:48 Sodium Chloride 0.9% 10 Ml Flush Syringe IV 10 ml BID WESLEY Administration Sodium Chloride 10 ml 12/05/20 17:11 12/12/20 03:25 Sodium Chloride 0.9% 10 Ml Flush Syringe IV 10 ml PRN PRN Administration LINE FLUSH Thiamine HCl 100 mg 12/06/20 10:00 12/11/20 11:49 Thiamine 100 Mg Tab PO 100 mg QDAY WESLEY Administration
--- NOTE | 2020-12-12 11:00 | Gastroenterology Progress Note ---
Assessment and Plan 50 yo male admitted for anasarca, afib with RVR, CHF with EF 10-15 % on TTE, and severe hyponatremia. Rec - recommend diagnostic paracentesis once able to obtain consent -Optimize cardiac status -For encephalopathy continue lactulose, I changed order to rectal route. Suspect some of the confusion due to benzo use as part of [facility] protocol as that can cause extended decreased mental status in decompensated cirrhosis; therefore I recommend avoid Benzos (and opiates) as much as possible - due to elevated Maddrey score will continue current dose prednisilone for now and monitor response (I ordered hepatic function and Coags for tomorrow AM) - continue to avoid hepato toxic medications. - Patient Problems (1) Jaundice Current Visit: Yes Status: Acute (2) Hyponatremia Current Visit: Yes Status: Acute (3) Alcohol dependence Current Visit: Yes Status: Chronic Subjective Date of service: 12/12/20 Principal diagnosis: HFrEF, Afib w/RVR, Alcoholic liver disease Interval history: Patient is very lethargic and not responding to my verbal questions Objective - Constitutional Vitals: Temp Pulse Resp BP Pulse Ox 98.0 F 65 20 122/97 98 12/12/20 08:19 12/12/20 08:19 12/12/20 08:19 12/12/20 08:19 12/12/20 08:19 General appearance: disheveled - EENT Eyes: scleral icterus ENT: hearing decreased - Neck Neck: supple - Respiratory Respiratory effort: normal - Gastrointestinal General gastrointestinal: Present: normal bowel sounds - Neurologic Neurological: disoriented - Psychiatric Psychiatric: other (very lethargic) - Labs CBC & Chem 7: 12/11/20 05:03 12/12/20 08:06 Labs: Laboratory Results - last 24 hr 12/09/20 12/11/20 12/12/20 04:44 12:14 08:06 Sodium 134 L Potassium 3.1 L Chloride 97.4 L Carbon Dioxide 26 Anion Gap 14 BUN 14 Creatinine < 0.2 L Estimated GFR > 60 BUN/Creatinine Ratio 70 Glucose 103 H Calcium 8.3 L Total Cortisol 34.0 Digoxin 0.3 L
--- NOTE | 2020-12-12 11:49 | Progress Note ---
Assessment and Plan HFrEF Dilated cardiomyopathy Chest pain, intermittent * Patient is currently chest pain-free. Twelve-lead reviewed shows atrial fibrillation with no acute ischemic changes. Troponin is negative x3. AMI ruled out * Echo 12/06/2020-EF 10 to 15% left ventricular diastolic function is indeterminate, right ventricle is mild to moderately dilated, right ventricle is severely hypokinetic, left atrium is severely dilated, mild pulmonary hypertension, mild tricuspid regurgitation, IVC is dilated IVC collapses with >50% inspiration. * Hold MACHELLE/ARB in setting of soft BP A. fib RVR * Patient converted to afib this AM. Patient is currently rate controlled with rate in the 80s on monitor * Contiue digoxin 0.125mg PO QD. Recheck digoxin level * No beta-blockers at this time due to soft blood pressure * Recommend starting Eliquis once liver status stable. Hyponatremia/hypomagnesemia Volume Overload * Electrolytes Currently being repleted. * 3+ bilateral lower extremity edema noted. * Management per nephrology Alcoholic Liver Disease [facility] protocol for alcohol dependence * GI following Continue digoxin. Will continue to follow. This patient was seen in conjunction with Dr Austin who agrees with this assessment plan of care - Patient Problems (1) HFrEF (heart failure with reduced ejection fraction) Current Visit: Yes Status: Acute (2) Dilated cardiomyopathy Current Visit: Yes Status: Acute (3) Atrial fibrillation with RVR Current Visit: Yes Status: Acute (4) Chest pain Current Visit: Yes Status: Resolved (5) Hypomagnesemia Current Visit: Yes Status: Acute (6) Hyponatremia Current Visit: Yes Status: Acute (7) Jaundice Current Visit: Yes Status: Acute (8) Alcohol dependence Current Visit: Yes Status: Chronic (9) Alcoholic liver disease Current Visit: Yes Status: Chronic Subjective Date of service: 12/12/20 Principal diagnosis: HFrEF, Afib w/RVR, Alcoholic liver disease Interval history: Patient lethargic laying in bed Patient converted from sinus rhythm to Afib 80s around 4:40am Objective Vital Signs Temp Pulse Resp BP Pulse Ox 12/12/20 08:19 98.0 F 65 20 122/97 98 12/12/20 04:38 68 12/12/20 04:01 98.0 F 44 L 20 112/92 100 12/11/20 23:20 98.7 F 67 18 121/94 100 12/11/20 22:28 82 119/64 12/11/20 22:00 69 24 95 12/11/20 21:43 100 12/11/20 19:58 100 12/11/20 19:16 98.0 F 82 19 119/64 83 L 12/11/20 16:52 98.3 F 64 18 117/81 98 12/11/20 12:04 98.7 F 76 20 133/112 91 12/11/20 11:50 99 H 12/11/20 11:49 99 H - Physical Examination General: No Apparent Distress HEENT: Positive: EOMI, Normocephaly, Mucus Membranes Moist Neck: Positive: neck supple, trachea midline, JVD/HJR Cardiac: Positive: irregularly irregular Lungs: Positive: Normal Breath Sounds Neuro: Positive: Grossly Intact Abdomen: Positive: Soft, Active Bowel Sounds. Negative: Tender Skin: Positive: Clear Musculoskeletal: Normal Range of Motion Extremities: Present: upper extr. pulses, +3 Edema (Bilateral lower extremities) - Labs and Meds Comprehensive Metabolic Panel 12/12/20 Range/Units 08:06 Sodium 134 L (137-145) mmol/L Potassium 3.1 L (3.6-5.0) mmol/L Chloride 97.4 L (98-107) mmol/L Carbon Dioxide 26 (22-30) mmol/L BUN 14 (9-20) mg/dL Creatinine < 0.2 L (0.8-1.3) mg/dL Glucose 103 H (75-100) mg/dL Calcium 8.3 L (8.4-10.2) mg/dL - Imaging and Cardiology EKG: report reviewed, image reviewed Echo: report reviewed - Telemetry EKG Rhythm: Atrial Fibrillation - EKG Supraventricular dysrhythmia: atrial fibrillation
[2020-12-12] MEDS: ALBUMIN HUMAN 25% (25 GM/100 ML) INJ IV SCH ×2 (12:21→23:17)
[2020-12-12] MEDS: FUROSEMIDE 20 MG/2 ML INJ IV SCH ×3 (12:22→23:19)
[2020-12-12] MEDS: DIGOXIN 0.125 MG TAB PO SCH (16:02)
[2020-12-12] MEDS: METOPROLOL TARTRATE 25 MG TAB PO SCH ×2 (16:03→22:52)
[2020-12-12] MEDS: MULTIVITAMINS ,THERAPEUTIC TAB PO SCH (16:03)
[2020-12-12] MEDS: FOLIC ACID 1 MG TAB PO SCH (16:03)
[2020-12-12] MEDS: prednisoLONE SOD PHOSPHATE 15 MG/5 ML ORAL LIQD PO SCH (16:03)
[2020-12-12] MEDS: POTASSIUM CHLORIDE ER 20 MEQ TAB PO SCH ×2 (16:03→22:52)
[2020-12-12] MEDS: HYDROmorphone 1 MG/1 ML INJ IV PRN (16:05)
[2020-12-12] MEDS: LACTULOSE ENEMA 1000 ML PR SCH ×2 (16:06→23:06)
[2020-12-12] MEDS: THIAMINE 100 MG TAB PO SCH (16:06)
[2020-12-13] MEDS: LORazepam 2 MG/ML VIAL IV PRN (03:28)
[2020-12-13] MEDS: HEPARIN 5,000 UNIT/1 ML VIAL SUB-Q SCH ×3 (05:48→22:15)
[2020-12-13 06:29] LABS: Hemoglobin 9.5 gm/dl (11.8-15.2); Mean Corpuscular HGB Conc 32 % (32-34); Mean Corpuscular Volume 97 fl (84-94); Platelet Count 151 K/mm3 (140-440)
[2020-12-13 06:39] LABS: INR 1.81 (0.87-1.13)
[2020-12-13 06:43] LABS: Red Cell Distribution Width 24.2 % (13.2-15.2)
[2020-12-13 06:57] LABS: Blood Urea Nitrogen 18 mg/dL (9-20); Calcium 8.4 mg/dL (8.4-10.2); Hemolysis Index 0
[2020-12-13 07:01] LABS: Albumin 3.6 g/dL (3.9-5); Bilirubin,Direct 8.8 mg/dL (0-0.2)
[2020-12-13 07:26] LABS: BUN/Creatinine Ratio 90
[2020-12-13] MEDS: THIAMINE 100 MG TAB PO SCH (09:09)
[2020-12-13] MEDS: MULTIVITAMINS ,THERAPEUTIC TAB PO SCH (09:09)
[2020-12-13] MEDS: LACTULOSE ENEMA 1000 ML PR SCH ×3 (09:09→22:15)
[2020-12-13] MEDS: cefTRIAXone/NS 1 GM/50 ML 1 GM/50 ML BAG IV SCH (09:09)
[2020-12-13] MEDS: DIGOXIN 0.125 MG TAB PO SCH (09:09)
[2020-12-13] MEDS: FOLIC ACID 1 MG TAB PO SCH (09:10)
[2020-12-13] MEDS: METOPROLOL TARTRATE 25 MG TAB PO SCH ×2 (09:10→22:16)
[2020-12-13] MEDS: FUROSEMIDE 20 MG/2 ML INJ IV SCH ×2 (09:10→22:14)
--- NOTE | 2020-12-13 09:17 | Progress Note ---
Assessment and Plan Impression * Hyponatremia, hypervolemic * Alcoholic hepatitis * Cardiomyopathy - EF 10-15% * Transamintis * Hyperbilirubinemia * Anasarca * Alcohol abuse * Atrial fibrillation Plan: * Continue Lasix 20mg IV BID w/ Albumim * Sodium now wnl * Continue KCl 40meq BID * Will check Mg * GI recommendations noted * Rate control per cardiology * CIWA protocol per primary team * Replete lytes prn Subjective Date of service: 12/13/20 Principal diagnosis: HFrEF, Afib w/RVR, Alcoholic liver disease Interval history: No acute events overnight. Patient currently on 3L. Objective - Vital Signs Vital signs: Vital Signs - 12hr 12/12/20 12/12/20 12/12/20 22:00 22:52 23:11 Temperature 98.2 F Pulse Rate 74 60 84 Respiratory 18 Rate Blood Pressure 151/106 137/100 Blood Pressure [Left] O2 Sat by Pulse 95 100 Oximetry 12/13/20 12/13/20 12/13/20 04:00 07:36 09:09 Temperature 98.5 F 98.3 F Pulse Rate 122 H 65 65 Respiratory 19 20 Rate Blood Pressure 122/90 122/90 Blood Pressure 118/87 [Left] O2 Sat by Pulse 100 98 Oximetry 12/13/20 09:10 Temperature Pulse Rate 65 Respiratory Rate Blood Pressure 122/90 Blood Pressure [Left] O2 Sat by Pulse Oximetry - General Appearance General appearance: well-developed, well-nourished EENT: ATNC, sclera incterus Respiratory: Present: Decreased Breath Sounds Cardiology: regular, S1S2 Gastrointestinal: no tenderness, no distended Integumentary: other (jaundiced) Neurologic: other (alert) Musculoskeletal: other (2+ edema; scrotal edema and flank wall edema improved) Psychiatric: cooperative - Lab 12/13/20 05:18 12/13/20 05:18 Most recent lab results Calcium 8.4 mg/dL (8.4-10.2) 12/13/20 05:18 Phosphorus 2.50 mg/dL (2.5-4.5) 12/06/20 10:01 Magnesium 1.90 mg/dL (1.7-2.3) 12/07/20 04:51 Urine Sodium 10 mmol/L 12/06/20 Unknown Medications & Allergies - Medications Allergies/Adverse Reactions: Allergies No Known Allergies Allergy (Unverified 12/05/20 15:43) Home Medications: Home Medications Medication Instructions Recorded Confirmed Last Taken Type No Known Home Medications [No 12/08/20 12/08/20 Unknown History Reported Home Medications] Active Medications: Generic Name Dose Route Start Last Admin Trade Name Freq PRN Reason Stop Dose Admin Albumin Human 25 gm 12/11/20 11:00 12/12/20 23:17 Albumin Human 25% (25 Gm/100 Ml) Inj IV 25 gm BID WESLEY Administration Albuterol 2.5 mg 12/05/20 17:11 12/09/20 20:33 Albuterol 2.5 Mg/3 Ml Nebu IH 2.5 mg Q4HRT PRN Administration Shortness Of Breath Digoxin 0.125 mg 12/08/20 12:00 12/13/20 09:09 Digoxin 0.125 Mg Tab PO 0.125 mg DAILY WESLEY Administration Folic Acid 1 mg 12/06/20 10:00 12/13/20 09:10 Folic Acid 1 Mg Tab PO 1 mg QDAY WESLEY Administration Furosemide 20 mg 12/11/20 11:00 12/13/20 09:10 Furosemide 20 Mg/2 Ml Inj IV 20 mg BID WESLEY Administration Heparin Sodium (Porcine) 5,000 unit 12/10/20 22:00 12/13/20 05:48 Heparin 5,000 Unit/1 Ml Vial SUB-Q 5,000 unit Q8HR WESLEY Administration Hydromorphone HCl 0.5 mg 12/05/20 17:11 12/12/20 16:05 Hydromorphone 1 Mg/1 Ml Inj IV 0.5 mg Q12H PRN Administration Pain , Severe (7-10) Ceftriaxone Sodium 1 gm in 50 mls @ 100 mls/hr 12/10/20 08:00 12/13/20 09:09 Rocephin/Ns 1 Gm/50 Ml IV 100 mls/hr Q24H WESLEY Administration Protocol Lactulose 200 gm 12/12/20 14:00 12/13/20 09:09 Lactulose Enema 1000 Ml SD 200 gm TID WESLEY Administration Lorazepam 2 mg 12/05/20 17:13 12/13/20 03:28 Lorazepam 2 Mg/Ml Vial IV 2 mg Q1HR PRN Administration MIKAYLA-Mauro 8-15 Metoprolol Tartrate 12.5 mg 12/08/20 12:00 12/13/20 09:10 Metoprolol Tartrate 25 Mg Tab PO 12.5 mg BID WESLEY Administration Morphine Sulfate 1 mg 12/05/20 17:11 12/08/20 01:48 Morphine 2 Mg/1 Ml Inj IV 1 mg Q8H PRN Administration Pain, Moderate (4-6) Multivitamins 1 each 12/06/20 10:00 12/13/20 09:09 Multivitamins ,Therapeutic Tab PO 1 each QDAY WESLEY Administration Ondansetron HCl 4 mg 12/05/20 17:11 Ondansetron 4 Mg/2 Ml Inj IV Q8H PRN Nausea And Vomiting Prednisolone Sodium Phosphate 40 mg 12/08/20 12:00 12/12/20 16:03 Prednisolone Sod Phosphate 15 Mg/5 Ml Oral Liqd PO 40 mg QDAY WESLEY Administration Sodium Chloride 10 ml 12/05/20 22:00 12/13/20 09:11 Sodium Chloride 0.9% 10 Ml Flush Syringe IV 10 ml BID WESLEY Administration Sodium Chloride 10 ml 12/05/20 17:11 12/12/20 03:25 Sodium Chloride 0.9% 10 Ml Flush Syringe IV 10 ml PRN PRN Administration LINE FLUSH Thiamine HCl 100 mg 12/06/20 10:00 12/13/20 09:09 Thiamine 100 Mg Tab PO 100 mg QDAY WESLEY Administration
[2020-12-13 10:16] LABS: Band Neutrophils # (Manual) 1.3 K/mm3; Myelocytes # (Manual) 0.1 K/mm3; Total Cells Counted 100
[2020-12-13 10:17] LABS: RBC Morphology Normal; Target Cells 1+
[2020-12-13 10:18] LABS: Platelet Estimate Consistent w Auto
[2020-12-13] MEDS: prednisoLONE SOD PHOSPHATE 15 MG/5 ML ORAL LIQD PO SCH (10:42)
[2020-12-13] MEDS: ALBUMIN HUMAN 25% (25 GM/100 ML) INJ IV SCH ×2 (10:42→23:44)
--- NOTE | 2020-12-13 11:11 | Progress Note ---
Assessment and Plan HFrEF Dilated cardiomyopathy Chest pain, intermittent- currently chest pain free * Twelve-lead reviewed shows atrial fibrillation with no acute ischemic changes. Troponin is negative x3. AMI ruled out * Echo 12/06/2020-EF 10 to 15% left ventricular diastolic function is indeterminate, right ventricle is mild to moderately dilated, right ventricle is severely hypokinetic, left atrium is severely dilated, mild pulmonary hypertension, mild tricuspid regurgitation, IVC is dilated IVC collapses with >50% inspiration. * Initiated Lisinopril 2.5mg PO QD A. fib RVR * Patient not consistently on monitor last reading shows afib rate 90s-100s. Was sinus rhythm converted to afib yesterday AM. * Contiue digoxin 0.125mg PO QD and Metoprolol 12.5mg PO BID * Recommend starting Eliquis once liver status stable. Hypokalemia Hyponatremia/hypomagnesemia (resolved) Volume Overload * Potassium being repleted. * 3+ bilateral lower extremity edema noted. * Management per nephrology Alcoholic Liver Disease [facility] protocol for alcohol dependence * GI following Continue digoxin. Started lisinopril. Will continue to follow. This patient was seen in conjunction with Dr Austin who agrees with this assessment plan of care - Patient Problems (1) HFrEF (heart failure with reduced ejection fraction) Current Visit: Yes Status: Acute (2) Dilated cardiomyopathy Current Visit: Yes Status: Acute (3) Atrial fibrillation with RVR Current Visit: Yes Status: Acute (4) Chest pain Current Visit: Yes Status: Resolved (5) Hypomagnesemia Current Visit: Yes Status: Acute (6) Hyponatremia Current Visit: Yes Status: Acute (7) Jaundice Current Visit: Yes Status: Acute (8) Alcohol dependence Current Visit: Yes Status: Chronic (9) Alcoholic liver disease Current Visit: Yes Status: Chronic Subjective Date of service: 12/13/20 Principal diagnosis: HFrEF, Afib w/RVR, Alcoholic liver disease Interval history: Patient sitting in bed. Has no complaints Patient not consistently in monitor. Patient has been taking it off. Monitor last showed afib rate 90s-100s Objective Vital Signs Temp Pulse Resp BP BP Pulse Ox 12/13/20 09:10 65 122/90 12/13/20 09:09 65 122/90 12/13/20 07:36 98.3 F 65 20 122/90 98 12/13/20 04:00 98.5 F 122 H 19 118/87 100 12/12/20 23:11 98.2 F 84 18 137/100 100 12/12/20 22:52 60 151/106 12/12/20 22:00 74 95 12/12/20 19:18 98.0 F 60 19 151/106 99 12/12/20 15:57 84 117/85 100 - Physical Examination General: No Apparent Distress HEENT: Positive: EOMI, Normocephaly, Mucus Membranes Moist Neck: Positive: neck supple, trachea midline, JVD/HJR Cardiac: Positive: irregularly irregular Lungs: Positive: Normal Breath Sounds Neuro: Positive: Grossly Intact Abdomen: Positive: Soft, Active Bowel Sounds. Negative: Tender Skin: Positive: Clear Musculoskeletal: Normal Range of Motion Extremities: Present: upper extr. pulses, +3 Edema (Bilateral lower extremities) - Labs and Meds Cardiac Enzymes 12/13/20 Range/Units 05:18 AST 57 H (5-40) units/L Coagulation 12/13/20 Range/Units 05:18 PT 21.4 H (12.2-14.9) Sec. INR 1.81 H (0.87-1.13) CBC 12/13/20 Range/Units 05:18 WBC 9.6 (4.5-11.0) K/mm3 RBC 3.10 L (3.65-5.03) M/mm3 Hgb 9.5 L (11.8-15.2) gm/dl Hct 30.0 L (35.5-45.6) % Plt Count 151 (140-440) K/mm3 Comprehensive Metabolic Panel 12/13/20 12/13/20 Range/Units 05:18 05:18 Sodium 138 (137-145) mmol/L Potassium 3.3 L (3.6-5.0) mmol/L Chloride 100.1 (98-107) mmol/L Carbon Dioxide 24 (22-30) mmol/L BUN 18 (9-20) mg/dL Creatinine < 0.2 L (0.8-1.3) mg/dL Glucose 121 H (75-100) mg/dL Calcium 8.4 (8.4-10.2) mg/dL Direct Bilirubin 8.8 H (0-0.2) mg/dL Indirect Bilirubin 6.0 mg/dL AST 57 H (5-40) units/L ALT 49 (7-56) units/L Alkaline Phosphatase 165 H (35-129) units/L Total Protein 5.3 L (6.3-8.2) g/dL Albumin 3.6 L (3.9-5) g/dL - Imaging and Cardiology EKG: report reviewed, image reviewed Echo: report reviewed - Telemetry EKG Rhythm: Atrial Fibrillation - EKG Supraventricular dysrhythmia: atrial fibrillation
[2020-12-13] MEDS: LISINOPRIL 5 MG TAB PO SCH (11:41)
--- NOTE | 2020-12-13 11:41 | Progress Note ---
Assessment and Plan Assessment and plan: 50 YO Male with ETOH Dependence presents to ED for evaluation. Patient reports "I feel short of breath". Patient states that he has experienced shortness of breath, intermittent chest palpitations, as well as chest discomfort over the past 2 days with increased duration and frequency of the aforementioned symptoms over the same timeframe. EMS was notified and upon arrival the patient was found to be in distress and subsequently transported to [facility] for further care and evaluation of the aforementioned symptoms. The patient family reports that patient has been "feeling sick" and has been drinking a lot of alcohol over the past 1 week. Patient seen and evaluated in the emergency department. All lab and imaging studies reviewed. 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 Patient treated with medical cardioversion Acute kidney injury with acute tubular necrosis. Acute heart failure with reduced ejection fraction. Atrial fibrillation with RVR. EtOH dependence EtOH liver disease 12/06/20 Patient with atrial fibrillation with RVR, severe hyponatremia, alcoholic liver disease. Consulted Cardiology, GI and Nephrology. Started on Amiodarone, iv fluids, Thiamine Sodium 114 12/07/20 Patient with atrial fibrillation with RVR, severe hyponatremia, alcoholic liver disease. Cardiology, GI and Nephrology following. Started on Amiodarone, iv fluids, Thiamine Sodium 117 today, slight increased 12/08/20 Patient with atrial fibrillation with RVR, severe hyponatremia, alcoholic liver disease. Cardiology, GI and Nephrology following. On Amiodarone, iv fluids, Thiamine Sodium 112 today, worsening I discussed case with GI. She is contemplating poss starting steroids. Will order Coronavirus PCR as suggested by GI. Repeat CXR today. 12/09/20 Patient with atrial fibrillation with RVR, severe hyponatremia, alcoholic liver disease. Cardiology, GI and Nephrology following. On Amiodarone, iv fluids, Thiamine Sodium 114 today, Hyperkalemia with Potassium 5.4. Give kayexalate I discussed case with GI. She has started him on Prednisone. Ordered Coronavirus PCR as suggested by GI. Place loki as Nurse had difficulty obtaining urine because of edema of penis, scrotum. 12/10/20 Patient with atrial fibrillation with RVR, severe hyponatremia, alcoholic liver disease. Cardiology, GI and Nephrology following. iv fluids, Thiamine Sodium improving, 122 today, Hyperkalemia now resolved after kayexalate I discussed case with GI. She has started him on Prednisone for alcoholic hepatitis Ordered Coronavirus PCR as suggested by GI, negative Covid. Placed manjarrez as Nurse had difficulty obtaining urine because of edema of penis, scrotum. 12/11/2020. Patient rate well controlled at this particular time. Patient in bed somewhat agitated in restraints. Initial exam consistent with delirium tremors alcohol withdrawal 12/12/2020. Patient remains restrained. Signs and symptoms as well as presentation consistent with alcohol withdrawal. No new events overnight. No rhythm changes over p.m. 12/13/2020. Patient continues to require restraints. Continue CIWA protocol. INR remains elevated at 1.81. Sodium improved to 138. Replete potassium which is at 3.3 today. Diagnostic paracentesis per GI. Continue lactulose via rectal route. We will attempt to avoid benzodiazepines as they may be worsening the altered mentation. Follow-up hepatic function and coags. History Interval history: No new issues overnight. Hospitalist Physical - Constitutional Vitals: Temp Pulse Resp BP Pulse Ox 98.2 F 71 20 118/96 99 12/13/20 11:31 12/13/20 11:31 12/13/20 11:31 12/13/20 11:31 12/13/20 11:31 General appearance: Present: no acute distress, other (Restrained agitated with tremors.) - EENT Eyes: Present: PERRL, EOM intact ENT: hearing intact, clear oral mucosa, dentition normal - Neck Neck: Present: supple, normal ROM - Respiratory Respiratory effort: normal Respiratory: bilateral: CTA - Cardiovascular Rhythm: regular Heart Sounds: Present: S1 & S2. Absent: gallop, rub - Extremities Extremities: no ischemia, No edema, Full ROM - Abdominal General gastrointestinal: soft, non-tender, non-distended, normal bowel sounds - Integumentary Integumentary: Present: clear, warm, dry - Neurologic Neurologic: CNII-XII intact, moves all extremities HEART Score - HEART Score Troponin: Troponin T < 0.010 ng/mL (0.00-0.029) 12/07/20 04:51 Results - Labs CBC & Chem 7: 12/13/20 05:18 12/13/20 05:18 Labs: Laboratory Last Values WBC 9.6 K/mm3 (4.5-11.0) 12/13/20 05:18 RBC 3.10 M/mm3 (3.65-5.03) L 12/13/20 05:18 Hgb 9.5 gm/dl (11.8-15.2) L 12/13/20 05:18 Hct 30.0 % (35.5-45.6) L 12/13/20 05:18 MCV 97 fl (84-94) H 12/13/20 05:18 MCH 31 pg (28-32) 12/13/20 05:18 MCHC 32 % (32-34) 12/13/20 05:18 RDW 24.2 % (13.2-15.2) H 12/13/20 05:18 Plt Count 151 K/mm3 (140-440) 12/13/20 05:18 Add Manual Diff Complete 12/13/20 05:18 Total Counted 100 12/13/20 05:18 Seg Neutrophils % Director Translational 12/13/20 05:18 Seg Neuts % (Manual) 79.0 % (40.0-70.0) H 12/13/20 05:18 Band Neutrophils % 14.0 % 12/13/20 05:18 Lymphocytes % (Manual) 4.0 % (13.4-35.0) L 12/05/20 14:14 Monocytes % (Manual) 6.0 % (0.0-7.3) 12/13/20 05:18 Eosinophils % (Manual) 1.0 % (0.0-4.3) 12/05/20 14:14 Myelocytes % 1.0 % 12/13/20 05:18 Nucleated RBC % Not Reportable 12/13/20 05:18 Seg Neutrophils # Man 7.6 K/mm3 (1.8-7.7) 12/13/20 05:18 Band Neutrophils # 1.3 K/mm3 12/13/20 05:18 Lymphocytes # (Manual) 0.0 K/mm3 (1.2-5.4) L 12/13/20 05:18 Abs React Lymphs (Man) 0.0 K/mm3 12/13/20 05:18 Monocytes # (Manual) 0.6 K/mm3 (0.0-0.8) 12/13/20 05:18 Eosinophils # (Manual) 0.0 K/mm3 (0.0-0.4) 12/13/20 05:18 Basophils # (Manual) 0.0 K/mm3 (0.0-0.1) 12/13/20 05:18 Metamyelocytes # 0.0 K/mm3 12/13/20 05:18 Myelocytes # 0.1 K/mm3 12/13/20 05:18 Promyelocytes # 0.0 K/mm3 12/13/20 05:18 Blast Cells # 0.0 K/mm3 12/13/20 05:18 WBC Morphology Not Reportable 12/13/20 05:18 Hypersegmented Neuts Not Reportable 12/13/20 05:18 Hyposegmented Neuts Not Reportable 12/13/20 05:18 Hypogranular Neuts Not Reportable 12/13/20 05:18 Smudge Cells Not Reportable 12/13/20 05:18 Toxic Granulation Not Reportable 12/13/20 05:18 Toxic Vacuolation Not Reportable 12/13/20 05:18 Dohle Bodies Not Reportable 12/13/20 05:18 Pelger-Huet Anomaly Not Reportable 12/13/20 05:18 Tamiko Rods Not Reportable 12/13/20 05:18 Platelet Estimate Consistent w auto 12/13/20 05:18 Clumped Platelets Not Reportable 12/13/20 05:18 Plt Clumps, EDTA Not Reportable 12/13/20 05:18 Large Platelets Not Reportable 12/13/20 05:18 Giant Platelets Not Reportable 12/13/20 05:18 Platelet Satelliting Not Reportable 12/13/20 05:18 Plt Morphology Comment Not Reportable 12/13/20 05:18 RBC Morphology Normal 12/13/20 05:18 Dimorphic RBCs Not Reportable 12/13/20 05:18 Polychromasia Not Reportable 12/13/20 05:18 Hypochromasia Not Reportable 12/13/20 05:18 Poikilocytosis Not Reportable 12/13/20 05:18 Anisocytosis Not Reportable 12/13/20 05:18 Microcytosis Not Reportable 12/13/20 05:18 Macrocytosis Not Reportable 12/13/20 05:18 Spherocytes Not Reportable 12/13/20 05:18 Pappenheimer Bodies Not Reportable 12/13/20 05:18 Sickle Cells Not Reportable 12/13/20 05:18 Target Cells 1+ 12/13/20 05:18 Tear Drop Cells Not Reportable 12/13/20 05:18 Ovalocytes Not Reportable 12/13/20 05:18 Helmet Cells Not Reportable 12/13/20 05:18 Guillen-[place] Bodies Not Reportable 12/13/20 05:18 [place] Rings Not Reportable 12/13/20 05:18 Bernardo Cells Not Reportable 12/13/20 05:18 Bite Cells Not Reportable 12/13/20 05:18 Crenated Cell Not Reportable 12/13/20 05:18 Elliptocytes Not Reportable 12/13/20 05:18 Acanthocytes (Spur) Not Reportable 12/13/20 05:18 Rouleaux Not Reportable 12/13/20 05:18 Hemoglobin C Crystals Not Reportable 12/13/20 05:18 Schistocytes Not Reportable 12/13/20 05:18 Malaria parasites Not Reportable 12/13/20 05:18 Parrish Bodies Not Reportable 12/13/20 05:18 Hem Pathologist Commnt No 12/13/20 05:18 PT 21.4 Sec. (12.2-14.9) H 12/13/20 05:18 INR 1.81 (0.87-1.13) H 12/13/20 05:18 APTT 31.8 Sec. (24.2-36.6) 12/05/20 14:14 Sodium 138 mmol/L (137-145) 12/13/20 05:18 Potassium 3.3 mmol/L (3.6-5.0) L 12/13/20 05:18 Chloride 100.1 mmol/L (98-107) 12/13/20 05:18 Carbon Dioxide 24 mmol/L (22-30) 12/13/20 05:18 Anion Gap 17 mmol/L 12/13/20 05:18 BUN 18 mg/dL (9-20) 12/13/20 05:18 Creatinine < 0.2 mg/dL (0.8-1.3) L 12/13/20 05:18 Estimated GFR > 60 ml/min 12/13/20 05:18 BUN/Creatinine Ratio 90 % 12/13/20 05:18 Glucose 121 mg/dL (75-100) H 12/13/20 05:18 Calcium 8.4 mg/dL (8.4-10.2) 12/13/20 05:18 Phosphorus 2.50 mg/dL (2.5-4.5) 12/06/20 10:01 Magnesium 1.90 mg/dL (1.7-2.3) 12/07/20 04:51 Iron 61 ug/dL (49-181) 12/06/20 13:18 TIBC 326 mcg/dL (250-450) 12/06/20 13:18 Total Bilirubin 14.80 mg/dL (0.1-1.2) H 12/13/20 05:18 Direct Bilirubin 8.8 mg/dL (0-0.2) H 12/13/20 05:18 Indirect Bilirubin 6.0 mg/dL 12/13/20 05:18 AST 57 units/L (5-40) H 12/13/20 05:18 ALT 49 units/L (7-56) 12/13/20 05:18 Alkaline Phosphatase 165 units/L (35-129) H 12/13/20 05:18 Troponin T < 0.010 ng/mL (0.00-0.029) 12/07/20 04:51 Total Protein 5.3 g/dL (6.3-8.2) L 12/13/20 05:18 Albumin 3.6 g/dL (3.9-5) L 12/13/20 05:18 Albumin/Globulin Ratio 2.1 % 12/13/20 05:18 TSH 1.490 mlU/mL (0.270-4.200) 12/09/20 04:44 Total Cortisol 34.0 mcg/dL () 12/09/20 04:44 Urine Color Meredith (Yellow) 12/09/20 15:48 Urine Turbidity Slightly-cloudy (Clear) 12/09/20 15:48 Urine pH 5.0 (5.0-7.0) 12/09/20 15:48 Ur Specific Tabiona 1.019 (1.003-1.030) 12/09/20 15:48 Urine Protein 30 mg/dl mg/dL (Negative) 12/09/20 15:48 Urine Glucose (UA) Neg mg/dL (Negative) 12/09/20 15:48 Urine Ketones Neg mg/dL (Negative) 12/09/20 15:48 Urine Blood Neg (Negative) 12/09/20 15:48 Urine Nitrite Neg (Negative) 12/09/20 15:48 Urine Bilirubin Mod (Negative) 12/09/20 15:48 Urine Ictotest 2 (Negative) 12/09/20 15:48 Urine Urobilinogen 4.0 mg/dL (<2.0) 12/09/20 15:48 Ur Leukocyte Esterase Neg (Negative) 12/09/20 15:48 Urine WBC (Auto) 31.0 /HPF (0.0-6.0) H 12/09/20 15:48 Urine RBC (Auto) 6.0 /HPF (0.0-6.0) 12/09/20 15:48 U Epithel Cells (Auto) 101.0 /HPF (0-13.0) H 12/09/20 15:48 Urine Bacteria (Auto) 1+ /HPF (Negative) 12/09/20 15:48 Urine WBC Clumps 2+ /HPF 12/09/20 15:48 Hyaline Casts 88 /LPF 12/09/20 15:48 Broad Casts 1 /LPF 12/09/20 15:48 Urine Mucus 2+ /HPF 12/09/20 15:48 Urine Osmolality 573 Mosm/kg 12/06/20 Unknown Urine Sodium 10 mmol/L 12/06/20 Unknown Digoxin 0.3 ng/mL (0.9-2.0) L 12/11/20 12:14 Plasma/Serum Alcohol < 0.01 % (0-0.07) 12/05/20 14:14 Coronavirus (PCR) Negative (Negative) 12/09/20 09:29 Hepatitis A Ab Total Reactive (Nonreactive) H 12/06/20 13:18 Hep Bs Antigen Nonreactive (Negative) 12/06/20 13:18 Hep Bs Antibody, Quant <5 mIU/mL (>=10) L 12/06/20 13:18 Hepatitis C Antibody Non-reactive (NonReactive) 12/06/20 13:18 Microbiology: Microbiology 12/09/20 15:48 Urine,Clean Catch Urine Culture - Final NO GROWTH AFTER 48 HOURS Manjarrez/IV: Voiding Method Indwelling Catheter Active Medications - Current Medications Current Medications: Generic Name Dose Route Start Last Admin Trade Name Freq PRN Reason Stop Dose Admin Albumin Human 25 gm 12/11/20 11:00 12/13/20 10:42 Albumin Human 25% (25 Gm/100 Ml) Inj IV 25 gm BID WESLEY Administration Albuterol 2.5 mg 12/05/20 17:11 12/09/20 20:33 Albuterol 2.5 Mg/3 Ml Nebu IH 2.5 mg Q4HRT PRN Administration Shortness Of Breath Digoxin 0.125 mg 12/08/20 12:00 12/13/20 09:09 Digoxin 0.125 Mg Tab PO 0.125 mg DAILY WESLEY Administration Folic Acid 1 mg 12/06/20 10:00 12/13/20 09:10 Folic Acid 1 Mg Tab PO 1 mg QDAY WESLEY Administration Furosemide 20 mg 12/11/20 11:00 12/13/20 09:10 Furosemide 20 Mg/2 Ml Inj IV 20 mg BID WESLEY Administration Heparin Sodium (Porcine) 5,000 unit 12/10/20 22:00 12/13/20 05:48 Heparin 5,000 Unit/1 Ml Vial SUB-Q 5,000 unit Q8HR WESLEY Administration Hydromorphone HCl 0.5 mg 12/05/20 17:11 12/12/20 16:05 Hydromorphone 1 Mg/1 Ml Inj IV 0.5 mg Q12H PRN Administration Pain , Severe (7-10) Ceftriaxone Sodium 1 gm in 50 mls @ 100 mls/hr 12/10/20 08:00 12/13/20 09:09 Rocephin/Ns 1 Gm/50 Ml IV 12/16/20 08:29 100 mls/hr Q24H WESLEY Administration Protocol Lactulose 200 gm 12/12/20 14:00 12/13/20 09:09 Lactulose Enema 1000 Ml WI 200 gm TID WESLEY Administration Lisinopril 2.5 mg 12/13/20 11:00 Lisinopril 5 Mg Tab PO QDAY WESLEY Lorazepam 2 mg 12/05/20 17:13 12/13/20 03:28 Lorazepam 2 Mg/Ml Vial IV 2 mg Q1HR PRN Administration CIWA-Ar 8-15 Metoprolol Tartrate 12.5 mg 12/08/20 12:00 12/13/20 09:10 Metoprolol Tartrate 25 Mg Tab PO 12.5 mg BID WESLEY Administration Morphine Sulfate 1 mg 12/05/20 17:11 12/08/20 01:48 Morphine 2 Mg/1 Ml Inj IV 1 mg Q8H PRN Administration Pain, Moderate (4-6) Multivitamins 1 each 12/06/20 10:00 12/13/20 09:09 Multivitamins ,Therapeutic Tab PO 1 each QDAY WESLEY Administration Ondansetron HCl 4 mg 12/05/20 17:11 Ondansetron 4 Mg/2 Ml Inj IV Q8H PRN Nausea And Vomiting Prednisolone Sodium Phosphate 40 mg 12/08/20 12:00 12/13/20 10:42 Prednisolone Sod Phosphate 15 Mg/5 Ml Oral Liqd PO 40 mg QDAY WESLEY Administration Sodium Chloride 10 ml 12/05/20 22:00 12/13/20 09:11 Sodium Chloride 0.9% 10 Ml Flush Syringe IV 10 ml BID WESLEY Administration Sodium Chloride 10 ml 12/05/20 17:11 12/12/20 03:25 Sodium Chloride 0.9% 10 Ml Flush Syringe IV 10 ml PRN PRN Administration LINE FLUSH Thiamine HCl 100 mg 12/06/20 10:00 12/13/20 09:09 Thiamine 100 Mg Tab PO 100 mg QDAY WESLEY Administration Nutrition/Malnutrition Assess - Dietary Evaluation Nutrition/Malnutrition Findings: Nutrition Notes Start: 12/12/20 16:31 Freq: Status: Active Protocol: Document 12/12/20 16:31 (Rec: 12/12/20 16:42 [id number]) Nutrition Notes Need for Assessment generated from: LOS Initial or Follow up Brief Note Current Diagnosis Acute Kidney Injury Other Pertinent Diagnosis etOH dependence, Acute HfrEF Current Diet cardiac Labs/Tests Na 134 K 3.1 BG 103 Height 5 ft 6 in Weight 82.2 kg [place] Body Weight (kg) 64.54 BMI 29.2 Weight Status Overweight Subjective/Other Information LOS contact. Pt and pt's nursed unable to be reached via phone or on the floor today. RD will followup for intakes tomorrow Burn Absent Trauma Absent Is patient on ventilator? No Is Patient Ambulatory and/or Out of Bed No REE-([facility]-confined to bed) 1965.324 Kcal/Kg value to use for calculation 35 Approximate Energy Requirements Using 2877 kcal/Kg Calculation Used for Recommendations Rula Rivera Additional Notes 25-35 kcal/ kg ASHLYN: 1181-2846 kcal /day protein 0.8-1.2 g/k-99 g /day fluid: 1 ml/kcal Nutrition Intervention Change Diet Order: continue Follow-Up By: 12/13/20 Additional Comments F/u LOS , intake/ nutrition ed
--- NOTE | 2020-12-13 12:35 | Gastroenterology Progress Note ---
Assessment and Plan 50 yo male admitted for anasarca, afib with RVR, and severe hyponatremia. # Elevated liver enzymes # Ascites # Jaundice - possible acute on chronic liver disease 2/2 alcohol complicated with hyponatremia, afib with RVR, and anasarca. - noted to have CHF with EF 10-15 % on TTE - na improved to 130s. - cardiology and nephrology on board. - Hep B/C negative. Rec - recommend diagnostic paracentesis. ordered placed again today. - elevated discrimate Maddrey score and started on steroid with prednisolone 40 mg daily for alcoholic hepatitis. Will need to monitor for response in next few days and also ensure follow up. Tbili trending down. INR still elevated. - rule out any infectious process. - monitor LFTs and INR. - lactulose and titrateto 2-3 soft stools a day - avoid hepato toxic medications. - will follow. - Patient Problems (1) Transaminitis Current Visit: Yes Status: Acute (2) Alcoholic liver disease Current Visit: Yes Status: Chronic Subjective Date of service: 12/13/20 Principal diagnosis: HFrEF, Afib w/RVR, Alcoholic liver disease Interval history: patient confused overnight and received one dose of ativan. This morning, patient remaining calm. Per nursing, patient had small BM.No bleeding. Objective - Constitutional Vitals: Temp Pulse Resp BP Pulse Ox 98.2 F 71 20 118/96 99 12/13/20 11:31 12/13/20 11:41 12/13/20 11:31 12/13/20 11:41 12/13/20 11:31 General appearance: no acute distress - EENT Eyes: EOM intact ENT: hearing intact - Neck Neck: supple - Respiratory Respiratory effort: normal - Cardiovascular Rhythm: regular Heart Sounds: Present: S1 & S2 - Gastrointestinal General gastrointestinal: Present: soft, non-tender, distended, normal bowel sounds - Integumentary Integumentary: Present: clear, warm, jaundice - Neurologic Neurological: disoriented - Labs CBC & Chem 7: 12/13/20 05:18 12/13/20 05:18 Labs: Laboratory Results - last 24 hr 12/13/20 12/13/20 12/13/20 05:18 05:18 05:18 WBC 9.6 RBC 3.10 L Hgb 9.5 L Hct 30.0 L MCV 97 H MCH 31 MCHC 32 RDW 24.2 H Plt Count 151 Add Manual Diff Complete Total Counted 100 Seg Neutrophils % Repairer Kiln Car Seg Neuts % (Manual) 79.0 H Band Neutrophils % 14.0 Monocytes % (Manual) 6.0 Myelocytes % 1.0 Nucleated RBC % Not Reportable Seg Neutrophils # Man 7.6 Band Neutrophils # 1.3 Lymphocytes # (Manual) 0.0 L Abs React Lymphs (Man) 0.0 Monocytes # (Manual) 0.6 Eosinophils # (Manual) 0.0 Basophils # (Manual) 0.0 Metamyelocytes # 0.0 Myelocytes # 0.1 Promyelocytes # 0.0 Blast Cells # 0.0 WBC Morphology Not Reportable Hypersegmented Neuts Not Reportable Hyposegmented Neuts Not Reportable Hypogranular Neuts Not Reportable Smudge Cells Not Reportable Toxic Granulation Not Reportable Toxic Vacuolation Not Reportable Dohle Bodies Not Reportable Pelger-Huet Anomaly Not Reportable Tamiko Rods Not Reportable Platelet Estimate Consistent w auto Clumped Platelets Not Reportable Plt Clumps, EDTA Not Reportable Large Platelets Not Reportable Giant Platelets Not Reportable Platelet Satelliting Not Reportable Plt Morphology Comment Not Reportable RBC Morphology Normal Dimorphic RBCs Not Reportable Polychromasia Not Reportable Hypochromasia Not Reportable Poikilocytosis Not Reportable Anisocytosis Not Reportable Microcytosis Not Reportable Macrocytosis Not Reportable Spherocytes Not Reportable Pappenheimer Bodies Not Reportable Sickle Cells Not Reportable Target Cells 1+ Tear Drop Cells Not Reportable Ovalocytes Not Reportable Helmet Cells Not Reportable Guillen-[place] Bodies Not Reportable [place] Rings Not Reportable [place] Cells Not Reportable Bite Cells Not Reportable Crenated Cell Not Reportable Elliptocytes Not Reportable Acanthocytes (Spur) Not Reportable Rouleaux Not Reportable Hemoglobin C Crystals Not Reportable Schistocytes Not Reportable Malaria parasites Not Reportable Parrish Bodies Not Reportable Hem Pathologist Commnt No PT 21.4 H INR 1.81 H Sodium Potassium Chloride Carbon Dioxide Anion Gap BUN Creatinine Estimated GFR BUN/Creatinine Ratio Glucose Calcium Total Bilirubin 14.80 H Direct Bilirubin 8.8 H Indirect Bilirubin 6.0 AST 57 H ALT 49 Alkaline Phosphatase 165 H Total Protein 5.3 L Albumin 3.6 L Albumin/Globulin Ratio 2.1 12/13/20 05:18 WBC RBC Hgb Hct MCV MCH MCHC RDW Plt Count Add Manual Diff Total Counted Seg Neutrophils % Seg Neuts % (Manual) Band Neutrophils % Monocytes % (Manual) Myelocytes % Nucleated RBC % Seg Neutrophils # Man Band Neutrophils # Lymphocytes # (Manual) Abs React Lymphs (Man) Monocytes # (Manual) Eosinophils # (Manual) Basophils # (Manual) Metamyelocytes # Myelocytes # Promyelocytes # Blast Cells # WBC Morphology Hypersegmented Neuts Hyposegmented Neuts Hypogranular Neuts Smudge Cells Toxic Granulation Toxic Vacuolation Dohle Bodies Pelger-Huet Anomaly Tamiko Rods Platelet Estimate Clumped Platelets Plt Clumps, EDTA Large Platelets Giant Platelets Platelet Satelliting Plt Morphology Comment RBC Morphology Dimorphic RBCs Polychromasia Hypochromasia Poikilocytosis Anisocytosis Microcytosis Macrocytosis Spherocytes Pappenheimer Bodies Sickle Cells Target Cells Tear Drop Cells Ovalocytes Helmet Cells Guillen-[place] Bodies [place] Rings Bernardo Cells Bite Cells Crenated Cell Elliptocytes Acanthocytes (Spur) Rouleaux Hemoglobin C Crystals Schistocytes Malaria parasites Parrish Bodies Hem Pathologist Commnt PT INR Sodium 138 Potassium 3.3 L Chloride 100.1 Carbon Dioxide 24 Anion Gap 17 BUN 18 Creatinine < 0.2 L Estimated GFR > 60 BUN/Creatinine Ratio 90 Glucose 121 H Calcium 8.4 Total Bilirubin Direct Bilirubin Indirect Bilirubin AST ALT Alkaline Phosphatase Total Protein Albumin Albumin/Globulin Ratio
--- NOTE | 2020-12-13 16:48 | Ultrasound Report ---
Ultrasound-guided paracentesis Indication: Diagnostic paracentesis Procedure: Procedure was discussed with the patient's daughter including risks and benefits. Risks of the procedure including bleeding, infection, and bowel injury were explained. Patient's daughter's q uestions were answered. Informed consent was obtained. The patient was placed in the supine position. Adequate site for paracentesis was identified on the l eft. Skin was marked and prepped and draped in sterile fashion. Local anesthesia was infused. 18-gaug e needle connected to a 60 cc syringe was inserted into the peritoneal cavity. Suction was applied to the syringe. As soon as peritoneal fluid entered the syringe advancement of the needle was stopped. Approximately 60 mL's of fluid was withdrawn. There were no immediate complications. Specimen was col lected for the requested laboratory studies. Impression: Successful ultrasound-guided paracentesis. Signer Name: Frank Caldwell DO Signed: 12/13/2020 4:44 PM Workstation Name: [id number]
[2020-12-13] MEDS: LACTULOSE 20 GM/30 ML ORAL LIQD PO SCH ×2 (18:40→23:53)
[2020-12-13 22:02] LABS: Total Cells Counted 100 /mm3
[2020-12-13] MEDS: RIFAXIMIN 550 MG TAB PO SCH (23:44)
[2020-12-14] MEDS: LACTULOSE 20 GM/30 ML ORAL LIQD PO SCH ×3 (05:18→17:04)
[2020-12-14] MEDS: HEPARIN 5,000 UNIT/1 ML VIAL SUB-Q SCH ×3 (05:18→21:25)
[2020-12-14 05:45] LABS: Alanine Aminotransferase 44 units/L (7-56); Albumin 3.9 g/dL (3.9-5); BUN/Creatinine Ratio 115; Blood Urea Nitrogen 23 mg/dL (9-20); Calcium 8.9 mg/dL (8.4-10.2); Hemolysis Index 5
[2020-12-14] MEDS: POTASSIUM CHLORIDE ER 20 MEQ TAB PO SCH ×2 (06:02→09:28)
[2020-12-14] MEDS: LACTULOSE ENEMA 1000 ML PR SCH (08:35)
--- NOTE | 2020-12-14 09:09 | Progress Note ---
Assessment and Plan Assessment and plan: 50 YO Male with ETOH Dependence presents to ED for evaluation. Patient reports "I feel short of breath". Patient states that he has experienced shortness of breath, intermittent chest palpitations, as well as chest discomfort over the past 2 days with increased duration and frequency of the aforementioned symptoms over the same timeframe. EMS was notified and upon arrival the patient was found to be in distress and subsequently transported to [facility] for further care and evaluation of the aforementioned symptoms. The patient family reports that patient has been "feeling sick" and has been drinking a lot of alcohol over the past 1 week. Patient seen and evaluated in the emergency department. All lab and imaging studies reviewed. 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 Patient treated with medical cardioversion Acute kidney injury with acute tubular necrosis. Acute heart failure with reduced ejection fraction. EF 10-15%. Atrial fibrillation with RVR. Hyponatremia EtOH dependence EtOH liver disease Transaminitis. Anasarca Ascites Shailesh 12/06/20 Patient with atrial fibrillation with RVR, severe hyponatremia, alcoholic liver disease. Consulted Cardiology, GI and Nephrology. Started on Amiodarone, iv fluids, Thiamine Sodium 114 12/07/20 Patient with atrial fibrillation with RVR, severe hyponatremia, alcoh olic liver disease. Cardiology, GI and Nephrology following. Started on Amiodarone, iv fluids, Thiamine Sodium 117 today, slight increased 12/08/20 Patient with atrial fibrillation with RVR, severe hyponatremia, alcoholic liver disease. Cardiology, GI and Nephrology following. On Amiodarone, iv fluids, Thiamine Sodium 112 today, worsening I discussed case with GI. She is contemplating poss starting steroids. Will order Coronavirus PCR as suggested by GI. Repeat CXR today. 12/09/20 Patient with atrial fibrillation with RVR, severe hyponatremia, alcoholic liver disease. Cardiology, GI and Nephrology following. On Amiodarone, iv fluids, Thiamine Sodium 114 today, Hyperkalemia with Potassium 5.4. Give kayexalate I discussed case with GI. She has started him on Prednisone. Ordered Coronavirus PCR as suggested by GI. Place manjarrez as Nurse had difficulty obtaining urine because of edema of penis, scrotum. 12/10/20 Patient with atrial fibrillation with RVR, severe hyponatremia, alcoholic liver disease. Cardiology, GI and Nephrology following. iv fluids, Thiamine Sodium improving, 122 today, Hyperkalemia now resolved after kayexalate I discussed case with GI. She has started him on Prednisone for alcoholic hepatitis Ordered Coronavirus PCR as suggested by GI, negative Covid. Placed manjarrez as Nurse had difficulty obtaining urine because of edema of penis, scrotum. 12/11/2020. Patient rate well controlled at this particular time. Patient in bed somewhat agitated in restraints. Initial exam consistent with delirium tremors alcohol withdrawal 12/12/2020. Patient remains restrained. Signs and symptoms as well as presentation consistent with alcohol withdrawal. No new events overnight. No rhythm changes over p.m. 12/13/2020. Patient continues to require restraints. Continue CIWA protocol. INR remains elevated at 1.81. Sodium improved to 138. Replete potassium which is at 3.3 today. Diagnostic paracentesis per GI. Continue lactulose via rectal route. We will attempt to avoid benzodiazepines as they may be worsening the altered mentation. Follow-up hepatic function and coags. 12/14/2020. Patient remains confused with DTs and requires restraints. Check ammonia level. Continue CIWA protocol. INR elevated. Diagnostic paracentesis per GI. Continue lactulose. GI following. Continue digoxin and metoprolol for rate control. Cardiology recommends starting Eliquis once liver status stable. I will discuss with cardiology given the elevated INR. History Interval history: No new issues overnight. Hospitalist Physical - Constitutional Vitals: Temp Pulse Resp BP Pulse Ox 99.1 F 92 H 20 132/93 92 12/14/20 03:27 12/14/20 03:27 12/14/20 08:42 12/14/20 03:27 12/14/20 08:53 General appearance: Present: no acute distress, other (Restrained agitated with tremors.) - EENT Eyes: Present: PERRL, EOM intact ENT: hearing intact, clear oral mucosa, dentition normal - Neck Neck: Present: supple, normal ROM - Respiratory Respiratory effort: normal Respiratory: bilateral: CTA - Cardiovascular Rhythm: regular Heart Sounds: Present: S1 & S2. Absent: gallop, rub - Extremities Extremities: no ischemia, No edema, Full ROM - Abdominal General gastrointestinal: soft, non-tender, non-distended, normal bowel sounds - Integumentary Integumentary: Present: clear, warm, dry - Neurologic Neurologic: CNII-XII intact, moves all extremities HEART Score - HEART Score Troponin: Troponin T < 0.010 ng/mL (0.00-0.029) 12/07/20 04:51 Results - Labs CBC & Chem 7: 12/13/20 05:18 12/14/20 05:00 Labs: Laboratory Last Values WBC 9.6 K/mm3 (4.5-11.0) 12/13/20 05:18 RBC 3.10 M/mm3 (3.65-5.03) L 12/13/20 05:18 Hgb 9.5 gm/dl (11.8-15.2) L 12/13/20 05:18 Hct 30.0 % (35.5-45.6) L 12/13/20 05:18 MCV 97 fl (84-94) H 12/13/20 05:18 MCH 31 pg (28-32) 12/13/20 05:18 MCHC 32 % (32-34) 12/13/20 05:18 RDW 24.2 % (13.2-15.2) H 12/13/20 05:18 Plt Count 151 K/mm3 (140-440) 12/13/20 05:18 Add Manual Diff Complete 12/13/20 05:18 Total Counted 100 12/13/20 05:18 Seg Neutrophils % Thermodynamicist 12/13/20 05:18 Seg Neuts % (Manual) 79.0 % (40.0-70.0) H 12/13/20 05:18 Band Neutrophils % 14.0 % 12/13/20 05:18 Lymphocytes % (Manual) 4.0 % (13.4-35.0) L 12/05/20 14:14 Monocytes % (Manual) 6.0 % (0.0-7.3) 12/13/20 05:18 Eosinophils % (Manual) 1.0 % (0.0-4.3) 12/05/20 14:14 Myelocytes % 1.0 % 12/13/20 05:18 Nucleated RBC % Not Reportable 12/13/20 05:18 Seg Neutrophils # Man 7.6 K/mm3 (1.8-7.7) 12/13/20 05:18 Band Neutrophils # 1.3 K/mm3 12/13/20 05:18 Lymphocytes # (Manual) 0.0 K/mm3 (1.2-5.4) L 12/13/20 05:18 Abs React Lymphs (Man) 0.0 K/mm3 12/13/20 05:18 Monocytes # (Manual) 0.6 K/mm3 (0.0-0.8) 12/13/20 05:18 Eosinophils # (Manual) 0.0 K/mm3 (0.0-0.4) 12/13/20 05:18 Basophils # (Manual) 0.0 K/mm3 (0.0-0.1) 12/13/20 05:18 Metamyelocytes # 0.0 K/mm3 12/13/20 05:18 Myelocytes # 0.1 K/mm3 12/13/20 05:18 Promyelocytes # 0.0 K/mm3 12/13/20 05:18 Blast Cells # 0.0 K/mm3 12/13/20 05:18 WBC Morphology Not Reportable 12/13/20 05:18 Hypersegmented Neuts Not Reportable 12/13/20 05:18 Hyposegmented Neuts Not Reportable 12/13/20 05:18 Hypogranular Neuts Not Reportable 12/13/20 05:18 Smudge Cells Not Reportable 12/13/20 05:18 Toxic Granulation Not Reportable 12/13/20 05:18 Toxic Vacuolation Not Reportable 12/13/20 05:18 Dohle Bodies Not Reportable 12/13/20 05:18 Pelger-Huet Anomaly Not Reportable 12/13/20 05:18 Tamiko Rods Not Reportable 12/13/20 05:18 Platelet Estimate Consistent w auto 12/13/20 05:18 Clumped Platelets Not Reportable 12/13/20 05:18 Plt Clumps, EDTA Not Reportable 12/13/20 05:18 Large Platelets Not Reportable 12/13/20 05:18 Giant Platelets Not Reportable 12/13/20 05:18 Platelet Satelliting Not Reportable 12/13/20 05:18 Plt Morphology Comment Not Reportable 12/13/20 05:18 RBC Morphology Normal 12/13/20 05:18 Dimorphic RBCs Not Reportable 12/13/20 05:18 Polychromasia Not Reportable 12/13/20 05:18 Hypochromasia Not Reportable 12/13/20 05:18 Poikilocytosis Not Reportable 12/13/20 05:18 Anisocytosis Not Reportable 12/13/20 05:18 Microcytosis Not Reportable 12/13/20 05:18 Macrocytosis Not Reportable 12/13/20 05:18 Spherocytes Not Reportable 12/13/20 05:18 Pappenheimer Bodies Not Reportable 12/13/20 05:18 Sickle Cells Not Reportable 12/13/20 05:18 Target Cells 1+ 12/13/20 05:18 Tear Drop Cells Not Reportable 12/13/20 05:18 Ovalocytes Not Reportable 12/13/20 05:18 Helmet Cells Not Reportable 12/13/20 05:18 [place] Bodies Not Reportable 12/13/20 05:18 [place] Rings Not Reportable 12/13/20 05:18 [place] Cells Not Reportable 12/13/20 05:18 Bite Cells Not Reportable 12/13/20 05:18 Crenated Cell Not Reportable 12/13/20 05:18 Elliptocytes Not Reportable 12/13/20 05:18 Acanthocytes (Spur) Not Reportable 12/13/20 05:18 Rouleaux Not Reportable 12/13/20 05:18 Hemoglobin C Crystals Not Reportable 12/13/20 05:18 Schistocytes Not Reportable 12/13/20 05:18 Malaria parasites Not Reportable 12/13/20 05:18 Parrish Bodies Not Reportable 12/13/20 05:18 Hem Pathologist Commnt No 12/13/20 05:18 PT 21.4 Sec. (12.2-14.9) H 12/13/20 05:18 INR 1.81 (0.87-1.13) H 12/13/20 05:18 APTT 31.8 Sec. (24.2-36.6) 12/05/20 14:14 Sodium 142 mmol/L (137-145) 12/14/20 05:00 Potassium 2.9 mmol/L (3.6-5.0) L* 12/14/20 05:00 Chloride 101.7 mmol/L (98-107) 12/14/20 05:00 Carbon Dioxide 28 mmol/L (22-30) 12/14/20 05:00 Anion Gap 15 mmol/L 12/14/20 05:00 BUN 23 mg/dL (9-20) H 12/14/20 05:00 Creatinine < 0.2 mg/dL (0.8-1.3) L 12/14/20 05:00 Estimated GFR > 60 ml/min 12/14/20 05:00 BUN/Creatinine Ratio 115 % 12/14/20 05:00 Glucose 122 mg/dL (75-100) H 12/14/20 05:00 Calcium 8.9 mg/dL (8.4-10.2) 12/14/20 05:00 Phosphorus 2.50 mg/dL (2.5-4.5) 12/06/20 10:01 Magnesium 1.70 mg/dL (1.7-2.3) 12/14/20 05:00 Iron 61 ug/dL (49-181) 12/06/20 13:18 TIBC 326 mcg/dL (250-450) 12/06/20 13:18 Total Bilirubin 13.40 mg/dL (0.1-1.2) H 12/14/20 05:00 Direct Bilirubin 8.8 mg/dL (0-0.2) H 12/13/20 05:18 Indirect Bilirubin 6.0 mg/dL 12/13/20 05:18 AST 41 units/L (5-40) H 12/14/20 05:00 ALT 44 units/L (7-56) 12/14/20 05:00 Alkaline Phosphatase 159 units/L (35-129) H 12/14/20 05:00 Troponin T < 0.010 ng/mL (0.00-0.029) 12/07/20 04:51 Total Protein 5.6 g/dL (6.3-8.2) L 12/14/20 05:00 Albumin 3.9 g/dL (3.9-5) 12/14/20 05:00 Albumin/Globulin Ratio 2.3 % 12/14/20 05:00 TSH 1.490 mlU/mL (0.270-4.200) 12/09/20 04:44 Total Cortisol 34.0 mcg/dL () 12/09/20 04:44 Urine Color Meredith (Yellow) 12/09/20 15:48 Urine Turbidity Slightly-cloudy (Clear) 12/09/20 15:48 Urine pH 5.0 (5.0-7.0) 12/09/20 15:48 Ur Specific [place] 1.019 (1.003-1.030) 12/09/20 15:48 Urine Protein 30 mg/dl mg/dL (Negative) 12/09/20 15:48 Urine Glucose (UA) Neg mg/dL (Negative) 12/09/20 15:48 Urine Ketones Neg mg/dL (Negative) 12/09/20 15:48 Urine Blood Neg (Negative) 12/09/20 15:48 Urine Nitrite Neg (Negative) 12/09/20 15:48 Urine Bilirubin Mod (Negative) 12/09/20 15:48 Urine Ictotest 2 (Negative) 12/09/20 15:48 Urine Urobilinogen 4.0 mg/dL (<2.0) 12/09/20 15:48 Ur Leukocyte Esterase Neg (Negative) 12/09/20 15:48 Urine WBC (Auto) 31.0 /HPF (0.0-6.0) H 12/09/20 15:48 Urine RBC (Auto) 6.0 /HPF (0.0-6.0) 12/09/20 15:48 U Epithel Cells (Auto) 101.0 /HPF (0-13.0) H 12/09/20 15:48 Urine Bacteria (Auto) 1+ /HPF (Negative) 12/09/20 15:48 Urine WBC Clumps 2+ /HPF 12/09/20 15:48 Hyaline Casts 88 /LPF 12/09/20 15:48 Broad Casts 1 /LPF 12/09/20 15:48 Urine Mucus 2+ /HPF 12/09/20 15:48 Urine Osmolality 573 Mosm/kg 12/06/20 Unknown Urine Sodium 10 mmol/L 12/06/20 Unknown Fluid Type Ascitic 12/13/20 16:00 Fluid Color Yellow 12/13/20 16:00 Fluid Appearance Clear 12/13/20 16:00 Fluid WBC 9.9 /mm3 12/13/20 16:00 Fluid RBC 45.65 /mm3 12/13/20 16:00 Fluid Seg Neutrophils 0 % 12/13/20 16:00 Fluid Lymphocytes 91.0 % 12/13/20 16:00 Fluid Reactive Lymphs 0 % 12/13/20 16:00 Fluid Monocytes 9.0 % 12/13/20 16:00 Fluid Eosinophils 0 % 12/13/20 16:00 Fluid Basophils 0 % 12/13/20 16:00 Fluid Comment 12/13/20 16:00 Digoxin 0.3 ng/mL (0.9-2.0) L 12/11/20 12:14 Plasma/Serum Alcohol < 0.01 % (0-0.07) 12/05/20 14:14 Coronavirus (PCR) Negative (Negative) 12/09/20 09:29 Hepatitis A Ab Total Reactive (Nonreactive) H 12/06/20 13:18 Hep Bs Antigen Nonreactive (Negative) 12/06/20 13:18 Hep Bs Antibody, Quant <5 mIU/mL (>=10) L 12/06/20 13:18 Hepatitis C Antibody Non-reactive (NonReactive) 12/06/20 13:18 Manjarrez/IV: Voiding Method Indwelling Catheter Active Medications - Current Medications Current Medications: Generic Name Dose Route Start Last Admin Trade Name Freq PRN Reason Stop Dose Admin Albumin Human 25 gm 12/11/20 11:00 12/13/20 23:44 Albumin Human 25% (25 Gm/100 Ml) Inj IV 25 gm BID WSELEY Administration Albuterol 2.5 mg 12/05/20 17:11 12/09/20 20:33 Albuterol 2.5 Mg/3 Ml Nebu IH 2.5 mg Q4HRT PRN Administration Shortness Of Breath Digoxin 0.125 mg 12/08/20 12:00 12/13/20 09:09 Digoxin 0.125 Mg Tab PO 0.125 mg DAILY WESLEY Administration Folic Acid 1 mg 12/06/20 10:00 12/13/20 09:10 Folic Acid 1 Mg Tab PO 1 mg QDAY WESLEY Administration Furosemide 20 mg 12/11/20 11:00 12/13/20 22:14 Furosemide 20 Mg/2 Ml Inj IV 20 mg BID WESLEY Administration Heparin Sodium (Porcine) 5,000 unit 12/10/20 22:00 12/14/20 05:18 Heparin 5,000 Unit/1 Ml Vial SUB-Q 5,000 unit Q8HR WESLEY Administration Hydromorphone HCl 0.5 mg 12/05/20 17:11 12/12/20 16:05 Hydromorphone 1 Mg/1 Ml Inj IV 0.5 mg Q12H PRN Administration Pain , Severe (7-10) Ceftriaxone Sodium 1 gm in 50 mls @ 100 mls/hr 12/10/20 08:00 12/13/20 09:09 Rocephin/Ns 1 Gm/50 Ml IV 12/16/20 08:29 100 mls/hr Q24H WESLEY Administration Protocol Lactulose 20 gm 12/13/20 18:00 12/14/20 05:18 Lactulose 20 Gm/30 Ml Oral Liqd PO 20 gm Q6HR WESLEY Administration Lisinopril 2.5 mg 12/13/20 11:00 12/13/20 11:41 Lisinopril 5 Mg Tab PO 2.5 mg QDAY WESLEY Administration Lorazepam 2 mg 12/05/20 17:13 12/13/20 03:28 Lorazepam 2 Mg/Ml Vial IV 2 mg Q1HR PRN Administration [facility] 8-15 Metoprolol Tartrate 12.5 mg 12/08/20 12:00 12/13/20 22:16 Metoprolol Tartrate 25 Mg Tab PO 12.5 mg BID WESLEY Administration Morphine Sulfate 1 mg 12/05/20 17:11 12/08/20 01:48 Morphine 2 Mg/1 Ml Inj IV 1 mg Q8H PRN Administration Pain, Moderate (4-6) Multivitamins 1 each 12/06/20 10:00 12/13/20 09:09 Multivitamins ,Therapeutic Tab PO 1 each QDAY WESLEY Administration Ondansetron HCl 4 mg 12/05/20 17:11 Ondansetron 4 Mg/2 Ml Inj IV Q8H PRN Nausea And Vomiting Prednisolone Sodium Phosphate 40 mg 12/08/20 12:00 12/13/20 10:42 Prednisolone Sod Phosphate 15 Mg/5 Ml Oral Liqd PO 40 mg QDAY WESLEY Administration Rifaximin 550 mg 12/13/20 22:00 12/13/20 23:44 Rifaximin 550 Mg Tab PO 550 mg BID WESLEY Administration Sodium Chloride 10 ml 12/05/20 22:00 12/13/20 22:17 Sodium Chloride 0.9% 10 Ml Flush Syringe IV 10 ml BID WESLEY Administration Sodium Chloride 10 ml 12/05/20 17:11 12/12/20 03:25 Sodium Chloride 0.9% 10 Ml Flush Syringe IV 10 ml PRN PRN Administration LINE FLUSH Thiamine HCl 100 mg 12/06/20 10:00 12/13/20 09:09 Thiamine 100 Mg Tab PO 100 mg QDAY WESLEY Administration Nutrition/Malnutrition Assess - Dietary Evaluation Nutrition/Malnutrition Findings: Nutrition Notes Start: 12/12/20 16:31 Freq: Status: Active Protocol: Document 12/13/20 14:41 MK (Rec: 12/13/20 14:50 MK [id number]) Nutrition Notes Initial or Follow up Assessment Current Diagnosis Acute Kidney Injury Other Pertinent Diagnosis etOH dependence, Acute HfrEF Current Diet cardiac Labs/Tests K 3.3 Pertinent Medications Lasix Height 5 ft 6 in Weight 82.2 kg [place] Body Weight (kg) 64.54 BMI 29.2 Weight Status Overweight Subjective/Other Information RN reports pt does not eat well. He had 10% of breakfast. Burn Absent Trauma Absent Current % PO Negligible Minimum of two criteria No #1 Nutrition Diagnosis Inadequate oral intake Etiology decreased appetite As Evidenced by Signs and Symptoms pt ate 10% of breakfast Is patient on ventilator? No Is Patient Ambulatory and/or Out of Bed No REE-([facility]-confined to bed) 1965.324 Calculation Used for Recommendations [facility] Additional Notes protein 0.8-1.2 g/k-99 g /day fluid: 1 ml/kcal Nutrition Intervention Change Diet Order: continue Add Supplement/Snack (indicate name/kcal Ensure Enlive BID /protein ) Provides kCal: 700 Provides Protein (gm) 40 Goal #1 Meet at least 75% of protein and kcal needs via PO and ONS Anticipated Discharge Needs: cardiac Follow-Up By: 12/17/20 Additional Comments F/u: intakes and ONS tolerance
[2020-12-14] MEDS: LISINOPRIL 5 MG TAB PO SCH (09:26)
[2020-12-14] MEDS: METOPROLOL TARTRATE 25 MG TAB PO SCH ×3 (09:27→21:25)
[2020-12-14] MEDS: DIGOXIN 0.125 MG TAB PO SCH (09:27)
[2020-12-14] MEDS: RIFAXIMIN 550 MG TAB PO SCH ×2 (09:28→21:24)
[2020-12-14] MEDS: FOLIC ACID 1 MG TAB PO SCH (09:28)
[2020-12-14] MEDS: MULTIVITAMINS ,THERAPEUTIC TAB PO SCH (09:28)
[2020-12-14] MEDS: THIAMINE 100 MG TAB PO SCH (09:28)
[2020-12-14] MEDS: FUROSEMIDE 20 MG/2 ML INJ IV SCH (09:28)
[2020-12-14] MEDS: prednisoLONE SOD PHOSPHATE 15 MG/5 ML ORAL LIQD PO SCH (09:29)
[2020-12-14] MEDS: cefTRIAXone/NS 1 GM/50 ML 1 GM/50 ML BAG IV SCH (09:31)
[2020-12-14] MEDS: ALBUMIN HUMAN 25% (25 GM/100 ML) INJ IV SCH (10:23)
--- NOTE | 2020-12-14 11:21 | Progress Note ---
Assessment and Plan Patient is a 50 y/o male HFrEF Dilated cardiomyopathy Chest pain, intermittent- currently chest pain free * Twelve-lead reviewed shows atrial fibrillation with no acute ischemic changes. Troponin is negative x3. AMI ruled out * Echo 12/06/2020-EF 10 to 15% left ventricular diastolic function is indeterminate, right ventricle is mild to moderately dilated, right ventricle is severely hypokinetic, left atrium is severely dilated, mild pulmonary hypertension, mild tricuspid regurgitation, IVC is dilated IVC collapses with >50% inspiration. * Currently on Lisinopril 2.5mg PO QD A. fib RVR * Patient currently afib w/ RVR rates from 120s-180s on monitor. Patient also had 9 beat run of Vtach this AM * Currently on digoxin 0.125mg PO QD and Metoprolol 12.5mg PO BID * Recommend starting Eliquis once liver status stable. Hypokalemia Hyponatremia/hypomagnesemia (resolved) Volume Overload * Potassium being repleted. * 3+ bilateral lower extremity edema noted. On Lasix 20mg IV BID * Management per nephrology Alcoholic Liver Disease [facility] protocol for alcohol dependence * GI following * Patient had paracentesis yesterday Plan: Increase metoprolol 50mg PO BID. Initiated amio gtt. Check LFTs, BMP, CBC, dig level in AM. Will continue to follow. This patient was seen in conjunction with Dr Austin who agrees with this assessment plan of care - Patient Problems (1) HFrEF (heart failure with reduced ejection fraction) Current Visit: Yes Status: Acute (2) Dilated cardiomyopathy Current Visit: Yes Status: Acute (3) Atrial fibrillation with RVR Current Visit: Yes Status: Acute (4) Chest pain Current Visit: Yes Status: Resolved (5) Hypomagnesemia Current Visit: Yes Status: Acute (6) Hyponatremia Current Visit: Yes Status: Acute (7) Jaundice Current Visit: Yes Status: Acute (8) Alcohol dependence Current Visit: Yes Status: Chronic (9) Alcoholic liver disease Current Visit: Yes Status: Chronic Subjective Date of service: 12/14/20 Principal diagnosis: HFrEF, Afib w/RVR, Alcoholic liver disease Interval history: Patient is restrained in bed. Has no complaints Patient currently afib w/ RVR rates from 130s-180s. Patient had 9beat run of Vtach at approximately 10:20am Objective Vital Signs Temp Pulse Resp BP BP Pulse Ox 12/14/20 09:47 45 L 131/94 82 L 12/14/20 09:27 129 H 130/99 12/14/20 09:26 120 H 130/99 12/14/20 08:53 92 12/14/20 08:42 20 95 12/14/20 03:27 99.1 F 92 H 18 132/93 96 12/14/20 01:09 93 12/14/20 00:00 111 H 12/13/20 23:29 98.8 F 92 H 18 124/90 97 12/13/20 22:16 127 H 12/13/20 19:12 98.2 F 47 L 18 126/82 93 12/13/20 16:00 98.5 F 72 18 120/94 98 12/13/20 11:41 71 118/96 12/13/20 11:31 98.2 F 71 20 118/96 99 - Physical Examination General: No Apparent Distress HEENT: Positive: EOMI, Normocephaly, Mucus Membranes Moist Neck: Positive: neck supple, trachea midline, JVD/HJR Cardiac: Positive: irregularly irregular Lungs: Positive: Decreased Breath Sounds Neuro: Positive: Grossly Intact Abdomen: Positive: Active Bowel Sounds, Distended. Negative: Tender Skin: Positive: Clear Musculoskeletal: Normal Range of Motion Extremities: Present: upper extr. pulses, +3 Edema (Bilateral lower extremities) - Labs and Meds Cardiac Enzymes 12/14/20 Range/Units 05:00 AST 41 H (5-40) units/L Comprehensive Metabolic Panel 12/14/20 Range/Units 05:00 Sodium 142 (137-145) mmol/L Potassium 2.9 L* (3.6-5.0) mmol/L Chloride 101.7 (98-107) mmol/L Carbon Dioxide 28 (22-30) mmol/L BUN 23 H (9-20) mg/dL Creatinine < 0.2 L (0.8-1.3) mg/dL Glucose 122 H (75-100) mg/dL Calcium 8.9 (8.4-10.2) mg/dL AST 41 H (5-40) units/L ALT 44 (7-56) units/L Alkaline Phosphatase 159 H (35-129) units/L Total Protein 5.6 L (6.3-8.2) g/dL Albumin 3.9 (3.9-5) g/dL - Imaging and Cardiology EKG: report reviewed, image reviewed Echo: report reviewed - Telemetry EKG Rhythm: Atrial Fibrillation - EKG Supraventricular dysrhythmia: atrial fibrillation
[2020-12-14] MEDS ORDERED: AMIODARONE IV ONE (11:30)
[2020-12-14] MEDS ORDERED: WATER IV ONE (11:30)
[2020-12-14] MEDS ORDERED: DEXTROSE 5% IV ONE (11:30)
[2020-12-14] MEDS: AMIODARONE 900 MG in DEXTROSE 5% IN WATER 482 ML IV SCH (11:31)
--- NOTE | 2020-12-14 14:29 | Progress Note ---
Assessment and Plan Impression * Hyponatremia, hypervolemic * Alcoholic hepatitis * Cardiomyopathy - EF 10-15% * Transamintis * Hyperbilirubinemia * Anasarca * Alcohol abuse * Atrial fibrillation Plan: * Cotninue IV diruesis - hold afternoon dose today. He is now on 2L NC oxygen (improved from 6L at start of week) * Replete K - order noted * Mg wnl * GI recommendations noted - patient is s/p diagnostic paracentesis * Rate control per cardiology * CIWA protocol per primary team * Replete lytes prn Subjective Date of service: 12/14/20 Principal diagnosis: HFrEF, Afib w/RVR, Alcoholic liver disease Interval history: Patient is s/p diagnostic paracentesis yesterday. No acute events overnight. He is now on 2L NC oxygen Objective - Vital Signs Vital signs: Vital Signs - 12hr 12/14/20 12/14/20 12/14/20 03:27 07:55 08:42 Temperature 99.1 F Pulse Rate 92 H 115 H Respiratory 18 20 Rate Blood Pressure 132/93 O2 Sat by Pulse 96 95 Oximetry 12/14/20 12/14/20 12/14/20 08:53 09:10 09:26 Temperature Pulse Rate 183 H 120 H Respiratory Rate Blood Pressure 130/99 O2 Sat by Pulse 92 Oximetry 12/14/20 12/14/20 12/14/20 09:27 09:47 11:31 Temperature Pulse Rate 129 H 45 L 130 H Respiratory Rate Blood Pressure 130/99 131/94 131/94 O2 Sat by Pulse 82 L Oximetry - General Appearance General appearance: well-developed, well-nourished EENT: ATNC Respiratory: Present: Clear to Ascultation Cardiology: regular, S1S2 Gastrointestinal: normal, no tenderness, no distended Integumentary: other (jaundiced) Psychiatric: cooperative - Lab 12/13/20 05:18 12/14/20 05:00 Most recent lab results Calcium 8.9 mg/dL (8.4-10.2) 12/14/20 05:00 Phosphorus 2.50 mg/dL (2.5-4.5) 12/06/20 10:01 Magnesium 1.70 mg/dL (1.7-2.3) 12/14/20 05:00 Urine Sodium 10 mmol/L 12/06/20 Unknown Medications & Allergies - Medications Allergies/Adverse Reactions: Allergies No Known Allergies Allergy (Unverified 12/05/20 15:43) Home Medications: Home Medications Medication Instructions Recorded Confirmed Last Taken Type No Known Home Medications [No 12/08/20 12/08/20 Unknown History Reported Home Medications] Active Medications: Generic Name Dose Route Start Last Admin Trade Name Freq PRN Reason Stop Dose Admin Albuterol 2.5 mg 12/05/20 17:11 12/09/20 20:33 Albuterol 2.5 Mg/3 Ml Nebu IH 2.5 mg Q4HRT PRN Administration Shortness Of Breath Digoxin 0.125 mg 12/08/20 12:00 12/14/20 09:27 Digoxin 0.125 Mg Tab PO 0.125 mg DAILY WESLEY Administration Folic Acid 1 mg 12/06/20 10:00 12/14/20 09:28 Folic Acid 1 Mg Tab PO 1 mg QDAY WESLEY Administration Heparin Sodium (Porcine) 5,000 unit 12/10/20 22:00 12/14/20 05:18 Heparin 5,000 Unit/1 Ml Vial SUB-Q 5,000 unit Q8HR WESLEY Administration Hydromorphone HCl 0.5 mg 12/05/20 17:11 12/12/20 16:05 Hydromorphone 1 Mg/1 Ml Inj IV 0.5 mg Q12H PRN Administration Pain , Severe (7-10) Ceftriaxone Sodium 1 gm in 50 mls @ 100 mls/hr 12/10/20 08:00 12/14/20 09:31 Rocephin/Ns 1 Gm/50 Ml IV 12/16/20 08:29 100 mls/hr Q24H WESLEY Administration Protocol Amiodarone HCl 900 mg/ 500 mls @ 16.667 mls/hr 12/14/20 11:30 12/14/20 11:31 Dextrose IV 0.5 mg/min DIRECT WESLEY 16.667 mls/hr Administration Protocol 0.5 MG/MIN Lactulose 20 gm 12/13/20 18:00 12/14/20 11:32 Lactulose 20 Gm/30 Ml Oral Liqd PO 20 gm Q6HR WESLEY Administration Lisinopril 2.5 mg 12/13/20 11:00 12/14/20 09:26 Lisinopril 5 Mg Tab PO 2.5 mg QDAY WESLEY Administration Lorazepam 2 mg 12/05/20 17:13 12/13/20 03:28 Lorazepam 2 Mg/Ml Vial IV 2 mg Q1HR PRN Administration MIKAYLA-Mauro 8-15 Metoprolol Tartrate 50 mg 12/14/20 11:30 12/14/20 11:31 Metoprolol Tartrate 25 Mg Tab PO 50 mg BID WESLEY Administration Morphine Sulfate 1 mg 12/05/20 17:11 12/08/20 01:48 Morphine 2 Mg/1 Ml Inj IV 1 mg Q8H PRN Administration Pain, Moderate (4-6) Multivitamins 1 each 12/06/20 10:00 12/14/20 09:28 Multivitamins ,Therapeutic Tab PO 1 each QDAY WESLEY Administration Ondansetron HCl 4 mg 12/05/20 17:11 Ondansetron 4 Mg/2 Ml Inj IV Q8H PRN Nausea And Vomiting Prednisolone Sodium Phosphate 40 mg 12/08/20 12:00 12/14/20 09:29 Prednisolone Sod Phosphate 15 Mg/5 Ml Oral Liqd PO 40 mg QDAY WESLEY Administration Rifaximin 550 mg 12/13/20 22:00 12/14/20 09:28 Rifaximin 550 Mg Tab PO 550 mg BID WESLEY Administration Sodium Chloride 10 ml 12/05/20 22:00 12/14/20 09:33 Sodium Chloride 0.9% 10 Ml Flush Syringe IV 10 ml BID WESLEY Administration Sodium Chloride 10 ml 12/05/20 17:11 12/12/20 03:25 Sodium Chloride 0.9% 10 Ml Flush Syringe IV 10 ml PRN PRN Administration LINE FLUSH Thiamine HCl 100 mg 12/06/20 10:00 12/14/20 09:28 Thiamine 100 Mg Tab PO 100 mg QDAY WESLEY Administration
--- NOTE | 2020-12-14 16:39 | Gastroenterology Progress Note ---
Assessment and Plan 50 yo male admitted for anasarca, afib with RVR, CHF with EF 10-15 % on TTE, and severe hyponatremia. Rec s/p para appreciate cards help to Optimize cardiac status -For encephalopathy continue lactulose, goal 3 soft but formed bm/day, if he does not take orally please change order to rectal route. Suspect etiology of confusion multifactorial (alcohol withdrawal, etc), but overall he is improving today which is reassuring - due to elevated Maddrey score will continue current dose prednisilone for now, showing good response with decrease in Tbili, continue Therefore continue prednisolone for 28 days, and finish therapy with a 16-day prednisolone taper -- decrease the dose by 10 mg per day every four days until a dose of 10 mg per day is reached, at which point decrease it by 5 mg per day every three days - continue to avoid hepato toxic medications. - Patient Problems (1) Jaundice Current Visit: Yes Status: Acute (2) Hyponatremia Current Visit: Yes Status: Acute (3) Alcohol dependence Current Visit: Yes Status: Chronic Subjective Date of service: 12/14/20 Principal diagnosis: HFrEF, Afib w/RVR, Alcoholic liver disease Interval history: Patient is improved today, he is still confused but awake and responding to questions Objective - Constitutional Vitals: Temp Pulse Resp BP Pulse Ox 97.9 F 50 L 22 143/83 100 12/14/20 12:45 12/14/20 12:45 12/14/20 12:45 12/14/20 12:45 12/14/20 12:45 General appearance: no acute distress - EENT Eyes: scleral icterus - Neck Neck: supple - Respiratory Respiratory effort: normal - Gastrointestinal General gastrointestinal: Present: non-tender, distended - Labs CBC & Chem 7: 12/13/20 05:18 12/14/20 05:00 Labs: Laboratory Results - last 24 hr 12/13/20 12/14/20 12/14/20 16:00 05:00 10:05 Sodium 142 Potassium 2.9 L* Chloride 101.7 Carbon Dioxide 28 Anion Gap 15 BUN 23 H Creatinine < 0.2 L Estimated GFR > 60 BUN/Creatinine Ratio 115 Glucose 122 H Calcium 8.9 Magnesium 1.70 Total Bilirubin 13.40 H AST 41 H ALT 44 Alkaline Phosphatase 159 H Ammonia 35.0 Total Protein 5.6 L Albumin 3.9 Albumin/Globulin Ratio 2.3 Fluid Type Ascitic Fluid Color Yellow Fluid Appearance Clear Fluid WBC 9.9 Fluid RBC 45.65 Fluid Seg Neutrophils 0 Fluid Lymphocytes 91.0 Fluid Reactive Lymphs 0 Fluid Monocytes 9.0 Fluid Eosinophils 0 Fluid Basophils 0 Fluid Comment
[2020-12-15] MEDS: LACTULOSE 20 GM/30 ML ORAL LIQD PO SCH ×4 (06:01→21:27)
[2020-12-15] MEDS: HEPARIN 5,000 UNIT/1 ML VIAL SUB-Q SCH ×3 (06:02→21:27)
[2020-12-15 08:40] LABS: Hematocrit 31.1 % (35.5-45.6); Hemoglobin 9.7 gm/dl (11.8-15.2); Mean Corpuscular HGB Conc 31 % (32-34); Mean Corpuscular Volume 100 fl (84-94); Platelet Count 101 K/mm3 (140-440); Red Blood Count 3.12 M/mm3 (3.65-5.03)
[2020-12-15 08:50] LABS: Alanine Aminotransferase 59 units/L (7-56); Albumin 4.2 g/dL (3.9-5); Bilirubin,Direct 8.6 mg/dL (0-0.2); Blood Urea Nitrogen 29 mg/dL (9-20); Calcium 9.6 mg/dL (8.4-10.2); Hemolysis Index 13
[2020-12-15 09:16] LABS: BUN/Creatinine Ratio 145
--- NOTE | 2020-12-15 09:45 | Gastroenterology Progress Note ---
Assessment and Plan - Patient Problems (1) Alcoholic cirrhosis of liver with ascites Current Visit: Yes Status: Acute Plan to address problem: - Patient stable, and will begin transition to PO meds in transition to outpatient management - Continue low-salt diet, protonix, MVI therapy - Patient is hospital day 9, and EtOH W/D should be completed by now; will stop CIWA (as benzos will make eval of encephalopathy more confusing) - Diuretics per Renal; remains in overload but kidney function stable (2) Encephalopathy acute Current Visit: Yes Status: Acute Plan to address problem: - Likely combination of EtOH w/d, PSE, malnutrition, acute illness - Appears to be improving - Will stop all benzos and narcotics for now - Continue xifaxan; multiple BM/day, and will start wean off of lactulose (3) Atrial fibrillation with RVR Current Visit: Yes Status: Acute Plan to address problem: - Patient on amiodarone per Cardiology; will need daily LFT monitoring (4) Dilated cardiomyopathy Current Visit: Yes Status: Acute Subjective Date of service: 12/15/20 Principal diagnosis: Alcoholic Liver Disease Interval history: The patient is awake and alert/eating breakfast. Lucid and follows commands/answers questions (in Yakut). Nursing reports multiple BM and no blood in the stools. No tremors noted. Objective - Constitutional Vitals: Temp Pulse Resp BP Pulse Ox 98.6 F 99 H 18 158/63 97 12/15/20 08:38 12/15/20 08:38 12/15/20 08:38 12/15/20 08:38 12/15/20 09:02 General appearance: no acute distress - EENT Eyes: PERRL, scleral icterus ENT: hearing intact, clear oral mucosa - Respiratory Respiratory effort: normal Respiratory: bilateral: CTA - Cardiovascular Rhythm: regularly irregular Heart Sounds: Present: S1 & S2 - Gastrointestinal General gastrointestinal: Present: soft, non-tender, distended (Moderate ascites) - Integumentary Integumentary: Present: clear, warm, dry - Neurologic Neurological: oriented to person, oriented to place, other (No asterixis or t remor) - Labs CBC & Chem 7: 12/15/20 07:44 12/15/20 07:44 Labs: Laboratory Results - last 24 hr 09/17/21 09/18/21 09/18/21 10:05 07:44 07:44 WBC 11.2 H RBC 3.12 L Hgb 9.7 L Hct 31.1 L MCV 100 H MCH 31 MCHC 31 L RDW 24.0 H Plt Count 101 L Sodium 143 Potassium 3.4 L Chloride 101.0 Carbon Dioxide 29 Anion Gap 16 BUN 29 H Creatinine < 0.2 L Estimated GFR > 60 BUN/Creatinine Ratio 145 Glucose 113 H Calcium 9.6 Total Bilirubin 13.90 H Direct Bilirubin 8.6 H Indirect Bilirubin 5.3 AST 69 H ALT 59 H Alkaline Phosphatase 200 H Ammonia 35.0 Total Protein 6.2 L Albumin 4.2 Albumin/Globulin Ratio 2.1
[2020-12-15] MEDS: cefTRIAXone/NS 1 GM/50 ML 1 GM/50 ML BAG IV SCH (10:25)
[2020-12-15] MEDS: PANTOPRAZOLE 40 MG TAB PO SCH ×2 (10:25→14:15)
[2020-12-15] MEDS: LISINOPRIL 5 MG TAB PO SCH (10:25)
[2020-12-15] MEDS: MULTIVITAMINS ,THERAPEUTIC TAB PO SCH (10:26)
[2020-12-15] MEDS: RIFAXIMIN 550 MG TAB PO SCH ×2 (10:26→21:28)
[2020-12-15] MEDS: METOPROLOL TARTRATE 25 MG TAB PO SCH ×2 (10:26→21:27)
[2020-12-15] MEDS: DIGOXIN 0.125 MG TAB PO SCH (10:26)
--- NOTE | 2020-12-15 11:20 | Progress Note ---
Assessment and Plan Patient is a 50 y/o male: HFrEF Dilated cardiomyopathy Chest pain, intermittent- currently chest pain free * Twelve-lead reviewed shows atrial fibrillation with no acute ischemic changes. Troponin is negative x3. AMI ruled out * Echo 12/06/2020-EF 10 to 15% left ventricular diastolic function is indeterminate, right ventricle is mild to moderately dilated, right ventricle is severely hypokinetic, left atrium is severely dilated, mild pulmonary hypertension, mild tricuspid regurgitation, IVC is dilated IVC collapses with >50% inspiration. * Currently on Lisinopril 2.5mg PO QD A. fib RVR -> CVR * Patient currently afib w/ RVR rates from 120s-180s on monitor. Patient also had 9 beat run of Vtach this AM * Currently on digoxin 0.125mg PO QD and Metoprolol 12.5mg PO BID * Recommend starting Eliquis once liver status stable. * iv amoi gtt Volume Overload * Potassium being repleted. * 3+ bilateral lower extremity edema noted. On Lasix 20mg IV BID * Management per nephrology Alcoholic Liver Disease [facility] protocol for alcohol dependence * GI following * Patient had paracentesis Plan: Increase metoprolol 50mg PO BID. Cont amio gtt. Will continue to follow. This patient was seen in conjunction with Dr Austin who agrees with this assessment plan of care Subjective Principal diagnosis: Alcoholic Liver Disease Interval history: no sxs Objective Vital Signs Temp Pulse Resp BP BP Pulse Ox 12/15/20 09:02 97 12/15/20 08:38 98.6 F 99 H 18 158/63 97 12/15/20 04:12 98.6 F 72 18 118/89 99 12/15/20 03:16 95 12/15/20 00:00 98.6 F 73 18 111/87 96 12/14/20 22:00 79 98 12/14/20 20:13 98.6 F 68 18 121/68 12/14/20 17:00 98.2 F 67 20 120/71 98 12/14/20 16:04 80 120/91 98 12/14/20 15:58 42 L 96 12/14/20 12:45 97.9 F 50 L 22 143/83 100 12/14/20 11:31 130 H 131/94 - Physical Examination General: No Apparent Distress HEENT: Positive: EOMI, Normocephaly, Mucus Membranes Moist Neck: Positive: neck supple, trachea midline, JVD/HJR Neuro: Positive: Grossly Intact Abdomen: Positive: Active Bowel Sounds, Distended. Negative: Tender Skin: Positive: Clear Musculoskeletal: Normal Range of Motion Extremities: Present: upper extr. pulses, +3 Edema (Bilateral lower extremities) - Labs and Meds Cardiac Enzymes 12/15/20 Range/Units 07:44 AST 69 H (5-40) units/L CBC 12/15/20 Range/Units 07:44 WBC 11.2 H (4.5-11.0) K/mm3 RBC 3.12 L (3.65-5.03) M/mm3 Hgb 9.7 L (11.8-15.2) gm/dl Hct 31.1 L (35.5-45.6) % Plt Count 101 L (140-440) K/mm3 Comprehensive Metabolic Panel 12/15/20 Range/Units 07:44 Sodium 143 (137-145) mmol/L Potassium 3.4 L (3.6-5.0) mmol/L Chloride 101.0 (98-107) mmol/L Carbon Dioxide 29 (22-30) mmol/L BUN 29 H (9-20) mg/dL Creatinine < 0.2 L (0.8-1.3) mg/dL Glucose 113 H (75-100) mg/dL Calcium 9.6 (8.4-10.2) mg/dL Direct Bilirubin 8.6 H (0-0.2) mg/dL Indirect Bilirubin 5.3 mg/dL AST 69 H (5-40) units/L ALT 59 H (7-56) units/L Alkaline Phosphatase 200 H (35-129) units/L Total Protein 6.2 L (6.3-8.2) g/dL Albumin 4.2 (3.9-5) g/dL - Imaging and Cardiology EKG: report reviewed, image reviewed Echo: report reviewed - EKG Sinus rhythms and dysrhythmias: sinus rhythm
--- NOTE | 2020-12-15 12:06 | Progress Note ---
Assessment and Plan Impression * Hyponatremia, hypervolemic * Alcoholic hepatitis * Cardiomyopathy - EF 10-15% * Transamintis * Hyperbilirubinemia * Anasarca * Alcohol abuse * Atrial fibrillation Plan: * Continue IV diruesis Lasix/Albumin daily. He is now on 2L [place] oxygen (improved from 6L at start of week) * Replete K prn * GI following - patient is s/p diagnostic paracentesis * Rate control per cardiology * CIWA protocol per primary team * Replete lytes prn Subjective Date of service: 12/15/20 Principal diagnosis: Alcoholic Liver Disease Interval history: No acute events overnight. NC 4L presently Objective - Vital Signs Vital signs: Vital Signs - 12hr 12/15/20 12/15/20 12/15/20 03:16 04:12 08:38 Temperature 98.6 F 98.6 F Pulse Rate 72 99 H Respiratory 18 18 Rate Blood Pressure 118/89 Blood Pressure 158/63 [Left] O2 Sat by Pulse 95 99 97 Oximetry 12/15/20 09:02 Temperature Pulse Rate Respiratory Rate Blood Pressure Blood Pressure [Left] O2 Sat by Pulse 97 Oximetry - General Appearance General appearance: well-developed, well-nourished EENT: ATNC, sclera incterus Neck: no JVD Respiratory: Present: Decreased Breath Sounds Cardiology: irregular, S1S2 Gastrointestinal: tenderness, distended Integumentary: warm and dry Musculoskeletal: other (2+ edema) - Lab 12/15/20 07:44 12/15/20 07:44 Most recent lab results Calcium 9.6 mg/dL (8.4-10.2) 12/15/20 07:44 Phosphorus 2.50 mg/dL (2.5-4.5) 12/06/20 10:01 Magnesium 1.70 mg/dL (1.7-2.3) 12/14/20 05:00 Urine Sodium 10 mmol/L 12/06/20 Unknown Medications & Allergies - Medications Allergies/Adverse Reactions: Allergies No Known Allergies Allergy (Unverified 12/05/20 15:43) Home Medications: Home Medications Medication Instructions Recorded Confirmed Last Taken Type No Known Home Medications [No 12/08/20 12/08/20 Unknown History Reported Home Medications] Active Medications: Generic Name Dose Route Start Last Admin Trade Name Freq PRN Reason Stop Dose Admin Albuterol 2.5 mg 12/05/20 17:11 12/09/20 20:33 Albuterol 2.5 Mg/3 Ml Nebu IH 2.5 mg Q4HRT PRN Administration Shortness Of Breath Digoxin 0.125 mg 12/08/20 12:00 12/15/20 10:26 Digoxin 0.125 Mg Tab PO 0.125 mg DAILY WESLEY Administration Heparin Sodium (Porcine) 5,000 unit 12/10/20 22:00 12/15/20 06:02 Heparin 5,000 Unit/1 Ml Vial SUB-Q 5,000 unit Q8HR WESLEY Administration Ceftriaxone Sodium 1 gm in 50 mls @ 100 mls/hr 12/10/20 08:00 12/15/20 10:25 Rocephin/Ns 1 Gm/50 Ml IV 12/16/20 08:29 100 mls/hr Q24H WESLEY Administration Protocol Amiodarone HCl 900 mg/ 500 mls @ 16.667 mls/hr 12/14/20 11:30 12/14/20 11:31 Dextrose IV 0.5 mg/min DIRECT WESLEY 16.667 mls/hr Administration Protocol 0.5 MG/MIN Lactulose 20 gm 12/15/20 10:00 12/15/20 10:25 Lactulose 20 Gm/30 Ml Oral Liqd PO 20 gm BID WESLEY Administration Lisinopril 2.5 mg 12/13/20 11:00 12/15/20 10:25 Lisinopril 5 Mg Tab PO 2.5 mg QDAY WESLEY Administration Metoprolol Tartrate 50 mg 12/14/20 11:30 12/15/20 10:26 Metoprolol Tartrate 25 Mg Tab PO 50 mg BID WESLEY Administration Multivitamins 1 each 12/06/20 10:00 12/15/20 10:26 Multivitamins ,Therapeutic Tab PO 1 each QDAY WESLEY Administration Ondansetron HCl 4 mg 12/05/20 17:11 Ondansetron 4 Mg/2 Ml Inj IV Q8H PRN Nausea And Vomiting Pantoprazole Sodium 40 mg 12/15/20 12:00 12/15/20 10:25 Pantoprazole 40 Mg Tab PO 40 mg QDAC WESLEY Administration Prednisolone Sodium Phosphate 20 mg 12/15/20 11:00 Prednisolone Sod Phosphate 15 Mg/5 Ml Oral Liqd PO 12/19/20 10:01 QDAY WESLEY Rifaximin 550 mg 12/13/20 22:00 12/15/20 10:26 Rifaximin 550 Mg Tab PO 550 mg BID WESLEY Administration Sodium Chloride 10 ml 12/05/20 22:00 12/15/20 10:27 Sodium Chloride 0.9% 10 Ml Flush Syringe IV 10 ml BID WESLEY Administration Sodium Chloride 10 ml 12/05/20 17:11 12/12/20 03:25 Sodium Chloride 0.9% 10 Ml Flush Syringe IV 10 ml PRN PRN Administration LINE FLUSH
[2020-12-15] MEDS: AMIODARONE 900 MG in DEXTROSE 5% IN WATER 482 ML IV SCH (12:32)
--- NOTE | 2020-12-15 12:36 | Progress Note ---
Assessment and Plan - Patient Problems (1) Acute HFrEF (heart failure with reduced ejection fraction) Current Visit: Yes Status: Acute Plan to address problem: IV Lasix for now Echocardiogram for ejection fraction Patient has a low ejection fraction (2) Acute kidney injury (ASHLYN) with acute tubular necrosis (ATN) Current Visit: Yes Status: Acute Plan to address problem: Resolved (3) Atrial fibrillation with RVR Current Visit: Yes Status: Acute Plan to address problem: Patient had medical cardioversion in the emergency room Patient on amiodarone and Eliquis Continue amiodarone drip (4) EtOH dependence Current Visit: Yes Status: Chronic Qualifiers: Substance use status: in withdrawal Plan to address problem: On CIWA protocol (5) Transaminitis Current Visit: Yes Status: Acute Plan to address problem: Trend liver enzymes (6) Ascites Current Visit: Yes Status: Acute Qualifiers: Ascites type: due to alcoholic cirrhosis Qualified Code(s): K70.31 - Alcoholic cirrhosis of liver with ascites Plan to address problem: Next paracentesis (7) DVT prophylaxis Current Visit: Yes Status: Acute Plan to address problem: On Eliquis and GI prophylaxis Subjective Date of service: 12/15/20 Principal diagnosis: Alcoholic Liver Disease Interval history: Assessment and Plan 50 YO Male with ETOH Dependence presents to ED for evaluation. Patient reports "I feel short of breath". Patient states that he has experienced shortness of breath, intermittent chest palpitations, as well as chest discomfort over the past 2 days with increased duration and frequency of the aforementioned symptoms over the same timeframe. EMS was notified and upon arrival the patient was found to be in distress and subsequently transported to [facility] for further care and evaluation of the aforementioned symptoms. The patient family reports that patient has been "feeling sick" and has been drinking a lot of alcohol over the past 1 week. Patient seen and evaluated in the emergency department. All lab and imaging studies reviewed. 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 Patient treated with medical cardioversion 12/06/20 Patient with atrial fibrillation with RVR, severe hyponatremia, alcoholic liver disease. Consulted Cardiology, GI and Nephrology. Started on Amiodarone, iv fluids, Thiamine Sodium 114 12/07/20 Patient with atrial fibrillation with RVR, severe hyponatremia, alcoholic liver disease. Cardiology, GI and Nephrology following. Started on Amiodarone, iv fluids, Thiamine Sodium 117 today, slight increased 12/08/20 Patient with atrial fibrillation with RVR, severe hyponatremia, alcoholic liver disease. Cardiology, GI and Nephrology following. On Amiodarone, iv fluids, Thiamine Sodium 112 today, worsening I discussed case with GI. She is contemplating poss starting steroids. Will order Coronavirus PCR as suggested by GI. Repeat CXR today. 12/09/20 Patient with atrial fibrillation with RVR, severe hyponatremia, alcoholic liver disease. Cardiology, GI and Nephrology following. On Amiodarone, iv fluids, Thiamine Sodium 114 today, Hyperkalemia with Potassium 5.4. Give kayexalate I discussed case with GI. She has started him on Prednisone. Ordered Coronavirus PCR as suggested by GI. Place manjarrez as Nurse had difficulty obtaining urine because of edema of penis, scrotum. 12/10/20 Patient with atrial fibrillation with RVR, severe hyponatremia, alcoholic liver disease. Cardiology, GI and Nephrology following. iv fluids, Thiamine Sodium improving, 122 today, Hyperkalemia now resolved after kayexalate I discussed case with GI. She has started him on Prednisone for alcoholic hepatitis Ordered Coronavirus PCR as suggested by GI, negative Covid. Placed manjarrez as Nurse had difficulty obtaining urine because of edema of penis, scrotum. 12/11/2020. Patient rate well controlled at this particular time. Patient in bed somewhat agitated in restraints. Initial exam consistent with delirium t remors alcohol withdrawal 12/12/2020. Patient remains restrained. Signs and symptoms as well as pr esentation consistent with alcohol withdrawal. No new events overnight. No rhythm changes over p.m. 12/13/2020. Patient continues to require restraints. Continue CIWA protocol. INR remains elevated at 1.81. Sodium improved to 138. Replete potassium which is at 3.3 today. Diagnostic paracentesis per GI. Continue lactulose via rectal route. We will attempt to avoid benzodiazepines as they may be worsening the altered mentation. Follow-up hepatic function and coags. 12/14/2020. Patient remains confused with DTs and requires restraints. Check ammonia level. Continue CIWA protocol. INR elevated. Diagnostic paracentesis per GI. Continue lactulose. GI following. Continue digoxin and metoprolol for rate control. Cardiology recommends starting Eliquis once liver status stable. I will discuss with cardiology given the elevated INR. 12/15/2020 Patient in DTs Severe ascites Needs paracentesis Objective - Constitutional Vitals: Vital Signs - 12hr 12/15/20 12/15/20 12/15/20 03:16 04:12 08:38 Temperature 98.6 F 98.6 F Pulse Rate 72 99 H Pulse Rate [ Apical] Respiratory 18 18 Rate Blood Pressure 118/89 Blood Pressure 158/63 [Left] O2 Sat by Pulse 95 99 97 Oximetry 12/15/20 12/15/20 12/15/20 09:02 11:35 12:00 Temperature 98.4 F Pulse Rate 81 89 Pulse Rate [ 89 Apical] Respiratory 18 Rate Blood Pressure 115/82 Blood Pressure [Left] O2 Sat by Pulse 97 98 96 Oximetry General appearance: Present: mild distress, well-nourished - EENT Eyes: PERRL, EOM intact ENT: hearing intact, clear oral mucosa Ears: bilateral: normal - Neck Neck: supple, normal ROM - Respiratory Respiratory effort: normal Respiratory: bilateral: CTA - Breasts Breasts: normal - Cardiovascular Heart rate: 78 Rhythm: regular Heart Sounds: Present: S1 & S2. Absent: gallop, rub Extremities: pulses intact, No edema, normal color, Full ROM - Gastrointestinal General gastrointestinal: Present: deferred, soft, distended (Tight ascites), normal bowel sounds - Genitourinary Male genitourinary: normal - Integumentary Integumentary: clear, warm, dry - Musculoskeletal Musculoskeletal: 1, strength equal bilaterally - Neurologic Neurologic: moves all extremities - Psychiatric Psychiatric: memory intact, appropriate mood/affect, intact judgment & insight - Labs CBC & Chem 7: 12/16/20 14:22 12/17/20 04:28 Labs: Abnormal lab results 12/15/20 12/15/20 12/15/20 Range/Units 07:44 07:44 07:44 WBC 11.2 H (4.5-11.0) K/mm3 RBC 3.12 L (3.65-5.03) M/mm3 Hgb 9.7 L (11.8-15.2) gm/dl Hct 31.1 L (35.5-45.6) % MCV 100 H (84-94) fl MCHC 31 L (32-34) % RDW 24.0 H (13.2-15.2) % Plt Count 101 L (140-440) K/mm3 Potassium 3.4 L (3.6-5.0) mmol/L BUN 29 H (9-20) mg/dL Creatinine < 0.2 L (0.8-1.3) mg/dL Glucose 113 H (75-100) mg/dL Total Bilirubin 13.90 H (0.1-1.2) mg/dL Direct Bilirubin 8.6 H (0-0.2) mg/dL AST 69 H (5-40) units/L ALT 59 H (7-56) units/L Alkaline Phosphatase 200 H (35-129) units/L Total Protein 6.2 L (6.3-8.2) g/dL Digoxin 0.4 L (0.9-2.0) ng/mL HEART Score - HEART Score Troponin: Troponin T < 0.010 ng/mL (0.00-0.029) 12/07/20 04:51
[2020-12-15] MEDS: FUROSEMIDE 20 MG/2 ML INJ IV SCH (14:16)
[2020-12-15] MEDS: prednisoLONE SOD PHOSPHATE 15 MG/5 ML ORAL LIQD PO SCH (14:16)
[2020-12-15] MEDS: ALBUMIN HUMAN 25% (25 GM/100 ML) INJ IV SCH (14:45)
[2020-12-16 05:34] LABS: Hematocrit 29.3 % (35.5-45.6); Hemoglobin 9.3 gm/dl (11.8-15.2); Mean Corpuscular HGB Conc 32 % (32-34); Mean Corpuscular Volume 100 fl (84-94); Red Blood Count 2.94 M/mm3 (3.65-5.03)
[2020-12-16 05:35] LABS: Platelet Count 75 K/mm3 (140-440); Red Cell Distribution Width 23.8 % (13.2-15.2)
[2020-12-16 05:48] LABS: Alanine Aminotransferase 53 units/L (7-56); Albumin 3.6 g/dL (3.9-5); Blood Urea Nitrogen 27 mg/dL (9-20); Calcium 8.3 mg/dL (8.4-10.2); Hemolysis Index 27
[2020-12-16 06:03] LABS: BUN/Creatinine Ratio 135
[2020-12-16] MEDS: HEPARIN 5,000 UNIT/1 ML VIAL SUB-Q SCH (06:03)
--- NOTE | 2020-12-16 09:51 | Progress Note ---
Assessment and Plan Patient is a 50 y/o male: HFrEF Dilated cardiomyopathy Chest pain, intermittent- currently chest pain free * Twelve-lead reviewed shows atrial fibrillation with no acute ischemic changes. Troponin is negative x3. AMI ruled out * Echo 12/06/2020- EF 10 to 15% * Currently on Lisinopril 2.5mg PO QD A. fib RVR -> CVR * currently cvr * Currently on digoxin 0.125mg PO QD and Metoprolol 12.5mg PO BID * Start Eliquis (dc heparin sq) if ok w GI. * iv amoi gtt Volume Overload * Potassium being repleted. * 3+ bilateral lower extremity edema noted. On Lasix 20mg IV BID * Management per nephrology Alcoholic Liver Disease [facility] protocol for alcohol dependence * GI following * Patient had paracentesis Subjective Principal diagnosis: Alcoholic Liver Disease Interval history: no sxs Objective Vital Signs Temp Pulse Pulse Resp BP Pulse Ox 12/16/20 08:21 99.0 F 75 18 115/84 93 12/16/20 04:41 98.8 F 73 20 115/86 99 12/16/20 00:08 100 12/16/20 00:00 98 12/15/20 23:35 98.5 F 68 22 122/86 97 12/15/20 22:00 76 12/15/20 21:27 72 124/89 12/15/20 19:57 98.5 F 72 20 124/89 100 12/15/20 15:55 98.0 F 50 L 18 124/87 89 12/15/20 12:00 89 89 96 12/15/20 11:35 98.4 F 81 18 115/82 98 - Physical Examination General: No Apparent Distress HEENT: Positive: EOMI, Normocephaly, Mucus Membranes Moist Neck: Positive: neck supple, trachea midline, JVD/HJR Neuro: Positive: Grossly Intact Abdomen: Positive: Active Bowel Sounds, Distended. Negative: Tender Skin: Positive: Clear Musculoskeletal: Normal Range of Motion Extremities: Present: upper extr. pulses, +3 Edema (Bilateral lower extremities) - Labs and Meds Cardiac Enzymes 12/16/20 Range/Units 05:05 AST 54 H (5-40) units/L CBC 12/16/20 Range/Units 05:05 WBC 9.3 (4.5-11.0) K/mm3 RBC 2.94 L (3.65-5.03) M/mm3 Hgb 9.3 L (11.8-15.2) gm/dl Hct 29.3 L (35.5-45.6) % Plt Count 75 L (140-440) K/mm3 Comprehensive Metabolic Panel 12/16/20 Range/Units 05:05 Sodium 137 (137-145) mmol/L Potassium 3.2 L (3.6-5.0) mmol/L Chloride 98.0 (98-107) mmol/L Carbon Dioxide 33 H (22-30) mmol/L BUN 27 H (9-20) mg/dL Creatinine < 0.2 L (0.8-1.3) mg/dL Glucose 138 H (75-100) mg/dL Calcium 8.3 L (8.4-10.2) mg/dL AST 54 H (5-40) units/L ALT 53 (7-56) units/L Alkaline Phosphatase 165 H (35-129) units/L Total Protein 5.4 L (6.3-8.2) g/dL Albumin 3.6 L (3.9-5) g/dL - Imaging and Cardiology EKG: report reviewed, image reviewed Echo: report reviewed - EKG Sinus rhythms and dysrhythmias: sinus rhythm
[2020-12-16] MEDS: cefTRIAXone/NS 1 GM/50 ML 1 GM/50 ML BAG IV SCH (10:15)
[2020-12-16] MEDS: LACTULOSE 20 GM/30 ML ORAL LIQD PO SCH ×2 (10:16→22:55)
[2020-12-16] MEDS: DIGOXIN 0.125 MG TAB PO SCH (10:16)
[2020-12-16] MEDS: METOPROLOL TARTRATE 25 MG TAB PO SCH ×2 (10:16→22:56)
[2020-12-16] MEDS: MULTIVITAMINS ,THERAPEUTIC TAB PO SCH (10:17)
[2020-12-16] MEDS: LISINOPRIL 5 MG TAB PO SCH (10:17)
[2020-12-16] MEDS: PANTOPRAZOLE 40 MG TAB PO SCH (10:17)
[2020-12-16] MEDS: RIFAXIMIN 550 MG TAB PO SCH ×2 (10:20→22:59)
[2020-12-16] MEDS: prednisoLONE SOD PHOSPHATE 15 MG/5 ML ORAL LIQD PO SCH (10:21)
[2020-12-16] MEDS: APIXABAN 5 MG TAB PO SCH ×2 (13:15→22:55)
[2020-12-16] MEDS: FUROSEMIDE 20 MG/2 ML INJ IV SCH (13:56)
[2020-12-16] MEDS: ALBUMIN HUMAN 25% (25 GM/100 ML) INJ IV SCH (13:57)
[2020-12-16 14:10] LABS: Band Neutrophils # (Manual) 1.6 K/mm3; Myelocytes # (Manual) 1.1 K/mm3; Total Cells Counted 100
[2020-12-16 14:11] LABS: Anisocytosis 2+; Hypochromasia 2+; Platelet Estimate Consistent w Auto; Poikilocytosis 2+; Spherocytes 1+; Target Cells 2+
--- NOTE | 2020-12-16 14:24 | Progress Note ---
Subjective Date of service: 12/16/20 Principal diagnosis: Alcoholic Liver Disease Interval history: Assessment and Plan Assessment and plan: 50 YO Male with ETOH Dependence presents to ED for evaluation. Patient reports "I feel short of breath". Patient states that he has experienced shortness of breath, intermittent chest palpitations, as well as chest discomfort over the past 2 days with increased duration and frequency of the aforementioned symptoms over the same timeframe. EMS was notified and upon arrival the patient was found to be in distress and subsequently transported to [facility] for further care and evaluation of the aforementioned symptoms. The patient family reports that patient has been "feeling sick" and has been drinking a lot of alcohol over the past 1 week. Patient seen and evaluated in the emergency department. All lab a nd imaging studies reviewed. 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 Patient treated with medical cardioversion 12/06/20 Patient with atrial fibrillation with RVR, severe hyponatremia, alcoholic liver disease. Consulted Cardiology, GI and Nephrology. Started on Amiodarone, iv fluids, Thiamine Sodium 114 12/07/20 Patient with atrial fibrillation with RVR, severe hyponatremia, alcoholic liver disease. Cardiology, GI and Nephrology following. Started on Amiodarone, iv fluids, Thiamine Sodium 117 today, slight increased 12/08/20 Patient with atrial fibrillation with RVR, severe hyponatremia, alcoholic liver disease. Cardiology, GI and Nephrology following. On Amiodarone, iv fluids, Thiamine Sodium 112 today, worsening I discussed case with GI. She is contemplating poss starting steroids. Will order Coronavirus PCR as suggested by GI. Repeat CXR today. 12/09/20 Patient with atrial fibrillation with RVR, severe hyponatremia, alcoholic liver disease. Cardiology, GI and Nephrology following. On Amiodarone, iv fluids, Thiamine Sodium 114 today, Hyperkalemia with Potassium 5.4. Give kayexalate I discussed case with GI. She has started him on Prednisone. Ordered Coronavirus PCR as suggested by GI. Sanjay manjarrez as Nurse had difficulty obtaining urine because of edema of penis, scrotum. 12/10/20 Patient with atrial fibrillation with RVR, severe hyponatremia, alcoholic liver disease. Cardiology, GI and Nephrology following. iv fluids, Thiamine Sodium improving, 122 today, Hyperkalemia now resolved after kayexalate I discussed case with GI. She has started him on Prednisone for alcoholic hepatitis Ordered Coronavirus PCR as suggested by GI, negative Covid. Placed manjarrez as Nurse had difficulty obtaining urine because of edema of penis, scrotum. 12/11/2020. Patient rate well controlled at this particular time. Patient in bed somewhat agitated in restraints. Initial exam consistent with delirium tremors alcohol withdrawal 12/12/2020. Patient remains restrained. Signs and symptoms as well as presentation consistent with alcohol withdrawal. No new events overnight. No rhythm changes over p.m. 12/13/2020. Patient continues to require restraints. Continue CIWA protocol. INR remains elevated at 1.81. Sodium improved to 138. Replete potassium which is at 3.3 today. Diagnostic paracentesis per GI. Continue lactulose via rectal route. We will attempt to avoid benzodiazepines as they may be worsening the altered mentation. Follow-up hepatic function and coags. 12/14/2020. Patient remains confused with DTs and requires restraints. Check ammonia level. Continue CIWA protocol. INR elevated. Diagnostic paracentesis per GI. Continue lactulose. GI following. Continue digoxin and metoprolol for rate control. Cardiology recommends starting Eliquis once liver status stable. I will discuss with cardiology given the elevated INR. 12/15/2020 Patient in DTs Severe ascites Needs paracentesis Objective - Constitutional Vitals: Vital Signs - 12hr 12/16/20 12/16/20 12/16/20 04:41 08:21 10:00 Temperature 98.8 F 99.0 F Pulse Rate 73 75 Respiratory 20 18 20 Rate Blood Pressure 115/86 115/84 O2 Sat by Pulse 99 93 97 Oximetry 12/16/20 12/16/20 12/16/20 10:16 10:17 11:48 Temperature 98.4 F Pulse Rate 75 89 Respiratory 18 Rate Blood Pressure 115/84 115/84 120/83 O2 Sat by Pulse 95 Oximetry - Labs CBC & Chem 7: 12/16/20 05:05 12/16/20 05:05 Labs: Abnormal lab results 12/15/20 12/16/20 12/16/20 Range/Units 23:07 05:05 05:05 RBC 2.94 L (3.65-5.03) M/mm3 Hgb 9.3 L (11.8-15.2) gm/dl Hct 29.3 L (35.5-45.6) % MCV 100 H (84-94) fl RDW 23.8 H (13.2-15.2) % Plt Count 75 L (140-440) K/mm3 Lymphocytes % (Manual) 7.0 L (13.4-35.0) % Nucleated RBC % 1.0 H (0.0-0.9) % Lymphocytes # (Manual) 0.7 L (1.2-5.4) K/mm3 Potassium 3.2 L (3.6-5.0) mmol/L Carbon Dioxide 33 H (22-30) mmol/L BUN 27 H (9-20) mg/dL Creatinine < 0.2 L (0.8-1.3) mg/dL Glucose 138 H (75-100) mg/dL POC Glucose 114 H (70-105) mg/dL Calcium 8.3 L (8.4-10.2) mg/dL Total Bilirubin 11.10 H (0.1-1.2) mg/dL AST 54 H (5-40) units/L Alkaline Phosphatase 165 H (35-129) units/L Total Protein 5.4 L (6.3-8.2) g/dL Albumin 3.6 L (3.9-5) g/dL 12/16/20 Range/Units 05:43 RBC (3.65-5.03) M/mm3 Hgb (11.8-15.2) gm/dl Hct (35.5-45.6) % MCV (84-94) fl RDW (13.2-15.2) % Plt Count (140-440) K/mm3 Lymphocytes % (Manual) (13.4-35.0) % Nucleated RBC % (0.0-0.9) % Lymphocytes # (Manual) (1.2-5.4) K/mm3 Potassium (3.6-5.0) mmol/L Carbon Dioxide (22-30) mmol/L BUN (9-20) mg/dL Creatinine (0.8-1.3) mg/dL Glucose (75-100) mg/dL POC Glucose 133 H (70-105) mg/dL Calcium (8.4-10.2) mg/dL Total Bilirubin (0.1-1.2) mg/dL AST (5-40) units/L Alkaline Phosphatase (35-129) units/L Total Protein (6.3-8.2) g/dL Albumin (3.9-5) g/dL HEART Score - HEART Score Troponin: Troponin T < 0.010 ng/mL (0.00-0.029) 12/07/20 04:51
--- NOTE | 2020-12-16 14:40 | Gastroenterology Progress Note ---
Assessment and Plan - Patient Problems (1) Alcoholic cirrhosis of liver with ascites Current Visit: Yes Status: Acute Plan to address problem: - Patient stable, and will continue transition to PO meds in transition to outpatient management - Continue low-salt diet, protonix, MVI therapy - Patient is hospital day 9, and EtOH W/D should be completed by now; will stop CIWA (as benzos will make eval of encephalopathy more confusing) - Diuretics per Renal; remains in overload but kidney function stable (2) Encephalopathy acute Current Visit: Yes Status: Acute Plan to address problem: - Likely combination of EtOH w/d, PSE, malnutrition, acute illness - Appears to be improving - Will stop all benzos and narcotics for now - Continue xifaxan; multiple BM/day, and will continue wean off of lactulose (3) Atrial fibrillation with RVR Current Visit: Yes Status: Acute Plan to address problem: - Patient on amiodarone per Cardiology; will need daily LFT monitoring. - Would transition to PO Amiodarone, but he will need close outpatient monitoring. - Avoid Eliquis or other anticoagulation until Bili < 10. (4) Dilated cardiomyopathy Current Visit: Yes Status: Acute Subjective Date of service: 12/16/20 Principal diagnosis: Alcoholic Liver Disease Interval history: The patient is stable without abdominal pain or fevers. He continues to diurese well with lasix. No melena or hematemesis reported. Objective - Constitutional Vitals: Temp Pulse Resp BP Pulse Ox 98.4 F 89 18 120/83 95 12/16/20 11:48 12/16/20 11:48 12/16/20 11:48 12/16/20 11:48 12/16/20 11:48 General appearance: no acute distress - EENT Eyes: PERRL, EOM intact, scleral icterus - Respiratory Respiratory effort: normal Respiratory: bilateral: CTA - Cardiovascular Rhythm: irregularly irregular Heart Sounds: Present: S1 & S2 - Gastrointestinal General gastrointestinal: Present: soft, non-tender, distended (Moderate ascites) - Labs CBC & Chem 7: 12/16/20 05:05 12/16/20 05:05 Labs: Laboratory Results - last 24 hr 12/15/20 12/15/20 12/16/20 16:41 23:07 05:05 WBC RBC Hgb Hct MCV MCH MCHC RDW Plt Count Add Manual Diff Total Counted Seg Neutrophils % Seg Neuts % (Manual) Band Neutrophils % Lymphocytes % (Manual) Monocytes % (Manual) Myelocytes % Nucleated RBC % Seg Neutrophils # Man Band Neutrophils # Lymphocytes # (Manual) Abs React Lymphs (Man) Monocytes # (Manual) Eosinophils # (Manual) Basophils # (Manual) Metamyelocytes # Myelocytes # Promyelocytes # Blast Cells # WBC Morphology Hypersegmented Neuts Hyposegmented Neuts Hypogranular Neuts Smudge Cells Toxic Granulation Toxic Vacuolation Dohle Bodies Pelger-Huet Anomaly Tamiko Rods Platelet Estimate Clumped Platelets Plt Clumps, EDTA Large Platelets Giant Platelets Platelet Satelliting Plt Morphology Comment RBC Morphology Dimorphic RBCs Polychromasia Hypochromasia Poikilocytosis Anisocytosis Microcytosis Macrocytosis Spherocytes Pappenheimer Bodies Sickle Cells Target Cells Tear Drop Cells Ovalocytes Helmet Cells Guillen-Sunfield Bodies Bison Rings Bernardo Cells Bite Cells Crenated Cell Elliptocytes Acanthocytes (Spur) Rouleaux Hemoglobin C Crystals Schistocytes Malaria parasites Parrish Bodies Hem Pathologist Commnt Sodium 137 Potassium 3.2 L Chloride 98.0 Carbon Dioxide 33 H Anion Gap 9 BUN 27 H Creatinine < 0.2 L Estimated GFR > 60 BUN/Creatinine Ratio 135 Glucose 138 H POC Glucose 103 114 H Calcium 8.3 L Total Bilirubin 11.10 H AST 54 H ALT 53 Alkaline Phosphatase 165 H Total Protein 5.4 L Albumin 3.6 L Albumin/Globulin Ratio 2.0 12/16/20 12/16/20 05:05 05:43 WBC 9.3 RBC 2.94 L Hgb 9.3 L Hct 29.3 L MCV 100 H MCH 32 MCHC 32 RDW 23.8 H Plt Count 75 L Add Manual Diff Complete Total Counted 100 Seg Neutrophils % Grid Operator Seg Neuts % (Manual) 61.0 Band Neutrophils % 17.0 Lymphocytes % (Manual) 7.0 L Monocytes % (Manual) 3.0 Myelocytes % 12.0 Nucleated RBC % 1.0 H Seg Neutrophils # Man 5.7 Band Neutrophils # 1.6 Lymphocytes # (Manual) 0.7 L Abs React Lymphs (Man) 0.0 Monocytes # (Manual) 0.3 Eosinophils # (Manual) 0.0 Basophils # (Manual) 0.0 Metamyelocytes # 0.0 Myelocytes # 1.1 Promyelocytes # 0.0 Blast Cells # 0.0 WBC Morphology Not Reportable Hypersegmented Neuts Not Reportable Hyposegmented Neuts Not Reportable Hypogranular Neuts Not Reportable Smudge Cells Not Reportable Toxic Granulation Not Reportable Toxic Vacuolation Not Reportable Dohle Bodies Not Reportable Pelger-Huet Anomaly Not Reportable Tamiko Rods Not Reportable Platelet Estimate Consistent w auto Clumped Platelets Not Reportable Plt Clumps, EDTA Not Reportable Large Platelets Not Reportable Giant Platelets Not Reportable Platelet Satelliting Not Reportable Plt Morphology Comment Not Reportable RBC Morphology Not Reportable Dimorphic RBCs Not Reportable Polychromasia Not Reportable Hypochromasia 2+ Poikilocytosis 2+ Anisocytosis 2+ Microcytosis Not Reportable Macrocytosis Not Reportable Spherocytes 1+ Pappenheimer Bodies Not Reportable Sickle Cells Not Reportable Target Cells 2+ Tear Drop Cells Not Reportable Ovalocytes Not Reportable Helmet Cells Not Reportable Guillen-Sunfield Bodies Not Reportable Bison Rings Not Reportable [place] Cells Not Reportable Bite Cells Not Reportable Crenated Cell Not Reportable Elliptocytes Not Reportable Acanthocytes (Spur) Not Reportable Rouleaux Not Reportable Hemoglobin C Crystals Not Reportable Schistocytes Not Reportable Malaria parasites Not Reportable Parrish Bodies Not Reportable Hem Pathologist Commnt No Sodium Potassium Chloride Carbon Dioxide Anion Gap BUN Creatinine Estimated GFR BUN/Creatinine Ratio Glucose POC Glucose 133 H Calcium Total Bilirubin AST ALT Alkaline Phosphatase Total Protein Albumin Albumin/Globulin Ratio
[2020-12-16 14:44] LABS: Hemoglobin 9.3 gm/dl (11.8-15.2); Mean Corpuscular HGB Conc 31 % (32-34); Mean Corpuscular Volume 99 fl (84-94); Red Blood Count 3.03 M/mm3 (3.65-5.03)
[2020-12-16 14:57] LABS: INR 1.93 (0.87-1.13)
[2020-12-16 14:58] LABS: Partial Thromboplastin Time 44.7 Sec. (24.2-36.6)
[2020-12-16 15:30] LABS: Platelet Count 94 K/mm3 (140-440); Red Cell Distribution Width 24.5 % (13.2-15.2)
--- NOTE | 2020-12-16 17:06 | Progress Note ---
Assessment and Plan Impression * Hyponatremia, hypervolemic * Alcoholic hepatitis * Cardiomyopathy - EF 10-15% * Transamintis * Hyperbilirubinemia * Anasarca * Alcohol abuse * Atrial fibrillation Plan: * Continue IV diruesis Lasix/Albumin daily - UOP not accurately documented despite manjarrez catheter - per PCT, patient with 1000ml UOP today * Strict I/O * Replete K prn * GI following - patient is s/p diagnostic paracentesis * Rate control per cardiology * CIWA protocol per primary team * Replete lytes prn Subjective Date of service: 12/16/20 Principal diagnosis: Alcoholic Liver Disease Interval history: No acute events overnight Objective - Vital Signs Vital signs: Vital Signs - 12hr 12/16/20 12/16/20 12/16/20 08:21 10:00 10:16 Temperature 99.0 F Pulse Rate 75 75 Respiratory 18 20 Rate Blood Pressure 115/84 115/84 O2 Sat by Pulse 93 97 Oximetry 12/16/20 12/16/20 12/16/20 10:17 11:48 15:33 Temperature 98.4 F Pulse Rate 89 81 Respiratory 18 18 Rate Blood Pressure 115/84 120/83 126/87 O2 Sat by Pulse 95 99 Oximetry - General Appearance General appearance: well-developed, well-nourished EENT: ATNC Respiratory: Present: Clear to Ascultation Cardiology: irregular, S1S2 Gastrointestinal: hypoactive bowel sounds, no tenderness, distended Integumentary: no rash Neurologic: no focal deficit Psychiatric: cooperative - Lab 12/16/20 14:22 12/16/20 14:22 Most recent lab results Calcium 8.3 mg/dL (8.4-10.2) L 12/16/20 05:05 Phosphorus 2.50 mg/dL (2.5-4.5) 12/06/20 10:01 Magnesium 1.70 mg/dL (1.7-2.3) 12/14/20 05:00 Urine Sodium 10 mmol/L 12/06/20 Unknown Medications & Allergies - Medications Allergies/Adverse Reactions: Allergies No Known Allergies Allergy (Unverified 12/05/20 15:43) Home Medications: Home Medications Medication Instructions Recorded Confirmed Last Taken Type No Known Home Medications [No 12/08/20 12/08/20 Unknown History Reported Home Medications] Active Medications: Generic Name Dose Route Start Last Admin Trade Name Freq PRN Reason Stop Dose Admin Albumin Human 25 gm 12/15/20 13:00 12/16/20 13:57 Albumin Human 25% (25 Gm/100 Ml) Inj IV 25 gm QDAY WESLEY Administration Albuterol 2.5 mg 12/05/20 17:11 12/09/20 20:33 Albuterol 2.5 Mg/3 Ml Nebu IH 2.5 mg Q4HRT PRN Administration Shortness Of Breath Apixaban 5 mg 12/16/20 11:00 12/16/20 13:15 Apixaban 5 Mg Tab PO 5 mg Q12HR WESLEY Administration Protocol Digoxin 0.125 mg 12/08/20 12:00 12/16/20 10:16 Digoxin 0.125 Mg Tab PO 0.125 mg DAILY WESLEY Administration Furosemide 20 mg 12/15/20 13:00 12/16/20 13:56 Furosemide 20 Mg/2 Ml Inj IV 20 mg QDAY WESLEY Administration Amiodarone HCl 900 mg/ 500 mls @ 16.667 mls/hr 12/14/20 11:30 12/15/20 12:32 Dextrose IV 0.5 mg/min DIRECT WESLEY 16.667 mls/hr Administration Protocol 0.5 MG/MIN Lactulose 20 gm 12/15/20 10:00 12/16/20 10:16 Lactulose 20 Gm/30 Ml Oral Liqd PO 20 gm BID WESLEY Administration Lisinopril 2.5 mg 12/13/20 11:00 12/16/20 10:17 Lisinopril 5 Mg Tab PO 2.5 mg QDAY WESLEY Administration Metoprolol Tartrate 50 mg 12/14/20 11:30 12/16/20 10:16 Metoprolol Tartrate 25 Mg Tab PO 50 mg BID WESLEY Administration Multivitamins 1 each 12/06/20 10:00 12/16/20 10:17 Multivitamins ,Therapeutic Tab PO 1 each QDAY WESLEY Administration Ondansetron HCl 4 mg 12/05/20 17:11 Ondansetron 4 Mg/2 Ml Inj IV Q8H PRN Nausea And Vomiting Pantoprazole Sodium 40 mg 12/15/20 12:00 12/16/20 10:17 Pantoprazole 40 Mg Tab PO 40 mg QDAC WESLEY Administration Prednisolone Sodium Phosphate 20 mg 12/15/20 11:00 12/16/20 10:21 Prednisolone Sod Phosphate 15 Mg/5 Ml Oral Liqd PO 12/19/20 10:01 20 mg QDAY WESLEY Administration Rifaximin 550 mg 12/13/20 22:00 12/16/20 10:20 Rifaximin 550 Mg Tab PO 550 mg BID WESLEY Administration Sodium Chloride 10 ml 12/05/20 22:00 12/16/20 10:17 Sodium Chloride 0.9% 10 Ml Flush Syringe IV 10 ml BID WESLEY Administration Sodium Chloride 10 ml 12/05/20 17:11 12/12/20 03:25 Sodium Chloride 0.9% 10 Ml Flush Syringe IV 10 ml PRN PRN Administration LINE FLUSH
[2020-12-16] MEDS: AMIODARONE 900 MG in DEXTROSE 5% IN WATER 482 ML IV SCH (22:59)
[2020-12-17 05:36] LABS: Alanine Aminotransferase 44 units/L (7-56); Blood Urea Nitrogen 20 mg/dL (9-20); Calcium 7.9 mg/dL (8.4-10.2); Hemolysis Index 43
[2020-12-17 05:45] LABS: BUN/Creatinine Ratio 100
[2020-12-17 10:02] LABS: INR 1.91 (0.87-1.13); Partial Thromboplastin Time 41.2 Sec. (24.2-36.6)
--- NOTE | 2020-12-17 10:28 | Progress Note ---
Assessment and Plan Patient is a 50 y/o male HFrEF Dilated cardiomyopathy Chest pain, intermittent- (resolved) * Twelve-lead reviewed shows atrial fibrillation with no acute ischemic changes. Troponin is negative x3. AMI ruled out * Echo 12/06/2020-EF 10 to 15% left ventricular diastolic function is indeterminate, right ventricle is mild to moderately dilated, right ventricle is severely hypokinetic, left atrium is severely dilated, mild pulmonary hypertension, mild tricuspid regurgitation, IVC is dilated IVC collapses with >50% inspiration. * Currently on Lisinopril 2.5mg PO QD A. fib * Telemetry Reviewed: patient currently afib 70s on monitor * Currently on digoxin 0.125mg PO QD and Metoprolol 50 mg PO BID * Currently anticoagulated on Eliquis. Hypokalemia Hyponatremia Volume Overload * Potassium being repleted. * 2+ bilateral lower extremity edema noted. On Lasix 20mg IV QD * Management per nephrology Alcoholic Liver Disease [facility] protocol for alcohol dependence * GI following Plan: Stop amio gtt. Started Aldactone 25mg PO QD. Converted to Lasix 40mg PO BID. Lexiscan MPI Stress in the AM. NPO after midnight. Will continue to follow. This patient was seen in conjunction with Dr Ramsay who agrees with this assessment plan of care - Patient Problems (1) HFrEF (heart failure with reduced ejection fraction) Current Visit: Yes Status: Acute (2) Dilated cardiomyopathy Current Visit: Yes Status: Acute (3) Atrial fibrillation with RVR Current Visit: Yes Status: Acute (4) Chest pain Current Visit: Yes Status: Resolved (5) Hypomagnesemia Current Visit: Yes Status: Acute (6) Hyponatremia Current Visit: Yes Status: Acute (7) Jaundice Current Visit: Yes Status: Acute (8) Alcohol dependence Current Visit: Yes Status: Chronic (9) Alcoholic liver disease Current Visit: Yes Status: Chronic Subjective Date of service: 12/17/20 Principal diagnosis: Alcoholic Liver Disease Interval history: Patient is sitting in bed Patient currently afib 70s. Objective Vital Signs Temp Pulse Resp BP Pulse Ox 12/17/20 08:23 98.6 F 66 20 121/72 100 12/17/20 04:42 68 20 112/85 100 12/16/20 23:20 98.7 F 83 18 117/82 94 12/16/20 22:56 71 126/99 12/16/20 22:00 68 20 97 12/16/20 20:32 98.9 F 71 19 126/99 100 12/16/20 15:33 81 18 126/87 99 12/16/20 11:48 98.4 F 89 18 120/83 95 - Physical Examination General: No Apparent Distress HEENT: Positive: EOMI, Normocephaly, Mucus Membranes Moist Neck: Positive: neck supple, trachea midline, JVD/HJR Cardiac: Positive: irregularly irregular Neuro: Positive: Grossly Intact Abdomen: Positive: Active Bowel Sounds, Distended. Negative: Tender Skin: Positive: Clear Musculoskeletal: Normal Range of Motion Extremities: Present: upper extr. pulses, +2 Edema - Labs and Meds Cardiac Enzymes 12/17/20 Range/Units 04:28 AST 47 H (5-40) units/L Coagulation 12/16/20 12/17/20 Range/Units 14:22 09:01 PT 22.5 H 22.3 H (12.2-14.9) Sec. INR 1.93 H 1.91 H (0.87-1.13) APTT 44.7 H 41.2 H (24.2-36.6) Sec. CBC 12/16/20 Range/Units 14:22 WBC 10.4 (4.5-11.0) K/mm3 RBC 3.03 L (3.65-5.03) M/mm3 Hgb 9.3 L (11.8-15.2) gm/dl Hct 30.0 L (35.5-45.6) % Plt Count 94 L (140-440) K/mm3 Comprehensive Metabolic Panel 12/16/20 12/17/20 Range/Units 14:22 04:28 Sodium 133 L (137-145) mmol/L Potassium 3.3 L (3.6-5.0) mmol/L Chloride 96.8 L (98-107) mmol/L Carbon Dioxide 31 H (22-30) mmol/L BUN 20 (9-20) mg/dL Creatinine < 0.2 L < 0.2 L (0.8-1.3) mg/dL Glucose 87 (75-100) mg/dL Calcium 7.9 L (8.4-10.2) mg/dL AST 47 H (5-40) units/L ALT 44 (7-56) units/L Alkaline Phosphatase 145 H (35-129) units/L Total Protein 4.9 L (6.3-8.2) g/dL Albumin 3.0 L (3.9-5) g/dL - Imaging and Cardiology EKG: report reviewed, image reviewed Echo: report reviewed - Telemetry EKG Rhythm: Atrial Fibrillation - EKG Supraventricular dysrhythmia: atrial fibrillation
[2020-12-17] MEDS ORDERED: SPIRONOLACTONE 25 MG TAB PO SCH (10:30)
--- NOTE | 2020-12-17 10:36 | Gastroenterology Progress Note ---
Assessment and Plan - Patient Problems (1) Alcoholic cirrhosis of liver with ascites Current Visit: Yes Status: Acute Plan to address problem: - Patient stable, and will continue transition to PO meds in transition to outpatient management - Continue low-salt diet, protonix, MVI therapy - Patient is hospital day 11, and EtOH W/D should be completed by now; will keep off CIWA (as benzos will make eval of encephalopathy more confusing) - Diuretics per Renal; remains in overload but kidney function stable (2) Encephalopathy acute Current Visit: Yes Status: Acute Plan to address problem: - Likely combination of EtOH w/d, PSE, malnutrition, acute illness - Appears to be improving - Will stop all benzos and narcotics for now - Continue xifaxan; multiple BM/day, and will continue wean off of lactulose (down to 10mg BID) since this is also distending stomach. (3) Atrial fibrillation with RVR Current Visit: Yes Status: Acute Plan to address problem: - Patient on amiodarone per Cardiology; will need daily LFT monitoring. - Would transition to PO Amiodarone, but he will need close outpatient monitoring. (4) Dilated cardiomyopathy Current Visit: Yes Status: Acute Subjective Date of service: 12/17/20 Principal diagnosis: Alcoholic Liver Disease Interval history: The patient is stable and cooperative without N/V/abdominal pain. He is tolerating a regular diet and all PO meds. No blood in stool despite use of Eliquis. Objective - Constitutional Vitals: Temp Pulse Resp BP Pulse Ox 98.6 F 66 20 121/72 100 12/17/20 08:23 12/17/20 08:23 12/17/20 08:23 12/17/20 08:23 12/17/20 08:23 General appearance: no acute distress - EENT Eyes: PERRL, scleral icterus ENT: hearing intact, no thrush - Respiratory Respiratory effort: normal Respiratory: bilateral: CTA - Cardiovascular Rhythm: regular Heart Sounds: Present: S1 & S2 - Gastrointestinal General gastrointestinal: Present: soft, non-tender, distended (Moderate ascites but also (+) air distention) - Labs CBC & Chem 7: 12/16/20 14:22 12/17/20 04:28 Labs: Laboratory Results - last 24 hr 12/16/20 12/16/20 12/16/20 05:05 14:22 14:22 WBC 10.4 RBC 3.03 L Hgb 9.3 L Hct 30.0 L MCV 99 H MCH 31 MCHC 31 L RDW 24.5 H Plt Count 94 L Add Manual Diff Complete Total Counted 100 Seg Neuts % (Manual) 61.0 Band Neutrophils % 17.0 Lymphocytes % (Manual) 7.0 L Monocytes % (Manual) 3.0 Myelocytes % 12.0 Nucleated RBC % 1.0 H Seg Neutrophils # Man 5.7 Band Neutrophils # 1.6 Lymphocytes # (Manual) 0.7 L Abs React Lymphs (Man) 0.0 Monocytes # (Manual) 0.3 Eosinophils # (Manual) 0.0 Basophils # (Manual) 0.0 Metamyelocytes # 0.0 Myelocytes # 1.1 Promyelocytes # 0.0 Blast Cells # 0.0 WBC Morphology Not Reportable Hypersegmented Neuts Not Reportable Hyposegmented Neuts Not Reportable Hypogranular Neuts Not Reportable Smudge Cells Not Reportable Toxic Granulation Not Reportable Toxic Vacuolation Not Reportable Dohle Bodies Not Reportable Pelger-Huet Anomaly Not Reportable Tamiko Rods Not Reportable Platelet Estimate Consistent w auto Clumped Platelets Not Reportable Plt Clumps, EDTA Not Reportable Large Platelets Not Reportable Giant Platelets Not Reportable Platelet Satelliting Not Reportable Plt Morphology Comment Not Reportable RBC Morphology Not Reportable Dimorphic RBCs Not Reportable Polychromasia Not Reportable Hypochromasia 2+ Poikilocytosis 2+ Anisocytosis 2+ Microcytosis Not Reportable Macrocytosis Not Reportable Spherocytes 1+ Pappenheimer Bodies Not Reportable Sickle Cells Not Reportable Target Cells 2+ Tear Drop Cells Not Reportable Ovalocytes Not Reportable Helmet Cells Not Reportable [place] Bodies Not Reportable [place] Rings Not Reportable Bernardo Cells Not Reportable Bite Cells Not Reportable Crenated Cell Not Reportable Elliptocytes Not Reportable Acanthocytes (Spur) Not Reportable Rouleaux Not Reportable Hemoglobin C Crystals Not Reportable Schistocytes Not Reportable Malaria parasites Not Reportable Parrish Bodies Not Reportable Hem Pathologist Commnt No PT 22.5 H INR 1.93 H APTT 44.7 H Sodium Potassium Chloride Carbon Dioxide Anion Gap BUN Creatinine Estimated GFR BUN/Creatinine Ratio Glucose Calcium Total Bilirubin AST ALT Alkaline Phosphatase Total Protein Albumin Albumin/Globulin Ratio 12/16/20 12/17/20 12/17/20 14:22 04:28 09:01 WBC RBC Hgb Hct MCV MCH MCHC RDW Plt Count Add Manual Diff Total Counted Seg Neuts % (Manual) Band Neutrophils % Lymphocytes % (Manual) Monocytes % (Manual) Myelocytes % Nucleated RBC % Seg Neutrophils # Man Band Neutrophils # Lymphocytes # (Manual) Abs React Lymphs (Man) Monocytes # (Manual) Eosinophils # (Manual) Basophils # (Manual) Metamyelocytes # Myelocytes # Promyelocytes # Blast Cells # WBC Morphology Hypersegmented Neuts Hyposegmented Neuts Hypogranular Neuts Smudge Cells Toxic Granulation Toxic Vacuolation Dohle Bodies Pelger-Huet Anomaly Tamiko Rods Platelet Estimate Clumped Platelets Plt Clumps, EDTA Large Platelets Giant Platelets Platelet Satelliting Plt Morphology Comment RBC Morphology Dimorphic RBCs Polychromasia Hypochromasia Poikilocytosis Anisocytosis Microcytosis Macrocytosis Spherocytes Pappenheimer Bodies Sickle Cells Target Cells Tear Drop Cells Ovalocytes Helmet Cells [place] Bodies [place] Cells Bite Cells Crenated Cell Elliptocytes Acanthocytes (Spur) Rouleaux Hemoglobin C Crystals Schistocytes Malaria parasites Parrish Bodies Hem Pathologist Commnt PT 22.3 H INR 1.91 H APTT 41.2 H Sodium 133 L Potassium 3.3 L Chloride 96.8 L Carbon Dioxide 31 H Anion Gap 9 BUN 20 Creatinine < 0.2 L < 0.2 L Estimated GFR > 60 > 60 BUN/Creatinine Ratio 100 Glucose 87 Calcium 7.9 L Total Bilirubin 10.10 H AST 47 H ALT 44 Alkaline Phosphatase 145 H Total Protein 4.9 L Albumin 3.0 L Albumin/Globulin Ratio 1.6
[2020-12-17] MEDS: PANTOPRAZOLE 40 MG TAB PO SCH (15:49)
[2020-12-17] MEDS: LISINOPRIL 5 MG TAB PO SCH (15:49)
[2020-12-17] MEDS: LACTULOSE 20 GM/30 ML ORAL LIQD PO SCH ×2 (15:49→22:59)
[2020-12-17] MEDS: MULTIVITAMINS ,THERAPEUTIC TAB PO SCH (15:50)
[2020-12-17] MEDS: METOPROLOL TARTRATE 25 MG TAB PO SCH ×2 (15:50→22:04)
[2020-12-17] MEDS: DIGOXIN 0.125 MG TAB PO SCH (15:50)
[2020-12-17] MEDS: APIXABAN 5 MG TAB PO SCH ×2 (15:51→23:00)
[2020-12-17] MEDS: prednisoLONE SOD PHOSPHATE 15 MG/5 ML ORAL LIQD PO SCH (15:52)
[2020-12-17] MEDS: ALBUMIN HUMAN 25% (25 GM/100 ML) INJ IV SCH (16:06)
--- NOTE | 2020-12-17 17:44 | Progress Note ---
Assessment and Plan Impression * Hyponatremia, hypervolemic * Alcoholic hepatitis * Cardiomyopathy - EF 10-15% * Transamintis * Hyperbilirubinemia * Anasarca * Alcohol abuse * Atrial fibrillation Plan: * Hold diuresis for MAP < 65 * Replete K to goal * Strict I/O * GI following - patient is s/p diagnostic paracentesis * Rate control per cardiology * CIWA protocol per primary team * Replete lytes prn * Will sign off. Please call with questions. Subjective Date of service: 12/17/20 Principal diagnosis: Alcoholic Liver Disease Objective - Vital Signs Vital signs: Vital Signs - 12hr 12/17/20 12/17/20 12/17/20 08:23 10:00 11:46 Temperature 98.6 F 98.3 F Pulse Rate 66 66 67 Respiratory 20 20 20 Rate Blood Pressure 121/72 107/67 O2 Sat by Pulse 100 95 98 Oximetry 12/17/20 12/17/20 12/17/20 15:50 17:05 17:08 Temperature 98.3 F 98.3 F Pulse Rate 116 H 69 Respiratory 20 50 H Rate Blood Pressure 79/45 O2 Sat by Pulse 95 Oximetry - Lab 12/16/20 14:22 12/17/20 04:28 Most recent lab results Calcium 7.9 mg/dL (8.4-10.2) L 12/17/20 04:28 Phosphorus 2.50 mg/dL (2.5-4.5) 12/06/20 10:01 Magnesium 1.70 mg/dL (1.7-2.3) 12/14/20 05:00 Urine Sodium 10 mmol/L 12/06/20 Unknown Medications & Allergies - Medications Allergies/Adverse Reactions: Allergies No Known Allergies Allergy (Unverified 12/05/20 15:43) Home Medications: Home Medications Medication Instructions Recorded Confirmed Last Taken Type No Known Home Medications [No 12/08/20 12/08/20 Unknown History Reported Home Medications] Active Medications: Generic Name Dose Route Start Last Admin Trade Name Freq PRN Reason Stop Dose Admin Albumin Human 25 gm 12/15/20 13:00 12/17/20 16:06 Albumin Human 25% (25 Gm/100 Ml) Inj IV 25 gm QDAY WESLEY Administration Albuterol 2.5 mg 12/05/20 17:11 12/09/20 20:33 Albuterol 2.5 Mg/3 Ml Nebu IH 2.5 mg Q4HRT PRN Administration Shortness Of Breath Apixaban 5 mg 12/16/20 11:00 12/17/20 15:51 Apixaban 5 Mg Tab PO Not Given Q12HR [facility] Protocol Digoxin 0.125 mg 12/08/20 12:00 12/17/20 15:50 Digoxin 0.125 Mg Tab PO 0.125 mg DAILY WESLEY Administration Furosemide 40 mg 12/17/20 18:00 Furosemide 40 Mg Tab PO 0600,1800 WESLEY Lactulose 10 gm 12/17/20 11:00 12/17/20 15:49 Lactulose 20 Gm/30 Ml Oral Liqd PO 10 gm BID WESLEY Administration Lisinopril 2.5 mg 12/13/20 11:00 12/17/20 15:49 Lisinopril 5 Mg Tab PO 2.5 mg QDAY WESLEY Administration Metoprolol Tartrate 50 mg 12/14/20 11:30 12/17/20 15:50 Metoprolol Tartrate 25 Mg Tab PO 50 mg BID WESLEY Administration Multivitamins 1 each 12/06/20 10:00 12/17/20 15:50 Multivitamins ,Therapeutic Tab PO 1 each QDAY WESLEY Administration Ondansetron HCl 4 mg 12/05/20 17:11 12/17/20 10:18 Ondansetron 4 Mg/2 Ml Inj IV 4 mg Q8H PRN Administration Nausea And Vomiting Pantoprazole Sodium 40 mg 12/15/20 12:00 12/17/20 15:49 Pantoprazole 40 Mg Tab PO 40 mg QDAC WESLEY Administration Prednisolone Sodium Phosphate 20 mg 12/15/20 11:00 12/17/20 15:52 Prednisolone Sod Phosphate 15 Mg/5 Ml Oral Liqd PO 12/19/20 10:01 20 mg QDAY WESLEY Administration Rifaximin 550 mg 12/13/20 22:00 12/16/20 22:59 Rifaximin 550 Mg Tab PO 550 mg BID WESLEY Administration Sodium Chloride 10 ml 12/05/20 22:00 12/17/20 10:18 Sodium Chloride 0.9% 10 Ml Flush Syringe IV 10 ml BID WESLEY Administration Sodium Chloride 10 ml 12/05/20 17:11 12/12/20 03:25 Sodium Chloride 0.9% 10 Ml Flush Syringe IV 10 ml PRN PRN Administration LINE FLUSH Spironolactone 25 mg 12/17/20 10:30 12/17/20 15:52 Spironolactone 25 Mg Tab PO 25 mg QDAY WESLEY Administration
[2020-12-17] MEDS: RIFAXIMIN 550 MG TAB PO SCH ×2 (17:45→22:59)
[2020-12-17] MEDS ORDERED: POTASSIUM CHLORIDE ER 20 MEQ TAB PO ONE (17:46)
[2020-12-17] MEDS: FUROSEMIDE 40 MG TAB PO SCH (18:01)
--- NOTE | 2020-12-17 18:37 | Progress Note ---
Assessment and Plan Assessment and plan: -- Acute HFrEF (heart failure with reduced ejection fraction) Current Visit: Yes Status: Acute EF 10 to 15%[12/06/2020] Continue antifailure medications Input output monitoring Fluid restriction and low-salt diet Cardiology following Stress test scheduled for tomorrow --Dilated cardiomyopathy EF 10 to 15% Current Visit: Yes Status: Acute Continue antifailure medications -- Atrial fibrillation with RVR[rate controlled] Current Visit: Yes Status: Acute s/p amiodarone, Continue digoxin and metoprolol chronic anticoagulation with Eliquis Cardiology following --Hypokalemia; Current Visit: Yes Status: Acute Replenished with KCl, monitor electrolytes --Hyponatremia mild; Current Visit: Yes Status: Acute Due to fluid overload, continue Lasix, monitor electrolytes --Moderate malnutrition/hypoalbuminemia Current Visit: Yes Status: Acute Albumin 3.0, nutrition supplements and supportive care --Acute kidney injury (ASHLYN) with acute tubular necrosis (ATN) Current Visit: Yes Status: Acute Resolved --Alcoholic cirrhosis of liver with ascites Current Visit: Yes Status: Acute Continue current medications Input output monitoring, low-sodium diet s/p abdominal paracentesis Follow fluid analysis and supportive care Transaminases trending down ,GI following --alcohol withdrawal symptoms Current Visit: Yes Status: Acute On CIWA protocol, closely monitor Wean off the protocol, consider Ativan as needed for agitation --Chronic EtOH use Current Visit: Yes Status: Chronic Counseling , advised alcohol rehabilitation Strongly advised to quit alcohol intake , Advised to join alcohol Anonymous support group --Acute metabolic encephalopathy Current Visit: Yes Status: Acute Multifactorial, chronic EtOH , malnutrition Severe congestive heart failure, acute kidney injury Underlying disease process. Alcoholic liver disease Continue current management, GI following -- DVT prophylaxis Current Visit: Yes Status: Acute On Eliquis --full CODE STATUS; we will closely monitor the patient and adjust the management as needed Consults and recommendations noted and appreciated DC planning per case management Possible home health, home O2 evaluation prior to discharge Brief history and daily hospital course 50 YO Male with ETOH Dependence presents to ED for evaluation. Patient reports "I feel short of breath". Patient states that he has experienced shortness of breath, intermittent chest palpitations, as well as chest discomfort over the past 2 days with increased duration and frequency of the aforementioned symptoms over the same timeframe. EMS was notified and upon arrival the patient was found to be in distress and subsequently transported to [facility] for further care and evaluation of the aforementioned symptoms. The patient family reports that patient has been "feeling sick" and has been drinking a lot of alcohol over the past 1 week. Patient seen and evaluated in the emergency department. All lab and imaging studies reviewed. 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 Patient treated with medical cardioversion 12/06/20 Patient with atrial fibrillation with RVR, severe hyponatremia, alcoholic liver disease. Consulted Cardiology, GI and Nephrology. Started on Amiodarone, iv fluids, Thiamine Sodium 114 12/07/20 Patient with atrial fibrillation with RVR, severe hyponatremia, alcoholic liver disease. Cardiology, GI and Nephrology following. Started on Amiodarone, iv fluids, Thiamine Sodium 117 today, slight increased 12/08/20 Patient with atrial fibrillation with RVR, severe hyponatremia, alcoholic liver disease. Cardiology, GI and Nephrology following. On Amiodarone, iv fluids, Thiamine Sodium 112 today, worsening I discussed case with GI. She is contemplating poss starting steroids. Will order Coronavirus PCR as suggested by GI. Repeat CXR today. 12/09/20 Patient with atrial fibrillation with RVR, severe hyponatremia, alcoholic liver disease. Cardiology, GI and Nephrology following. On Amiodarone, iv fluids, Thiamine Sodium 114 today, Hyperkalemia with Potassium 5.4. Give kayexalate I discussed case with GI. She has started him on Prednisone. Ordered Coronavirus PCR as suggested by GI. Place manjarrez as Nurse had difficulty obtaining urine because of edema of penis, scrotum. 12/10/20 Patient with atrial fibrillation with RVR, severe hyponatremia, alcoholic liver disease. Cardiology, GI and Nephrology following. iv fluids, Thiamine Sodium improving, 122 today, Hyperkalemia now resolved after kayexalate I discussed case with GI. She has started him on Prednisone for alcoholic hepatitis Ordered Coronavirus PCR as suggested by GI, negative Covid. Placed manjarrez as Nurse had difficulty obtaining urine because of edema of penis, scrotum. 12/11/2020. Patient rate well controlled at this particular time. Patient in bed somewhat agitated in restraints. Initial exam consistent with delirium tremors alcohol withdrawal 12/12/2020. Patient remains restrained. Signs and symptoms as well as presentation consistent with alcohol withdrawal. No new events overnight. No rhythm changes over p.m. 12/13/2020. Patient continues to require restraints. Continue CIWA protocol. INR remains elevated at 1.81. Sodium improved to 138. Replete potassium which is at 3.3 today. Diagnostic paracentesis per GI. Continue lactulose via rectal route. We will attempt to avoid benzodiazepines as they may be worsening the altered mentation. Follow-up hepatic function and coags. 12/14/2020. Patient remains confused with DTs and requires restraints. Check ammonia level. Continue CIWA protocol. INR elevated. Diagnostic paracentesis per GI. Continue lactulose. GI following. Continue digoxin and metoprolol for rate control. Cardiology recommends starting Eliquis once liver status stable. I will discuss with cardiology given the elevated INR. 12/15/2020 Patient in DTs Severe ascites Needs paracentesis 12/17/2020; A. fib rate controlled, on metoprolol and digoxin Continue Eliquis, severe cardiomyopathy, continue antifailure medications Scheduled for stress test tomorrow History Interval history: I have seen and examined the patient at the bedside Patient's chart and medications reviewed Patient is edematous, short of breath in mild distress Complains of generalized weakness Hospitalist Physical - Constitutional Vitals: Temp Pulse Resp BP Pulse Ox 98.3 F 69 50 H 79/45 95 12/17/20 17:08 12/17/20 17:05 12/17/20 17:08 12/17/20 17:05 12/17/20 17:05 General appearance: Present: mild distress, well-nourished, obese, other (Generalized anasarca) - EENT Eyes: Present: PERRL, EOM intact - Neck Neck: Present: supple, normal ROM - Respiratory Respiratory effort: normal Respiratory: bilateral: diminished, rales, negative: rhonchi, wheezing - Cardiovascular Rhythm: regular Heart Sounds: Present: S1 & S2 - Extremities Extremities: no ischemia Extremity abnormal: edema - Abdominal General gastrointestinal: soft, non-tender, distended, normal bowel sounds, other (Ascites) - Integumentary Integumentary: Present: clear, warm - Psychiatric Psychiatric: cooperative, other (Mild confusion) - Neurologic Neurologic: moves all extremities HEART Score - HEART Score Troponin: Troponin T < 0.010 ng/mL (0.00-0.029) 12/07/20 04:51 Results - Labs CBC & Chem 7: 12/16/20 14:22 12/17/20 04:28 Labs: Laboratory Last Values WBC 10.4 K/mm3 (4.5-11.0) 12/16/20 14:22 RBC 3.03 M/mm3 (3.65-5.03) L 12/16/20 14:22 Hgb 9.3 gm/dl (11.8-15.2) L 12/16/20 14:22 Hct 30.0 % (35.5-45.6) L 12/16/20 14:22 MCV 99 fl (84-94) H 12/16/20 14:22 MCH 31 pg (28-32) 12/16/20 14:22 MCHC 31 % (32-34) L 12/16/20 14:22 RDW 24.5 % (13.2-15.2) H 12/16/20 14:22 Plt Count 94 K/mm3 (140-440) L 12/16/20 14:22 Add Manual Diff Complete 12/16/20 05:05 Total Counted 100 12/16/20 05:05 Seg Neutrophils % Tax Lawyer 12/16/20 05:05 Seg Neuts % (Manual) 61.0 % (40.0-70.0) 12/16/20 05:05 Band Neutrophils % 17.0 % 12/16/20 05:05 Lymphocytes % (Manual) 7.0 % (13.4-35.0) L 12/16/20 05:05 Monocytes % (Manual) 3.0 % (0.0-7.3) 12/16/20 05:05 Eosinophils % (Manual) 1.0 % (0.0-4.3) 12/05/20 14:14 Myelocytes % 12.0 % 12/16/20 05:05 Nucleated RBC % 1.0 % (0.0-0.9) H 12/16/20 05:05 Seg Neutrophils # Man 5.7 K/mm3 (1.8-7.7) 12/16/20 05:05 Band Neutrophils # 1.6 K/mm3 12/16/20 05:05 Lymphocytes # (Manual) 0.7 K/mm3 (1.2-5.4) L 12/16/20 05:05 Abs React Lymphs (Man) 0.0 K/mm3 12/16/20 05:05 Monocytes # (Manual) 0.3 K/mm3 (0.0-0.8) 12/16/20 05:05 Eosinophils # (Manual) 0.0 K/mm3 (0.0-0.4) 12/16/20 05:05 Basophils # (Manual) 0.0 K/mm3 (0.0-0.1) 12/16/20 05:05 Metamyelocytes # 0.0 K/mm3 12/16/20 05:05 Myelocytes # 1.1 K/mm3 12/16/20 05:05 Promyelocytes # 0.0 K/mm3 12/16/20 05:05 Blast Cells # 0.0 K/mm3 12/16/20 05:05 WBC Morphology Not Reportable 12/16/20 05:05 Hypersegmented Neuts Not Reportable 12/16/20 05:05 Hyposegmented Neuts Not Reportable 12/16/20 05:05 Hypogranular Neuts Not Reportable 12/16/20 05:05 Smudge Cells Not Reportable 12/16/20 05:05 Toxic Granulation Not Reportable 12/16/20 05:05 Toxic Vacuolation Not Reportable 12/16/20 05:05 Dohle Bodies Not Reportable 12/16/20 05:05 Pelger-Huet Anomaly Not Reportable 12/16/20 05:05 Tamiko Rods Not Reportable 12/16/20 05:05 Platelet Estimate Consistent w auto 12/16/20 05:05 Clumped Platelets Not Reportable 12/16/20 05:05 Plt Clumps, EDTA Not Reportable 12/16/20 05:05 Large Platelets Not Reportable 12/16/20 05:05 Giant Platelets Not Reportable 12/16/20 05:05 Platelet Satelliting Not Reportable 12/16/20 05:05 Plt Morphology Comment Not Reportable 12/16/20 05:05 RBC Morphology Not Reportable 12/16/20 05:05 Dimorphic RBCs Not Reportable 12/16/20 05:05 Polychromasia Not Reportable 12/16/20 05:05 Hypochromasia 2+ 12/16/20 05:05 Poikilocytosis 2+ 12/16/20 05:05 Anisocytosis 2+ 12/16/20 05:05 Microcytosis Not Reportable 12/16/20 05:05 Macrocytosis Not Reportable 12/16/20 05:05 Spherocytes 1+ 12/16/20 05:05 Pappenheimer Bodies Not Reportable 12/16/20 05:05 Sickle Cells Not Reportable 12/16/20 05:05 Target Cells 2+ 12/16/20 05:05 Tear Drop Cells Not Reportable 12/16/20 05:05 Ovalocytes Not Reportable 12/16/20 05:05 Helmet Cells Not Reportable 12/16/20 05:05 [place] Bodies Not Reportable 12/16/20 05:05 [place] Rings Not Reportable 12/16/20 05:05 Bernardo Cells Not Reportable 12/16/20 05:05 Bite Cells Not Reportable 12/16/20 05:05 Crenated Cell Not Reportable 12/16/20 05:05 Elliptocytes Not Reportable 12/16/20 05:05 Acanthocytes (Spur) Not Reportable 12/16/20 05:05 Rouleaux Not Reportable 12/16/20 05:05 Hemoglobin C Crystals Not Reportable 12/16/20 05:05 Schistocytes Not Reportable 12/16/20 05:05 Malaria parasites Not Reportable 12/16/20 05:05 Parrish Bodies Not Reportable 12/16/20 05:05 Hem Pathologist Commnt No 12/16/20 05:05 PT 22.3 Sec. (12.2-14.9) H 12/17/20 09:01 INR 1.91 (0.87-1.13) H 12/17/20 09:01 APTT 41.2 Sec. (24.2-36.6) H 12/17/20 09:01 Sodium 133 mmol/L (137-145) L 12/17/20 04:28 Potassium 3.3 mmol/L (3.6-5.0) L 12/17/20 04:28 Chloride 96.8 mmol/L (98-107) L 12/17/20 04:28 Carbon Dioxide 31 mmol/L (22-30) H 12/17/20 04:28 Anion Gap 9 mmol/L 12/17/20 04:28 BUN 20 mg/dL (9-20) 12/17/20 04:28 Creatinine < 0.2 mg/dL (0.8-1.3) L 12/17/20 04:28 Estimated GFR > 60 ml/min 12/17/20 04:28 BUN/Creatinine Ratio 100 % 12/17/20 04:28 Glucose 87 mg/dL (75-100) 12/17/20 04:28 POC Glucose 133 mg/dL (70-105) H 12/16/20 05:43 Calcium 7.9 mg/dL (8.4-10.2) L 12/17/20 04:28 Phosphorus 2.50 mg/dL (2.5-4.5) 12/06/20 10:01 Magnesium 1.70 mg/dL (1.7-2.3) 12/14/20 05:00 Iron 61 ug/dL (49-181) 12/06/20 13:18 TIBC 326 mcg/dL (250-450) 12/06/20 13:18 Total Bilirubin 10.10 mg/dL (0.1-1.2) H 12/17/20 04:28 Direct Bilirubin 8.6 mg/dL (0-0.2) H 12/15/20 07:44 Indirect Bilirubin 5.3 mg/dL 12/15/20 07:44 AST 47 units/L (5-40) H 12/17/20 04:28 ALT 44 units/L (7-56) 12/17/20 04:28 Alkaline Phosphatase 145 units/L (35-129) H 12/17/20 04:28 Ammonia 35.0 umol/L (25-60) 12/14/20 10:05 Troponin T < 0.010 ng/mL (0.00-0.029) 12/07/20 04:51 Total Protein 4.9 g/dL (6.3-8.2) L 12/17/20 04:28 Albumin 3.0 g/dL (3.9-5) L 12/17/20 04:28 Albumin/Globulin Ratio 1.6 % 12/17/20 04:28 TSH 1.490 mlU/mL (0.270-4.200) 12/09/20 04:44 Total Cortisol 34.0 mcg/dL () 12/09/20 04:44 Urine Color Meredith (Yellow) 12/09/20 15:48 Urine Turbidity Slightly-cloudy (Clear) 12/09/20 15:48 Urine pH 5.0 (5.0-7.0) 12/09/20 15:48 Ur Specific [place] 1.019 (1.003-1.030) 12/09/20 15:48 Urine Protein 30 mg/dl mg/dL (Negative) 12/09/20 15:48 Urine Glucose (UA) Neg mg/dL (Negative) 12/09/20 15:48 Urine Ketones Neg mg/dL (Negative) 12/09/20 15:48 Urine Blood Neg (Negative) 12/09/20 15:48 Urine Nitrite Neg (Negative) 12/09/20 15:48 Urine Bilirubin Mod (Negative) 12/09/20 15:48 Urine Ictotest 2 (Negative) 12/09/20 15:48 Urine Urobilinogen 4.0 mg/dL (<2.0) 12/09/20 15:48 Ur Leukocyte Esterase Neg (Negative) 12/09/20 15:48 Urine WBC (Auto) 31.0 /HPF (0.0-6.0) H 12/09/20 15:48 Urine RBC (Auto) 6.0 /HPF (0.0-6.0) 12/09/20 15:48 U Epithel Cells (Auto) 101.0 /HPF (0-13.0) H 12/09/20 15:48 Urine Bacteria (Auto) 1+ /HPF (Negative) 12/09/20 15:48 Urine WBC Clumps 2+ /HPF 12/09/20 15:48 Hyaline Casts 88 /LPF 12/09/20 15:48 Broad Casts 1 /LPF 12/09/20 15:48 Urine Mucus 2+ /HPF 12/09/20 15:48 Urine Osmolality 573 Mosm/kg 12/06/20 Unknown Urine Sodium 10 mmol/L 12/06/20 Unknown Fluid Type Ascitic 12/13/20 16:00 Fluid Color Yellow 12/13/20 16:00 Fluid Appearance Clear 12/13/20 16:00 Fluid WBC 9.9 /mm3 12/13/20 16:00 Fluid RBC 45.65 /mm3 12/13/20 16:00 Fluid Seg Neutrophils 0 % 12/13/20 16:00 Fluid Lymphocytes 91.0 % 12/13/20 16:00 Fluid Reactive Lymphs 0 % 12/13/20 16:00 Fluid Monocytes 9.0 % 12/13/20 16:00 Fluid Eosinophils 0 % 12/13/20 16:00 Fluid Basophils 0 % 12/13/20 16:00 Fluid Comment 12/13/20 16:00 Digoxin 0.4 ng/mL (0.9-2.0) L 12/15/20 07:44 Plasma/Serum Alcohol < 0.01 % (0-0.07) 12/05/20 14:14 Coronavirus (PCR) Negative (Negative) 12/09/20 09:29 Hepatitis A Ab Total Reactive (Nonreactive) H 12/06/20 13:18 Hep Bs Antigen Nonreactive (Negative) 12/06/20 13:18 Hep Bs Antibody, Quant <5 mIU/mL (>=10) L 12/06/20 13:18 Hepatitis C Antibody Non-reactive (NonReactive) 12/06/20 13:18 Manjarrez/IV: Voiding Method Indwelling Catheter Active Medications - Current Medications Current Medications: Generic Name Dose Route Start Last Admin Trade Name Freq PRN Reason Stop Dose Admin Albumin Human 25 gm 12/15/20 13:00 12/17/20 16:06 Albumin Human 25% (25 Gm/100 Ml) Inj IV 25 gm QDAY WESLEY Administration Albuterol 2.5 mg 12/05/20 17:11 12/09/20 20:33 Albuterol 2.5 Mg/3 Ml Nebu IH 2.5 mg Q4HRT PRN Administration Shortness Of Breath Apixaban 5 mg 12/16/20 11:00 12/17/20 15:51 Apixaban 5 Mg Tab PO Not Given Q12HR WESLEY Protocol Digoxin 0.125 mg 12/08/20 12:00 12/17/20 15:50 Digoxin 0.125 Mg Tab PO 0.125 mg DAILY WESLEY Administration Furosemide 40 mg 12/17/20 18:00 12/17/20 18:01 Furosemide 40 Mg Tab PO Not Given 0600,1800 WESLEY Lactulose 10 gm 12/17/20 11:00 12/17/20 15:49 Lactulose 20 Gm/30 Ml Oral Liqd PO 10 gm BID WESLEY Administration Lisinopril 2.5 mg 12/13/20 11:00 12/17/20 15:49 Lisinopril 5 Mg Tab PO 2.5 mg QDAY WESLEY Administration Metoprolol Tartrate 50 mg 12/14/20 11:30 12/17/20 15:50 Metoprolol Tartrate 25 Mg Tab PO 50 mg BID WESLEY Administration Multivitamins 1 each 12/06/20 10:00 12/17/20 15:50 Multivitamins ,Therapeutic Tab PO 1 each QDAY WESLEY Administration Ondansetron HCl 4 mg 12/05/20 17:11 12/17/20 10:18 Ondansetron 4 Mg/2 Ml Inj IV 4 mg Q8H PRN Administration Nausea And Vomiting Pantoprazole Sodium 40 mg 12/15/20 12:00 12/17/20 15:49 Pantoprazole 40 Mg Tab PO 40 mg QDAC WESLEY Administration Prednisolone Sodium Phosphate 20 mg 12/15/20 11:00 12/17/20 15:52 Prednisolone Sod Phosphate 15 Mg/5 Ml Oral Liqd PO 12/19/20 10:01 20 mg QDAY WESLEY Administration Rifaximin 550 mg 12/13/20 22:00 12/17/20 17:45 Rifaximin 550 Mg Tab PO 550 mg BID WESLEY Administration Sodium Chloride 10 ml 12/05/20 22:00 12/17/20 10:18 Sodium Chloride 0.9% 10 Ml Flush Syringe IV 10 ml BID WESLEY Administration Sodium Chloride 10 ml 12/05/20 17:11 12/12/20 03:25 Sodium Chloride 0.9% 10 Ml Flush Syringe IV 10 ml PRN PRN Administration LINE FLUSH Spironolactone 25 mg 12/17/20 10:30 12/17/20 15:52 Spironolactone 25 Mg Tab PO 25 mg QDAY WESLEY Administration Nutrition/Malnutrition Assess - Dietary Evaluation Nutrition/Malnutrition Findings: Nutrition Notes Start: 12/12/20 16:31 Freq: Status: Active Protocol: Document 12/17/20 16:31 (Rec: 12/17/20 16:33 [id number]) Nutrition Notes Initial or Follow up Reassessment Current Diagnosis Acute Kidney Injury Other Pertinent Diagnosis etOH dependence, Acute HfrEF Current Diet cardiac Labs/Tests Na 133 K 3.3 Pertinent Medications Zofran MVI Height 5 ft 6 in Weight 88.9 kg [place] Body Weight (kg) 64.54 BMI 31.6 Weight change and time frame wt gain noted Weight Status Overweight Subjective/Other Information RN states pt has been NPO today and is unsure of previous intakes. Limited intakes in chart that suggest pt is eating an average of 58% of meals. Percent of energy/protein needs met: 66%/75% Burn Absent Trauma Absent Current % PO Fair (50-74%) Minimum of two criteria No #1 Nutrition Diagnosis Inadequate oral intake As Evidenced by Signs and Symptoms pt eating an average of 58% of meals Diagnosis Progress(for reassessment Improved documentation) Is patient on ventilator? No Is Patient Ambulatory and/or Out of Bed No REE-([facility]-confined to bed) 5.640 Kcal/Kg value to use for calculation 22 Approximate Energy Requirements Using 1956 kcal/Kg Calculation Used for Recommendations Kcal/kg Additional Notes protein 0.8-1.2 g/k-99 g /day fluid: 1 ml/kcal Nutrition Intervention Change Diet Order: advance as able Goal #1 Meet at least 75% of protein and kcal needs via PO and ONS Anticipated Discharge Needs: cardiac Follow-Up By: 12/19/20 Additional Comments F/u: diet advancement, intakes and ONS tolerance
[2020-12-18 05:27] VITALS: BP 98/52
[2020-12-18] MEDS: FUROSEMIDE 40 MG TAB PO SCH (06:24)
[2020-12-18] MEDS ORDERED: REGADENOSON 0.4 MG/5 ML INJ IV ONE (07:20)
[2020-12-18] MEDS ORDERED: EPINEPHrine 1 MG/10 ML SYRINGE ONE (07:52)
[2020-12-18] MEDS ORDERED: SODIUM BICARB 8.4% 50 MEQ/50 ML SYRINGE IV ONE (07:52)
[2020-12-18] MEDS ORDERED: EPINEPHrine 30 MG/30 ML INJ IV ONE (07:52)
[2020-12-18 07:59] LABS: Hematocrit 34.4 % (35.5-45.6); Hemoglobin 10.6 gm/dl (11.8-15.2); Mean Corpuscular HGB Conc 31 % (32-34); Mean Corpuscular Volume 101 fl (84-94)
[2020-12-18 08:18] LABS: Calcium 8.3 mg/dL (8.4-10.2)
--- NOTE | 2020-12-18 08:22 | Event Note ---
Date: 12/18/20 Called to bedside for KASHIF DOWNEY. Per nurse patient was found pulseless and in asystole. Hospitalist running the code. Patient required multiple attempts, however, I was able to intubate the patient with the glide scope size 4, using a 7.5 ET tube. No drugs were used for intubation. Tube was visualized passing through the cords and there was confirmation by capnometry. Tube secured at 20 cm at the lip. Chest x-ray was not obtained as patient did not achieve ROSC and time of was called.
[2020-12-18 08:23] LABS: Red Cell Distribution Width 24.2 % (13.2-15.2)
--- NOTE | 2020-12-18 08:27 | Event Note ---
Date: 12/18/20 Patient was found by the nurse to be pulseless and in asystole, CODE NASREEN was called, CPR initiated per ACLS protocol supervised by block press operator Dr. Peña, patient was intubated, patient had several rounds of epi and CPR ,could not achieve ROSC, Patient could not be revived and block press operator Dr. Peña pronounced on 12/18/2020 at 0812. Refer to the code sheet for all the details Patient's daughter Ms. Pace was informed of patient's expiration Time of ; 12/18/2020 at 08:12
--- NOTE | 2020-12-18 08:44 | Death Summary ---
Summary - Providers Date of service: 12/18/20 Consults: 12/06/20 08:05 Consult to Physician [CONS] Routine Comment: Consulting Provider: DANO CAREY Physician Instructions: Reason For Exam: Severe hyponatremia, Sodium 114 Consult to Physician [CONS] Routine Comment: Consulting Provider: JOSHUA STALLINGS Physician Instructions: Reason For Exam: Afib with RVR, chest pain 12/06/20 08:07 Consult to Physician [CONS] Routine Comment: Consulting Provider: LEONA HERNANDEZ Physician Instructions: Reason For Exam: Alcohol liver disease, Bilirubin 15 Attending: SRIKANTH ROSA - summary Date of admission: 12/05/20 15:27 Date of : 12/18/20 (at 08:12) Reason for admission: Worsening shortness of breath and chest pain Significant findings: 50 YO Male with severe dilated cardiomyopathy with EF of 10 to 15% , history of atrial fibrillation, chronic alcohol use and alcohol induced cirrhosis liver , medical noncompliance , obesity was admitted through emergency room with worsening shortness of breath and chest pain of 3 days duration , patient also had complaints of intermittent palpitations A. fib with rapid ventricular rate . Patient was admitted appropriately managed , evaluated by personnel supervisor medications were optimized. Patient strongly advised to comply with medications, diet, and follow-up visits. Patient has history of cirrhosis liver with ascites, GI evaluated the patient, recommended abdominal paracentesis, removal of 60 mils of peritoneal fluid, sent for analysis, negative for malignancy patient had severe shortness of breath and fluid overload nephrology has evaluated the patient for severe hyponatremia due to alcohol and hypoalbuminemia medications optimized patient was also placed on CIWA protocol ,closely monitored for alcohol withdrawal symptoms and managed appropriately patient was critically ill and on 12/18/2020 patient had cardiac arrest CODE BLUE was called noted to be in pulseless electrical activity and asystole ,CPR was done per ACLS protocol however patient could not be revived and was pronounced on 12/18/2020 at 08:12 ,please refer to medical records for all the details . Family was notified and explained all the details, answered all their questions and offered my condolences. Time of ; on 12/18/2020 at 08:12 Final diagnosis: --Acute hypoxic respiratory failure: Current Visit: Yes Status: Acute --PEA cardiac arrest; 12/18/2020 Current Visit: Yes Status: Acute Patient had prolonged resuscitation with CPR per ACLS protocol With multiple rounds of epi, could not be revived did not achieve ROSC Patient on 12/18/2020 at 08:12 Patient's daughter ARI was notified -- Acute HFrEF (heart failure with reduced ejection fraction) Current Visit: Yes Status: Acute --Dilated cardiomyopathy EF 10 to 15% Current Visit: Yes Status: Acute -- Atrial fibrillation with RVR[rate controlled] Current Visit: Yes Status: Acute --Hypokalemia; Current Visit: Yes Status: Acute --Hyponatremia mild; Current Visit: Yes Status: Acute --Moderate malnutrition/hypoalbuminemia Current Visit: Yes Status: Acute --Acute kidney injury (ASHLYN) with acute tubular necrosis (ATN) Current Visit: Yes Status: Acute --Alcoholic cirrhosis of liver with ascites Current Visit: Yes Status: Acute --alcohol withdrawal symptoms Current Visit: Yes Status: Acute --Chronic EtOH use Current Visit: Yes Status: Chronic --Acute metabolic encephalopathy Current Visit: Yes Status: Acute Patient had PEA cardiac arrest status post CPR Procedures/treatments rendered: Abdominal paracentesis; and removal of 60 mL of peritoneal fluid sent for fluid analysis[negative for malignancy] Pertinent studies: Multiple chest x-rays CT abdomen and pelvis Echocardiogram Abdominal ultrasound Abdominal paracentesis Disposition: Patient - Final diagnosis (1) Cardiac arrest with pulseless electrical activity Note: Final diagnosis: (2) Dilated cardiomyopathy Note: Final diagnosis: (3) Alcoholic cirrhosis of liver with ascites Note: Final diagnosis: (4) Acute respiratory failure with hypoxia Note: Final diagnosis: (5) Atrial fibrillation with RVR Note: Final diagnosis: (6) Ascites Qualifiers: Ascites type: due to alcoholic cirrhosis Qualified Code(s): K70.31 - Alcoholic cirrhosis of liver with ascites Note: Final diagnosis:
--- NOTE | 2020-12-18 08:53 | Event Note ---
Date: 12/18/20 Patient's daughter, ARI Pace was contacted at [phone] multiple times at the onset of CODE BLUE, during the resuscitation. and discussed in detail patient's critical condition, goals of treatment, and CODE STATUS, each time patient's daughter requested to do everything to save him I also called and informed her that in spite of prolonged CPR and multiple rounds of epi and other resuscitation measures ,her father could not be revived, and at 08:12 On 12/18/2020. I offered my condolences
[2020-12-18 11:32] LABS: Band Neutrophils # (Manual) 1.2 K/mm3; Myelocytes # (Manual) 0.3 K/mm3; Total Cells Counted 100
[2020-12-18 11:33] LABS: Hypochromasia 2+; Platelet Clumps Rare; Platelet Estimate Consistent w Auto; Target Cells Few
[2020-12-18 11:40] LABS: Platelet Count 75 K/mm3 (140-440)
[2020-12-19 07:21] LABS: Total Protein,Body Fluid < 3.0 (15.0-45.0)
== END 2020-12-18 13:01 | DRG 432 ==
LOC: ED 13:14 → CC1 15:27 → 4A 17:14
PROVIDERS: ADMIT Internal Medicine; ATTEND Internal Medicine
PROC: 0W9G3ZZ Drainage of Peritoneal Cavity, Percutaneous Approach (ICD-10-PCS; principal; 2020-12-13)
PROC: 5A12012 Performance of Cardiac Output, Single, Manual (ICD-10-PCS; 2020-12-18)
DX: K70.31 Alcoholic cirrhosis of liver with ascites (principal); N17.0 Acute kidney failure with tubular necrosis; I50.21 Acute systolic (congestive) heart failure; G93.41 Metabolic encephalopathy; I48.20 Chronic atrial fibrillation, unspecified; E87.1 Hypo-osmolality and hyponatremia; E44.0 Moderate protein-calorie malnutrition; Z20.822 Contact with and (suspected) exposure to COVID-19; I42.0 Dilated cardiomyopathy; K70.9 Alcoholic liver disease, unspecified; F10.20 Alcohol dependence, uncomplicated; Z68.31 Body mass index [BMI] 31.0-31.9, adult; I46.9 Cardiac arrest, cause unspecified; Z83.3 Family history of diabetes mellitus; E83.42 Hypomagnesemia; E87.5 Hyperkalemia; K70.11 Alcoholic hepatitis with ascites
CPT/HCPCS: 36415; 49083; 71045; 71046; 74177; 76705; 80048; 80053; 80076; 80162; 80320; 81001; 82040; 82140; 82247; 82248; 82533; 82565; 82962; 83550; 83735; 83935; 84100; 84160; 84300; 84443; 84484; 85007; 85025; 85027; 85610; 85730; 86706; 86709; 86803; 87086; 88112; 88305; 89051; 93005; 93306; 94640; 94760; G0378; C1729; G0480; J0171; J0282; J0696; J1170; J1644; J1940; J2060; J2270; J2405; J3411; J3430; J3475; J7030; J7060; J7510; P9047; Q9967; U0003